=== PATIENT | female | born 1995 | race Caucasian/White ===

== ENCOUNTER 2020-01-12 11:31 | Emergency (ER) | payer MEDICARE, SELFPAY ==
[2020-01-12 11:48] VITALS: BP 112/68; PULSE 78; RESP 18; TEMP 37.1; O2SAT 100
--- NOTE | 2020-01-12 11:58 | ED.EYEPROB ---
HPI - Eye Problem General Chief complaint: Eye Problems Stated complaint: right eye Time Seen by Provider: 01/12/20 11:55 Source: patient and RN notes reviewed Mode of arrival: ambulatory Limitations: no limitations History of Present Illness HPI Narrative: 24-year-old female presents with concern for right eyelid swelling and tenderness. Reports occasional blurry vision. Denies injury, foreign body, drainage MD chief complaint: eye pain Related Data Allergies Allergy/AdvReac Type Severity Reaction Status Date / Time Quinolones AdvReac Unknown Other Verified 01/12/20 11:48 Review of Systems Review of Systems: Narrative: CONSTITUTIONAL: Denies malaise, chills, sweats, or fever. EYES: Reports blurry vision in the right eye, right eyelid swelling, tenderness. Denies drainage, eye redness. ENT: Denies rhinorrhea, congestion, sinus pain, otalgia or sore throat. CARDIOVASCULAR: Denies chest pain, palpitations SKIN: Denies rash or itching. MUSCULOSKELETAL: Denies myalgia. NEUROLOGIC: Denies headache. All systems reviewed & are unremarkable except as noted in HPI and below PMFSH Comments At time of signature, agree with nursing past medical, surgical, social and family history. There is no relevant family history pertinent to the presenting complaint Exam Narrative: Exam Narrative: GENERAL: Well-appearing, well-nourished, and in no acute distress. HEAD: Normocephalic, atraumatic. EYES: PERRLA, conjunctivae clear, and EOMI. No nystagmus. Right upper eyelid superficial edema, tenderness. No periorbital edema ENT: Nares clear, turbinates pink, no rhinorrhea or epistaxis. Mucous membranes moist. NECK: Supple. CHEST: No respiratory distress. Speaks in full sentences. HEART: Regular rate and rhythm. SKIN: Warm, dry, no rash. NEURO: Alert and oriented x3. PSYCH: Normal mood and affect Course Course Emergency Course: Patient is aware of diagnosis, understands and agrees to treatment plan. Anticipatory guidance given. Patient agrees to follow-up as directed and is aware of reasons to seek care at the emergency department. Portions of this record may have been created with voice recognition software Vital Signs Vital signs: Vital Signs Temperature 98.8 F 01/12/20 11:48 Pulse Rate 78 01/12/20 11:48 Respiratory Rate 18 01/12/20 11:48 Blood Pressure 112/68 01/12/20 11:48 Pulse Oximetry 100 01/12/20 11:48 Temperature 98.8 F 01/12/20 11:48 Pulse Rate 78 01/12/20 11:48 Respiratory Rate 18 01/12/20 11:48 Blood Pressure 112/68 01/12/20 11:48 Pulse Oximetry 100 01/12/20 11:48 Reviewed. MDM - Eye Problem MDM Narrative Medical decision making narrative: Consideration of the following conditions may be warranted for the presenting problem, they are not final diagnoses: Bacterial conjunctivitis, allergic conjunctivitis, viral conjunctivitis, foreign body, blepharitis, chalazion, hordeolum, corneal abrasion. Exam findings show no acute concerns or changes; patient is non-toxic appearing and is in no distress. Patient is appropriate for outpatient treatment and follow-up. Critical Care Time Critical Care Time Critical Care Time: No Discharge Plan Discharge Clinical Impression: Hordeolum Qualifiers: Hordeolum type: internum Laterality: right Eyelid: upper Qualified Code(s): H00.021 - Hordeolum internum right upper eyelid Patient Disposition: Home, Self-Care Condition: Stable Instructions: Antibiotic Maliha Mancia (ED) Additional Instructions: Do not touch or rub your eye. Use a warm washcloth on your eye for 15 minutes at least 4 times daily Take antibiotics Practice good handwashing and hygiene to prevent spread of infection You may take Tylenol or ibuprofen for pain Follow-up with PCP or fabrication supervisor if condition is not improving in 2-3days. Go to the emergency room if you have pain behind your eye, pressure behind her eye, difficulty seeing, or other severe symptoms Prescri
== END 2020-01-12 12:11 | disposition home or self-care (01) ==
PROVIDERS: Emergency Provider Nurse Practitioner; PCP Family Medicine
DX: H00.021 Hordeolum internum right upper eyelid (principal)
CPT/HCPCS: 99213; G0463

== ENCOUNTER 2020-03-18 15:24 | Emergency (ER) | payer MEDICARE, SELFPAY ==
--- NOTE | ~2020-03-18 | CT_ITS ---
EXAMINATION: CT abdomen pelvis w con DATE: 03/18/2020 16:51 INDICATION: Low abdominal pain. TECHNIQUE: Computed tomography (CT) of the abdomen and pelvis was performed with 100 mL Omnipaque 350 intravenous contrast. Automated exposure control and iterative reconstruction technique were employe d. The dose-length product was 204.29 mGy-cm. COMPARISON: CT abdomen and pelvis 01/22/2018 FINDINGS: The visualized portions of the lung bases are clear without pneumonia or pleural effusion. The heart size is normal. No pericardial effusion. The liver, gallbladder, spleen, pancreas, adrenal glands, and kidneys are normal. There is a Sherwood catheter in expected position. There are no dilated loops of bowel. There is a large volume of stool in colon. The appendix is normal. There are no patho logically enlarged lymph nodes. There is no free intraperitoneal fluid. There is a retained electrode in right S3 neural foramen. The bones are unremarkable. IMPRESSION: 1. Retained electrode in right S3 neural foramen. Reviewed, dictated and finalized at location A.
[2020-03-18 15:31] VITALS: BP 112/87; PULSE 99; RESP 17; TEMP 37.1; O2SAT 99
[2020-03-18 15:58] LABS: Basophils Percent Auto 0.3 % (0.2-1.2); Eosinophils Absolute Auto 0.1 K/mm3 (0-0.3); Eosinophils Percent Auto 0.6 % (0-4.4); Hematocrit 42.5 % (37.0-47.0); Hemoglobin 14.7 g/dL (12.0-15.0); Immature Granulocyte Absolute 0.03 K/mm3 (0.00-0.031); Immature Granulocyte Percent A 0.3 % (0-0.5); Lymphocytes Absolute Auto 2.58 K/mm3 (0.9-3.2); Lymphocytes Percent Auto 22.3 % (18.3-44.2); Mean Corpuscular HGB Conc 34.6 g/dl (32-36); Mean Corpuscular Hemoglobin 31.3 pg (26-34); Mean Corpuscular Volume 90.4 fl (80-100); Mean Platelet Volume 10.3 fl (7.4-10.4); Monocytes Absolute Auto 0.8 K/mm3 (0.1-0.6); Monocytes Percent Auto 6.6 % (2.6-8.5); Neutrophils Absolute Auto 8.1 K/mm3 (1.3-6.7); Neutrophils Percent Auto 69.9 % (45.5-73.1); Platelet Count Result 284 k/mm3 (150-375); Red Cell Distribution Width 11.9 % (11.5-14.5); White Blood Count 11.6 K/mm3 (4.5-10.0)
[2020-03-18 16:02] LABS: Add Urine Microscopic? YES; Appearance Urine Clear (Clear); Bilirubin Urine Negative (Negative); Blood Urine Negative (Negative); Glucose Urine UA Negative (Negative); Ketones Urine Negative (Negative); Leukocyte Esterase Ur Trace LEU/UL (Negative); Mucus Urine Few /lpf; Nitrate Urine Negative (Negative); Protein Urine 1+ mg/dL (Negative); Squamous Epithelial Cell Urine Occasional /hpf (Few); Urobilinogen Urine Negative mg/dL (<2.0)
--- NOTE | 2020-03-18 16:06 | ED.ABDPAIN ---
HPI - Abdominal Pain General Chief Complaint: Urogenital-Female Stated Complaint: SOFIA CATHETER PAIN Time Seen by Provider: 03/18/20 15:44 Source: patient Mode of arrival: ambulatory Limitations: no limitations History of Present Illness HPI narrative: This patient is a 25 year old female with history of urethral stricture, interstitial cystitis, and fibromyalgia who presents for evaluation of lower abdominal pain. Patient states she was evaluated at [facility] last night for urinary retention and lower abdominal pain. She states that she developed lower abdominal yesterday so she went to [facility]. She had a sofia catheter inserted but she reports her lower abdominal pain has been constant and it is worsening. She continues to have drainage from her catheter. She reports nausea and vomiting. Related Data Allergies Allergy/AdvReac Type Severity Reaction Status Date / Time Quinolones AdvReac Unknown Other Verified 03/18/20 17:01 Review of Systems Review of Systems: All systems reviewed & are unremarkable except as noted in HPI and below Constitutional: Constitutional: Denies chills and Denies fever(s) Gastrointestinal: Gastrointestinal: Reports abdominal pain, Reports nausea and Reports vomiting Genitourinary: Genitourinary: Reports pelvic pain and Reports vaginal discharge Musculoskeletal: Musculoskeletal: Reports back pain PMFSH Past Medical History Medical History (Updated 03/18/20 @ 19:07 by Stephanie Walsh MD) Interstitial cystitis Other urethral stricture, female Surgical History Surgical History (Updated 03/18/20 @ 16:09 by Stephanie Walsh MD) History of bladder surgery Social History Social History (Updated 03/18/20 @ 16:07 by Stephanie Walsh MD) Smoking packs per day: 0.5 Smoking cigarettes per day: 10.0 Gender identity (if verbalized by the patient): Female Exam Narrative: Exam Narrative: GENERAL: Well-appearing, well-nourished, and in no acute distress. HEAD: Normocephalic, atraumatic EYES: PERRLA and EOMI, conjunctiva clear without discharge THROAT:Mucous membranes moist, NECK: Supple, without lymphadenopathy or mass RESPIRATORY: No respiratory distress, Airway patent, Respirations non-labored, Clear to auscultation without rales, rhonchi or wheeze HEART: Regular rate and rhythm. No murmur heard. Normal peripheral pulses. ABDOMEN: Soft, suprapubic, nondistended, normal active bowel sounds. No masses. No rebound or guarding, No organomegaly. EXTREMITIES: No edema, normal strength with full range of motion. SKIN: Warm, dry, normal color without rash NEURO: Alert and oriented x3. CN 2-12 grossly intact. No focal deficits. PSYCH: Normal mood and affect. : Speculum Exam - Vagina: abnormal vaginal discharge yellow Speculum Exam - Cervix: Cervical os closed Bimanual exam- vagina & uterus: cervical motion tenderness Course Reevaluation(s) Reevaluation #1: Patient appears comfortable. She has quite a bit of discharge so will treat for PID. CT does not show cause of pain and catheter is functionly. Patient was notified of electrode Date: 03/18/20 Time: 19:05 Vital Signs Vital signs: Vital Signs Temperature 98.7 F 03/18/20 15:31 Pulse Rate 99 03/18/20 15:31 Respiratory Rate 17 03/18/20 15:31 Blood Pressure 112/87 03/18/20 15:31 Pulse Oximetry 99 03/18/20 15:31 Temperature 98.7 F 03/18/20 15:31 Pulse Rate 81 03/18/20 19:39 Respiratory Rate 16 03/18/20 19:39 Blood Pressure 112/58 L 03/18/20 19:39 Pulse Oximetry 98 03/18/20 19:39 MDM - Abdominal Pain Lab Data Attestation: I reviewed the patient's lab results. Result diagrams: 03/18/20 15:50 03/18/20 15:50 Labs: Lab Results 03/18/20 03/18/20 03/18/20 Range/Units 15:50 15:50 15:50 WBC 11.6 H (4.5-10.0) K/mm3 RBC 4.70 (4.2-5.4) M/mm3 Hgb 14.7 (12.0-15.0) g/dL Hct 42.5 (37.0-47.0) % MCV 90.4 (80-100) fl [facility]
[2020-03-18 16:07] LABS: Specific Grav Ur 1.031 (1.001-1.035)
[2020-03-18 16:08] LABS: Color Urine Light Yellow (Yellow)
[2020-03-18 16:09] LABS: Alanine Aminotransferase 21 U/L (4-35); Albumin Level 4.8 g/dL (3.5-5.1); Alkaline Phosphatase 66 U/L (38-126); Aspartate Amino Transferase 28 U/L (14-36); Bilirubin,Total 1.2 mg/dL (0.2-1.3); Blood Urea Nitrogen 19 mg/dL (7-17); Calcium 9.7 mg/dL (8.4-10.2); Carbon Dioxide 20 mmol/L (22-30); Chloride 106 mmol/L (98-107); Estimated CRCL calculation 103 ml/min; Estimated Glomerular Filt Rate > 60; Glucose 90 mg/dL (65-105); Potassium 4.2 mmol/L (3.4-5.0); Sodium 136 mmol/L (137-145)
[2020-03-18] MEDS: ONDANSETRON INJ 4 MG/2 ML VIAL IV PUSH (16:24)
[2020-03-18] MEDS: KETOROLAC 30 MG/ML VIAL (*BKC) IV PUSH (16:24)
[2020-03-18] MEDS: HYOSCYAMINE SULFATE 0.0625 MG TABLET PO (17:04)
[2020-03-18] MEDS: cefTRIAXone 250 MG VIAL IM (18:46)
[2020-03-18 19:39] VITALS: BP 112/58; PULSE 81; RESP 16; O2SAT 98
== END 2020-03-18 19:41 | disposition home or self-care (01) ==
PROVIDERS: Emergency Medicine; Emergency Provider General Practice; PCP Family Medicine
DX: N73.9 Female pelvic inflammatory disease, unspecified (principal)
CPT/HCPCS: 36415; 74177; 80053; 81001; 81025; 85025; 87070; 87491; 87591; 87808; 96372; 96374; 96375; 99284; A9270; J0696; J1885; J2405; Q9967

== ENCOUNTER → 2020-04-09 14:28 | Outpatient (CLI) | payer MEDICARE, SELFPAY ==
--- NOTE | ~2020-04-09 | US_ITS ---
US breast LT limited 04/09/2020 14:44 Indication: Follow-up lump in left breast. Patient recently stopped nursing. Family history of breast cancer. Procedure: High-resolution ultrasound of the left breast. Comparison: 09/09/2019 Findings: At 2-3:00 position, 4 cm from the nipple in the area of palpable concern there is a relativ raiza isoechoic mass with internal vascularity and central echogenicity. This mass measures 1.7 x 1.7 x 0.5 cm, likely an intramammary lymph node. No other masses identified. Impression: 1: Probable benign left breast mass at 2-3:00, 4 cm from the nipple. BI-RADS CATEGORY 3-PROBABLY BENIGN FINDING RECOMMENDATION: Six-month follow-up left breast ultrasound recommended. Reviewed, dictated and finalized at location A. Impression: 1: Probable benign left breast mass at 2-3:00, 4 cm from the nipple. BI-RADS CATEGORY 3-PROBABLY BENIGN FINDING RECOMMENDATION: Six-month follow-up left breast ultrasound recommended.
== END ==
PROVIDERS: PCP Family Medicine; Visit Provider Nurse Practitioner Obstetrics & Gynecology
DX: N63.20 Unspecified lump in the left breast, unspecified quadrant (principal); R92.8 Other abnormal and inconclusive findings on diagnostic imaging of breast
CPT/HCPCS: 76642

== ENCOUNTER 2020-05-09 18:15 | Emergency (ER) | payer MEDICARE, SELFPAY ==
--- NOTE | 2020-05-09 19:08 | PC.NURSE ---
Pt to intake desk from waiting room. Pt states she called a different hospital and they dont have a wait so she is going there. Pt left with a steady gait to parking lot.
== END 2020-05-09 19:08 | disposition left against medical advice (07) ==
PROVIDERS: PCP Family Medicine
DX: Z53.21 Procedure and treatment not carried out due to patient leaving prior to being seen by health care provider (principal)
CPT/HCPCS: 99199

== ENCOUNTER 2020-06-26 19:04 | Emergency (ER) | payer MEDICARE, SELFPAY ==
--- NOTE | ~2020-06-26 | XR_ITS ---
LUMBAR SPINE INDICATION: Low back pain with radiation to the leg TECHNIQUE: 3 views lumbar spine COMPARISON: None FINDINGS: No fracture, subluxation or dislocation. No evidence for spondylolysis or spondylolisthesi s. Vertebral bodies and disk spaces are preserved. There is residual stimulator lead in the right pe lvis. IMPRESSION: 1: No acute abnormality of the lumbar spine identified. Reviewed, dictated and finalized at location A.
--- NOTE | ~2020-06-26 | XR_ITS ---
XR pelvis 1-2V 06/26/2020 21:38 Indication: Left leg pain extending to the toes. Procedure: AP view of the pelvis Comparison: No prior studies for comparison. Findings: Pelvic rings are intact. Sacral foramen are symmetric. Hips are symmetric. No fracture or t raumatic malalignment. There is residual segments of stimulator lead in the pelvis. Impression: 1: No significant bone or joint abnormality. Reviewed, dictated and finalized at location A. Impression: 1: No significant bone or joint abnormality.
[2020-06-26 19:13] VITALS: BP 144/102; PULSE 81; RESP 20; TEMP 36.4; O2SAT 100
--- NOTE | 2020-06-26 21:04 | ED.EXTPRO ---
HPI - Extremity Problem General Chief complaint: Extremity Problem,Nontraumatic Stated complaint: left leg pain Time Seen by Provider: 06/26/20 20:13 Source: patient History of Present Illness HPI Narrative: 25-year-old female presents to emergency department for left inner thigh discomfort for the past 3 days that radiates down to her foot. Patient states she has never had this in the past before. Patient states it is a burning sensation, and notes some shooting pain. Denies any history of injuries or trauma. She states she has taken 800 mg of Motrin to help with the pain. Patient denies , last menstrual cycle 4 days ago. No urinary symptoms. No abdominal pain. No nausea or vomiting. Related Data Home Medications Medication Instructions Recorded Confirmed No Home Medications 06/26/20 06/26/20 Allergies Allergy/AdvReac Type Severity Reaction Status Date / Time Quinolones AdvReac Unknown Other Verified 06/26/20 21:04 Review of Systems Review of Systems: Narrative: CONSTITUTIONAL: Denies fever, chills, or sweats. EYES: Denies visual changes, redness, or discharge. ENT: Denies rhinorrhea, congestion, sore throat, or otalgia. CARDIOVASCULAR: Denies chest pain, palpitations, or edema. RESPIRATORY: Denies cough or dyspnea. GASTROINTESTINAL: Denies abdominal pain, nausea, vomiting, or diarrhea. GENITOURINARY: Denies dysuria or hematuria. SKIN: Denies rash or itching. MUSCULOSKELETAL: Left leg discomfort NEUROLOGIC: Left leg numbness, and shooting pain PSYCHIATRIC: Denies anxiety or depression. All systems reviewed & are unremarkable except as noted in HPI and below (ROS) PMFSH Past Medical History Medical History Interstitial cystitis Other urethral stricture, female Surgical History Surgical History History of bladder surgery Social History Social History Smoking packs per day: 0.5 Smoking cigarettes per day: 10.0 Gender identity (if verbalized by the patient): Female Exam Narrative: Exam Narrative: GENERAL: Well-appearing, well-nourished, and in no acute distress. HEAD: Normocephalic, atraumatic. EYES: PERRLA and EOMI. ENT: Nares clear, no rhinorrhea or epistaxis. Mucous membranes moist. NECK: Supple. CHEST: Clear to auscultation. No respiratory distress. HEART: Regular rate and rhythm. No murmur heard. Normal peripheral pulses. 1+ DP pulses bilaterally. ABDOMEN: Soft, nontender, nondistended, normal active bowel sounds. EXTREMITIES: Normal range of motion. No edema. MSK: Left inner thigh pain with straight leg raise to 45 degrees. SKIN: Warm, dry, no rash. NEURO: No focal deficits. Alert and oriented x3. Equal sensation to light touch of lower extremities bilaterally PSYCH: Normal mood and affect. Course Vital Signs Vital signs: Vital Signs Temperature 36.4 C 06/26/20 19:13 Pulse Rate 81 06/26/20 19:13 Respiratory Rate 20 06/26/20 19:13 Blood Pressure 144/102 H 06/26/20 19:13 Pulse Oximetry 100 06/26/20 19:13 Temperature 36.6 C 06/26/20 22:39 Pulse Rate 67 06/26/20 22:39 Respiratory Rate 16 06/26/20 22:39 Blood Pressure 121/70 06/26/20 22:39 Pulse Oximetry 98 06/26/20 22:39 MDM - Extremity (Nontraumatic) MDM Narrative Medical decision making narrative: 22:55 -evaluated patient, no new complaints at this time. Patient has unremarkable blood work and x-ray. D-dimer negative, low suspicion for DVT at this time. Patient likely has some type of tendinitis or muscle strain. No history of IV drug use. Low suspicion for epidural abscess or cauda equina. Counseled patient to take Tylenol or Motrin/ibuprofen as needed for pain. Follow-up with her medical provider within 1 week. Return to emergency department if the symptoms persist, worsen, or other concerns Medical Records Attestat
[2020-06-26 21:22] LABS: Basophils Absolute Auto 0.1 K/mm3 (0.0-0.1); Basophils Percent Auto 0.5 % (0.2-1.2); Eosinophils Absolute Auto 0.1 K/mm3 (0-0.3); Eosinophils Percent Auto 1.2 % (0-4.4); Hematocrit 43.8 % (37.0-47.0); Hemoglobin 14.8 g/dL (12.0-15.0); Immature Granulocyte Absolute 0.03 K/mm3 (0.00-0.031); Immature Granulocyte Percent A 0.3 % (0-0.5); Lymphocytes Absolute Auto 3.54 K/mm3 (0.9-3.2); Lymphocytes Percent Auto 33.6 % (18.3-44.2); Mean Corpuscular HGB Conc 33.8 g/dl (32-36); Mean Corpuscular Volume 91.8 fl (80-100); Mean Platelet Volume 10.3 fl (7.4-10.4); Monocytes Absolute Auto 0.6 K/mm3 (0.1-0.6); Monocytes Percent Auto 5.6 % (2.6-8.5); Neutrophils Absolute Auto 6.2 K/mm3 (1.3-6.7); Neutrophils Percent Auto 58.8 % (45.5-73.1); Platelet Count Result 237 k/mm3 (150-375); Red Blood Count 4.77 M/mm3 (4.2-5.4); Red Cell Distribution Width 11.4 % (11.5-14.5); White Blood Count 10.6 K/mm3 (4.5-10.0)
[2020-06-26] MEDS: KETOROLAC 15 MG/ML VIAL (*BKC) IV PUSH (21:22)
[2020-06-26 21:23] VITALS: BP 111/74; PULSE 62; RESP 18; TEMP 36.8; O2SAT 99
[2020-06-26 21:33] LABS: Alanine Aminotransferase 21 U/L (4-35); Albumin Level 4.5 g/dL (3.5-5.1); Alkaline Phosphatase 48 U/L (38-126); Anion Gap 10 mmol/L (8-16); Aspartate Amino Transferase 26 U/L (14-36); Bilirubin,Total 0.6 mg/dL (0.2-1.3); Blood Urea Nitrogen 13 mg/dL (7-17); Calcium 9.7 mg/dL (8.4-10.2); Carbon Dioxide 26 mmol/L (22-30); Chloride 104 mmol/L (98-107); Estimated CRCL calculation 98 ml/min; Estimated Glomerular Filt Rate > 60; Glucose 123 mg/dL (65-105); Potassium 3.5 mmol/L (3.4-5.0); Sodium 140 mmol/L (137-145)
[2020-06-26 21:59] LABS: D Dimer 0.28 ug/mL (<0.48)
[2020-06-26 22:39] VITALS: BP 121/70; PULSE 67; RESP 16; TEMP 36.6; O2SAT 98
== END 2020-06-26 23:12 | disposition home or self-care (01) ==
PROVIDERS: Emergency Provider Emergency Medicine; PCP Family Medicine
DX: S86.912A Strain of unspecified muscle(s) and tendon(s) at lower leg level, left leg, initial encounter (principal); X58.XXXA Exposure to other specified factors, initial encounter
CPT/HCPCS: 36415; 72100; 72170; 80053; 81025; 85025; 85380; 96374; 99284; J1885

== ENCOUNTER 2020-11-12 17:57 | Emergency (ER) | payer MEDICARE, SELFPAY ==
--- NOTE | 2020-11-12 18:00 | ED.GENADULT ---
HPI - General Adult General Chief complaint: Upper Respiratory Infection Stated complaint: Sore Throat Time Seen by Provider: 11/12/20 18:00 Source: patient Mode of arrival: ambulatory Limitations: no limitations History of Present Illness HPI narrative: 25-year-old female patient presents to the [facility] with complaints of sore throat that started last night. Patient states that she thought it might have been allergies however today she started feeling kind of not well and having some body aches and just overall not feeling well. Denies fevers, ear pain, runny nose, stuffy nose or coughing. Denies any abdominal pain, nausea, vomiting or diarrhea. Patient was Covid positive in August 2020. Related Data Home Medications Medication Instructions Recorded Confirmed No Home Medications 06/26/20 06/26/20 Allergies Allergy/AdvReac Type Severity Reaction Status Date / Time Quinolones AdvReac Unknown Other Verified 11/12/20 18:07 Review of Systems Review of Systems: Narrative: CONSTITUTIONAL: Denies fever, chills, or sweats. Positive body aches EYES: Denies visual changes, redness, or discharge. ENT: Denies rhinorrhea, congestion, positive sore throat, denies otalgia. CARDIOVASCULAR: Denies chest pain, palpitations, or edema. RESPIRATORY: Denies cough or dyspnea. GASTROINTESTINAL: Denies abdominal pain, nausea, vomiting, or diarrhea. GENITOURINARY: Denies dysuria or hematuria. SKIN: Denies rash or itching. MUSCULOSKELETAL: Denies back pain, joint pain, or myalgia. NEUROLOGIC: Denies headache, numbness, or weakness. PSYCHIATRIC: Denies anxiety or depression. [facility] Past Medical History Medical History (Updated 11/12/20 @ 18:28 by KEVIN Sue) Interstitial cystitis Other urethral stricture, female SARS-CoV-2 positive August 2020 Surgical History Surgical History History of bladder surgery Social History Social History Smoking packs per day: 0.5 Smoking cigarettes per day: 10.0 Gender identity (if verbalized by the patient): Female Comments At the time of my signature I agree with nursing past medical history, surgical, social, and family history. There is no relevant family history pertinent to the presenting complaint. Exam Narrative: Exam Narrative: GENERAL: Well-appearing, well-nourished, and in no acute distress. HEAD: Normocephalic, atraumatic. EYES: PERRLA and EOMI. ENT: Nares clear, no rhinorrhea or epistaxis. Mucous membranes moist. Posterior pharynx with slight erythema. No tonsillar edema no exudates or lesions present. Bilateral TMs are clear with no erythema or foreign bodies in the canal. NECK: Supple. No lymphadenopathy CHEST: Clear to auscultation. No respiratory distress. HEART: Regular rate and rhythm. No murmur heard. Normal peripheral pulses. ABDOMEN: Soft, nontender, nondistended, normal active bowel sounds. EXTREMITIES: Normal range of motion. No edema. SKIN: Warm, dry, no rash. NEURO: No focal deficits. Alert and oriented x3. Course Reevaluation(s) Reevaluation #1: Reevaluated patient after her strep test had resulted. Notified her that her rapid strep today is negative. Discussed with patient we will send it off for culture and if the culture comes back positive in the next day or 2 then we will call her and place her on antibiotics at that time. Discussed with patient I encouraged her to take a 24-hour antihistamine, warm salt water gargles, Tylenol and ibuprofen as needed for pain. Patient verbalized understanding denies any other questions or concerns at this time. Date: 11/12/20 Time: 18:29 Vital Signs Vital signs: Vital Signs Temperature 35.8 C L 11/12/20 18:19 Pulse Rate 58 L 11/12/20 18:19 Respiratory Rate 16 11/12/20 18:19 Blood Pressure 106/73 11/12/20 18:19 Pulse Oximetry 100 11/12/20 18:19 Temperature 35.8 C L 11/12/20 1
[2020-11-12 18:19] VITALS: BP 106/73; PULSE 58; RESP 16; TEMP 35.8; O2SAT 100
== END 2020-11-12 18:30 | disposition home or self-care (01) ==
PROVIDERS: Emergency Provider Nurse Practitioner Family; PCP Family Medicine
DX: J02.9 Acute pharyngitis, unspecified (principal); F17.210 Nicotine dependence, cigarettes, uncomplicated; Z86.16 Personal history of COVID-19
CPT/HCPCS: 87081; 87880; 99213; G0463

== ENCOUNTER 2021-12-03 13:55 | Emergency (ER) | payer MEDICARE, SELFPAY ==
[2021-12-03 14:04] VITALS: BP 119/64; PULSE 92; RESP 18; TEMP 36.6; O2SAT 100
--- NOTE | 2021-12-03 14:38 | ED.SKABFB ---
HPI - Skin/Abscess/Foreign Bdy General Chief complaint: Skin/Abscess/Foreign Body Stated complaint: Lt Breast Pain,Fever,Vomiting Time Seen by Provider: 12/03/21 14:10 Source: patient Mode of arrival: ambulatory Limitations: no limitations History of Present Illness HPI narrative: Ms. Catalan is a 26-year-old female patient presenting to the clinic today with complaints of left-sided breast pain, fever, and vomiting. This all began last night. She reports that she has breast pain to the mid breast. She had contacted her OB and they thought that she may have the beginning of some mastitis and recommended her her to be evaluated in urgent care today. She denies any breast changes or discharge coming from her nipples. She is 17 weeks . Has a 3-year-old at home. She is not currently breast-feeding. Has taken some Tylenol this morning and this had alleviated her temperature. She has past medical history of interstitial cystitis. Related Data Home Medications Medication Instructions Recorded Confirmed [id number] 1 pkg PO DAILY 12/03/21 12/03/21 [Daily ] Allergies Allergy/AdvReac Type Severity Reaction Status Date / Time Quinolones AdvReac Unknown Other Verified 12/03/21 14:08 Review of Systems Review of Systems: Pertinent positives per HPI. Patient denies any rash, headache, visual changes, dizziness, cough, runny nose, sore throat, shortness of breath, chest pain, palpitations, nausea, vomiting, diarrhea, constipation, abdominal pain, or any urinary issues. [facility] Past Medical History Medical History Interstitial cystitis Other urethral stricture, female SARS-CoV-2 positive August 2020 Surgical History Surgical History History of bladder surgery Social History Social History Smoking packs per day: 0.5 Smoking cigarettes per day: 10.0 Gender identity (if verbalized by the patient): Female Comments At the time of my signature, I reviewed and agree with the nursing past medical, surgical, social, and family history. There is no relevant family history pertinent to the patient complaint. Exam Narrative: General: Well-developed, well nourished, in no apparent distress. Head: Normocephalic, atraumatic Breast: Left breast only assessed. No redness, swelling, or erythema, no dimpling or nipple discharge, normal skin appearance, tender to palpation to the left medial and mid breast without palpation of obvious cyst or mass. Ynes RN at bedside during exam. Cardio: Regular rate and rhythm, s1 and s2 normal, no murmur appreciated. Resp: Clear to auscultation bilaterally, no rhonchi, rales, wheezing or rubs. Abdomen: Soft, pliable, bowel sounds present in all quadrants, non-tender to palpation, no organomegly, no CVAT tenderness. Course Course Emergency Course: Portions of this record may have been created with voice recognition software. Level of Care: Express Care Visit Vital Signs Vital signs: Vital Signs Temperature 36.6 C 12/03/21 14:04 Pulse Rate 92 12/03/21 14:04 Respiratory Rate 18 12/03/21 14:04 Blood Pressure 119/64 12/03/21 14:04 Pulse Oximetry 100 12/03/21 14:04 Temperature 36.6 C 12/03/21 14:04 Pulse Rate 92 12/03/21 14:04 Respiratory Rate 18 12/03/21 14:04 Blood Pressure 119/64 12/03/21 14:04 Pulse Oximetry 100 12/03/21 14:04 Vital signs reviewed MDM - Skin/Abscess/Foreign Bdy MDM Narrative Medical decision making narrative: At the time of assessment, patient was resting comfortably on the exam table. Left breast assessment was normal however she had point tenderness to the left medial and left mid breast. No obvious mass or cyst palpable. She did have a fever of 101.3 ?F that was alleviated with Tylenol. Temperature today is
== END 2021-12-03 14:57 | disposition home or self-care (01) ==
PROVIDERS: Emergency Provider Nurse Practitioner Family; PCP Family Medicine
DX: O90.89 Other complications of the puerperium, not elsewhere classified (principal); N64.4 Mastodynia; R50.9 Fever, unspecified; Z3A.17 17 weeks gestation of pregnancy; Z86.16 Personal history of COVID-19
CPT/HCPCS: 81003; 87804; 99213; G0463

== ENCOUNTER 2022-01-06 19:06 | Outpatient (CLI) | payer MEDICARE, SELFPAY ==
[2022-01-06 19:30] VITALS: BP 115/60; PULSE 80
[2022-01-06 19:45] VITALS: BP 113/57; PULSE 78
[2022-01-06 19:56] VITALS: BP 115/60; PULSE 84
== END 2022-01-06 19:58 | disposition home or self-care (01) ==
LOC: ANHOBOP 19:19 → ANHOBPP 19:21
PROVIDERS: PCP Family Medicine; Visit Provider Advanced Practice Midwife
DX: O41.8X90 Other specified disorders of amniotic fluid and membranes, unspecified trimester, not applicable or unspecified (principal)
CPT/HCPCS: 59025; 84112; 99199

== ENCOUNTER 2022-02-17 17:44 | Emergency (ER) | payer MEDICARE, SELFPAY ==
[2022-02-17 18:04] VITALS: BP 121/67; PULSE 98; RESP 18; TEMP 36.3; O2SAT 98
--- NOTE | 2022-02-17 18:13 | ED.SKABFB ---
HPI - Skin/Abscess/Foreign Bdy General Chief complaint: Skin/Abscess/Foreign Body Stated complaint: spider bite rt arm Time Seen by Provider: 02/17/22 18:13 Source: patient, RN notes reviewed and old records reviewed Mode of arrival: ambulatory Limitations: no limitations History of Present Illness HPI narrative: 27-year-old female presents to the [facility] with complaints of a spider bite to the right arm. She reports that she got bit by a spider yesterday while cleaning out her basement. States she has had hot flashes since. Small pink without increased warmth noted to the right proximal forearm. No drainage, fluctuance, increased warmth. Has a scabbed over center 28 weeks Related Data Home Medications Medication Instructions Recorded Confirmed No Home Medications 02/17/22 02/17/22 Allergies Allergy/AdvReac Type Severity Reaction Status Date / Time Quinolones AdvReac Unknown Other Verified 12/03/21 14:08 Review of Systems Review of Systems: All systems reviewed & are unremarkable except as noted in HPI and below Constitutional: Constitutional: Reports no additional constitutional complaints, Denies chills and Denies fever(s) Eyes: Eyes: Reports no additional eye complaints ENT: Reports system reviewed and no additional complaints, except as documented Cardiovascular: Cardiovascular: Reports no additional cardiovascular complaints Respiratory: Respiratory: Reports no additional respiratory complaints Gastrointestinal: Gastrointestinal: Reports no additional gastrointestinal complaints Musculoskeletal: Musculoskeletal: Reports no additional musculoskeletal complaints Integumentary/Breasts: Skin/Breast: Reports as per HPI Neurologic: Reports system reviewed and no additional complaints, except as documented Psychiatric: Psychiatric: Reports no additional psychiatric complaints Allergic/Immunologic: Allergic/Immunologic: Reports no additional allergic/immunologic complaints [facility] Past Medical History Medical History Interstitial cystitis Other urethral stricture, female SARS-CoV-2 positive August 2020 Surgical History Surgical History History of bladder surgery Social History Social History Smoking packs per day: 0.5 Smoking cigarettes per day: 10.0 Gender identity (if verbalized by the patient): Female Comments At the time of my signature, I reviewed and agree with the nursing past medical, surgical, social, and family history. There is no relevant family history pertinent to the patient complaint. Exam Const: General: healthy appearing, no acute distress and alert Nutritional Appearance: well nourished Orientation/consciousness: patient oriented x3 Limitations: no limitations HENMT: Head: normal to inspection Ears: external ears normal Eyes: General: appearance normal, both eyes and all related structures Pupils: Equal, round and reactive pupils present Neck: Neck: normal visual inspection, no lymphadenopathy and no meningeal signs Chest: Chest palpation & inspection: normal inspection of the chest Resp: Effort & Inspection: normal respiratory effort and no use of accessory muscles Auscultation: clear to auscultation bilaterally, no crackles, no rales, no rhonchi and no wheezes Cardio: Rate: regular rate Rhythm: regular rhythm GI: GI Palp: Yes Soft to palpation and No Tenderness to palpation present (GI) Back/Spine/Pelvis: Cervical Spine: normal cervical lordosis Thoracic/Lumbar Spine: thoracic and lumbar spine normal to inspection Skin: General skin exam: normal color Rashes: no rashes Wounds: no wounds Other: 1 cm pink raised area Without increased warmth, surrounding erythema or fluctuance. No swelling noted. Positive radial pulse. Sensation intact to all 5 fingers. Capillary r
== END 2022-02-17 18:25 | disposition home or self-care (01) ==
PROVIDERS: Emergency Provider Nurse Practitioner; PCP Family Medicine
DX: O9A.212 Injury, poisoning and certain other consequences of external causes complicating pregnancy, second trimester (principal); Z3A.25 25 weeks gestation of pregnancy; S40.861A Insect bite (nonvenomous) of right upper arm, initial encounter; W57.XXXA Bitten or stung by nonvenomous insect and other nonvenomous arthropods, initial encounter; Z86.16 Personal history of COVID-19
CPT/HCPCS: 99211; G0463

== ENCOUNTER 2022-03-16 17:16 | Observation (INO) | payer MEDICARE, SELFPAY ==
[2022-03-16] VITALS (16 sets, daily range): BP systolic 111–130; BP diastolic 54–72; PULSE 77–99; TEMP 36.7; O2SAT 100; BMI 27.8
--- NOTE | 2022-03-16 17:49 | OBADM ---
This patient, Filomena Catalan, admitted to the OB room OB Post 116 for observation. Patient/family oriented to hospital policies and general routines including ID bracelet, bed and alarms, visiting hours, pain management, procedures, bathroom and other care routines, personal items, smoking policy, room service/diet, and visiting hours. Patient/Family are encouraged to report perceived risks to care and to ask questions if they do not understand what they are told or what they should do.
[2022-03-16 17:51] LABS: Appearance Urine Slightly Cloudy (Clear); Bilirubin Urine Negative (Negative); Color Urine Yellow (Yellow); Glucose Urine UA Negative (Negative); Ketones Urine 1+ mg/dL (Negative); Leukocyte Esterase Ur Negative LEU/UL (NEGATIVE); Nitrate Urine Negative (Negative); Protein Urine Negative (Negative); Specific Grav Ur 1.025 (1.001-1.035); Urobilinogen Urine 0.2 mg/dL (<2.0); pH Urine 6.5 (5.0-9.0)
[2022-03-16 17:54] LABS: Add Urine Microscopic? YES; Blood Urine Trace-Intact (Negative)
[2022-03-16 17:58] LABS: Bacteria Urine Trace /hpf; Mucus Urine Few /lpf; Squamous Epithelial Cell Urine Moderate /hpf (Few); WBC Urine 0-3 /hpf (0-3)
[2022-03-16] MEDS: CYCLOBENZAPRINE HCL 10 MG TABLET PO (18:12)
[2022-03-16] MEDS: DEXTROSE 5%/0.45% SOD CHL 1,000 ML 999 ML IV CONT ×2 (18:13→20:19)
[2022-03-16 18:51] LABS: Basophils Absolute Auto 0.1 K/mm3 (0.0-0.1); Basophils Percent Auto 0.4 % (0.2-1.2); Eosinophils Absolute Auto 0.1 K/mm3 (0-0.3); Eosinophils Percent Auto 0.6 % (0-4.4); Hematocrit 35.4 % (37.0-47.0); Hemoglobin 11.6 g/dL (12.0-15.0); Immature Granulocyte Absolute 0.44 K/mm3 (0.00-0.031); Immature Granulocyte Percent A 2.1 % (0-0.5); Lymphocytes Absolute Auto 3.39 K/mm3 (0.9-3.2); Lymphocytes Percent Auto 16.3 % (18.3-44.2); Mean Corpuscular HGB Conc 32.8 g/dl (32-36); Mean Corpuscular Hemoglobin 30.9 pg (26-34); Mean Corpuscular Volume 94.4 fl (80-100); Mean Platelet Volume 9.9 fl (7.4-10.4); Monocytes Absolute Auto 1.4 K/mm3 (0.1-0.6); Monocytes Percent Auto 6.7 % (2.6-8.5); Neutrophils Absolute Auto 15.4 K/mm3 (1.3-6.7); Neutrophils Percent Auto 73.9 % (45.5-73.1); Platelet Count Result 266 k/mm3 (150-375); Red Blood Count 3.75 M/mm3 (4.2-5.4); Red Cell Distribution Width 12.7 % (11.5-14.5); White Blood Count 20.8 K/mm3 (4.5-10.0)
--- NOTE | 2022-03-16 18:58 | PC.NURSE ---
Updated Dr. Ackerman on patient contractions. Patient feeling increased intermittent pain on left side and states pain feels like when she was in labor with previous child. Contractions palpate mild. Orders received.
[2022-03-16 19:00] LABS: Alanine Aminotransferase 12 U/L (6-35); Albumin Level 4.1 g/dL (3.5-5.1); Alkaline Phosphatase 468 U/L (38-126); Anion Gap 4 mmol/L (8-16); Aspartate Amino Transferase 22 U/L (14-36); Bilirubin,Total 0.4 mg/dL (0.2-1.3); Blood Urea Nitrogen 7 mg/dL (7-17); Carbon Dioxide 24 mmol/L (22-30); Chloride 106 mmol/L (98-107); Estimated CRCL calculation 159 ml/min; Estimated Glomerular Filt Rate > 60; Glucose 77 mg/dL (65-110); Potassium 3.8 mmol/L (3.4-5.0); Sodium 134 mmol/L (137-145)
[2022-03-16] MEDS: TERBUTALINE SULFATE 1 MG/ML VIAL 0.25 MG SUB-Q (19:06)
--- NOTE | 2022-03-16 19:06 | PC.NURSE ---
Plan of care discussed with patient. Patient educated on terbutaline prior to administering. Patient agrees to plan of care and denies any questions. Terbutaline administered as ordered.
[2022-03-16] MEDS: oxyCODONE HCL (*CRX) 5 MG TAB IR PO ×2 (20:19→22:17)
--- NOTE | 2022-03-16 21:56 | PC.NURSE ---
Updated Dr. Ackerman on patient assessment. Patient states that her pain is improved following medication. Patient to be given 5mg oxycodone PO prior to discharge and then patient will call office in AM.
--- NOTE | 2022-03-16 22:12 | PC.NURSE ---
Discharge instructions reviewed with patient. Patient instructed to call office in AM to get prescription for pain medications. Patient instructed to have someone pick her up to bring her home after dose of oxycodone. Patient states understanding of discharge instructions and denies questions.
--- NOTE | 2022-03-18 07:30 | PM.OBTRLD ---
OB - Triage/Final Diagnosis Visit Information Comments/Additional reasons for admission: I have assessed the risk for this patient, Filomena Catalan, and determined that she would benefit from observation care. Evaluation Laboratory results: Laboratory Tests 03/16/22 03/16/22 03/16/22 17:42 18:46 18:46 WBC 20.8 H RBC 3.75 L Hgb 11.6 L D Hct 35.4 L MCV 94.4 MCH 30.9 MCHC 32.8 RDW 12.7 Plt Count 266 MPV 9.9 Immature Gran % (Auto) 2.1 H Neut % (Auto) 73.9 H Lymph % (Auto) 16.3 L [place] % (Auto) 6.7 Eos % (Auto) 0.6 Baso % (Auto) 0.4 Lymph # (Auto) 3.39 H [place] # (Auto) 1.4 H Eos # (Auto) 0.1 Baso # (Auto) 0.1 Abs Immat Gran (auto) 0.44 H Absolute Neuts (auto) 15.4 H Absolute Nucleated RBC 0.0 Nucleated RBC % 0.0 Sodium 134 L Potassium 3.8 Chloride 106 Carbon Dioxide 24 Anion Gap 4 L BUN 7 D Creatinine 0.40 L Estim Creat Clear Calc 159 Estimated GFR > 60 Glucose 77 Calcium 9.0 Total Bilirubin 0.4 AST 22 ALT 12 Alkaline Phosphatase 468 H Total Protein 7.0 Albumin 4.1 Urine Color Yellow Urine Appearance Slightly cloudy Urine pH 6.5 Ur Specific [place] 1.025 Urine Protein Negative Urine Glucose (UA) Negative Urine Ketones 1+ H Ur Blood (Man) Trace-intact Urine Nitrate Negative Urine Bilirubin Negative Urine Urobilinogen 0.2 Ur Leukocyte Esterase Negative Urine RBC 6-10 H Urine WBC 0-3 Ur Squamous Epith Cells Moderate H Urine Bacteria Trace Urine Mucus Few H Final Diagnosis (1) Flank pain in patient: Code(s): O26.899 - Other specified related conditions, unspecified trimester; R10.9 - Unspecified abdominal pain Status: Acute
== END 2022-03-16 22:15 | disposition home or self-care (01) ==
PROVIDERS: Admitting Provider Obstetrics & Gynecology; PCP Family Medicine; Visit Provider Obstetrics & Gynecology
DX: O26.893 Other specified pregnancy related conditions, third trimester (principal); R10.9 Unspecified abdominal pain; Z3A.31 31 weeks gestation of pregnancy
CPT/HCPCS: 36415; 80053; 81001; 85025; 87086; 87088; 96361; 96365; 96372; 96375; A9270; G0378; G0379; J0131; J0696; J3105

== ENCOUNTER 2022-03-21 15:17 | Outpatient (CLI) | payer MEDICARE, MEDICAID, SELFPAY ==
--- NOTE | ~2022-03-21 | US_ITS ---
EXAMINATION: US renal BI DATE: 03/21/2022 15:46 INDICATION: Flank pain. TECHNIQUE: Multiple ultrasound grayscale images of the kidneys were obtained. COMPARISON: CT abdomen and pelvis 03/18/2020 FINDINGS: The right kidney measures 14.2 x 4.6 x 5.0 cm. The left kidney measures 13.1 x 5.4 x 6.5 cm. The kidn eys demonstrate normal parenchymal echogenicity. There is mild left hydronephrosis. The arterial resi stive indices are normal in the kidneys. The bladder is normal. IMPRESSION: 1. Mild left hydronephrosis. Reviewed, dictated and finalized at location A.
== END 2022-03-21 15:18 | disposition home or self-care (01) ==
PROVIDERS: PCP Family Medicine; Visit Provider Obstetrics & Gynecology
DX: R10.9 Unspecified abdominal pain (principal); N13.30 Unspecified hydronephrosis
CPT/HCPCS: 76775

== ENCOUNTER 2022-04-07 17:43 | Observation (INO) | payer MEDICARE, MEDICAID, SELFPAY ==
[2022-04-07 18:13] VITALS: PULSE 98; O2SAT 99
[2022-04-07 18:17] VITALS: BP 121/68; PULSE 91
[2022-04-07 18:41] LABS: Bacteria Urine 1+ /hpf; Mucus Urine Few /lpf; Squamous Epithelial Cell Urine Moderate /hpf (Few)
[2022-04-07 18:49] LABS: Appearance Urine Clear (Clear); Bilirubin Urine Negative (Negative); Blood Urine Negative (Negative); Color Urine Yellow (Yellow); Glucose Urine UA Negative (Negative); Ketones Urine Trace mg/dL (Negative); Leukocyte Esterase Ur Negative LEU/UL (Negative); Nitrate Urine Negative (Negative); Protein Urine 1+ mg/dL (Negative); Specific Grav Ur >= 1.030 (1.001-1.035); Urobilinogen Urine 0.2 mg/dL (<2.0)
[2022-04-07 18:52] LABS: Add Urine Microscopic? YES
--- NOTE | 2022-04-07 18:56 | PC.NURSE ---
Called Dr. Winter with lab results, heart rate tracing, and contraction rate 2 in 40 minutes. Orders received to D/C pt, heat, rest, Tylenol, and schedule appointment with the office to manage pain.
[2022-04-07 19:00] VITALS: BP 115/66; PULSE 80
[2022-04-07 19:10] VITALS: BMI 28.2
--- NOTE | 2022-04-07 19:15 | OBADM ---
This patient, Filomena Catalan, admitted to the OB room OB Post 117 for observation. Patient/family oriented to hospital policies and general routines including ID bracelet, bed and alarms, visiting hours, pain management, procedures, bathroom and other care routines, personal items, smoking policy, room service/diet, and visiting hours. Patient/Family are encouraged to report perceived risks to care and to ask questions if they do not understand what they are told or what they should do.
--- NOTE | 2022-04-20 17:57 | P.PNOB_ITS ---
OB - Triage/Final Diagnosis Visit Information Comments/Additional reasons for admission: I have assessed the risk for this patient, Filomena Catalan, and determined that she would benefit from observation care. Evaluation Laboratory results: Laboratory Tests 04/07/22 18:17 Urine Color Yellow Urine Appearance Clear Urine pH 6.0 Ur Specific [place] >= 1.030 Urine Protein 1+ H Urine Glucose (UA) Negative Urine Ketones Trace Ur Blood (Man) Negative Urine Nitrate Negative Urine Bilirubin Negative Urine Urobilinogen 0.2 Leukocyte Esterase Rfl Negative Urine RBC 3-5 H Urine WBC 4-6 H Ur Squamous Epith Cells Moderate H Urine Bacteria 1+ H Urine Mucus Few H Final Diagnosis (1) False labor: Code(s): O47.9 - False labor, unspecified Status: Acute
== END 2022-04-07 19:27 | disposition home or self-care (01) ==
PROVIDERS: Admitting Provider Obstetrics & Gynecology; PCP Family Medicine; Visit Provider Obstetrics & Gynecology
DX: O47.03 False labor before 37 completed weeks of gestation, third trimester (principal); Z3A.34 34 weeks gestation of pregnancy
CPT/HCPCS: 81001; G0378; G0379

== ENCOUNTER 2022-05-08 06:05 | Inpatient (IN) | payer MEDICARE, MEDICAID, SELFPAY ==
[2022-05-08] VITALS (160 sets, daily range): BP systolic 77–124; BP diastolic 39–84; PULSE 64–123; RESP 16–18; TEMP 36.4–37.2; O2SAT 98–100; BMI 29.2
--- NOTE | 2022-05-08 06:05 | LDADM ---
This patient, Filomena Catalan, was admitted to Labor/Delivery/Recovery 105 on 05/08/22 at 06:05. Plans for labor, pain management and were discussed with patient. Patient/family oriented to hospital policies and general routines including ID bracelet, bed and alarms, visiting hours, pain management, procedures, bathroom and other care routines, personal items, smoking policy, room service/diet and guest tray routines, security routines, and visiting hours. Patient/Family are encouraged to report perceived risks to care and to ask questions if they do not understand what they are told or what they should do. See OBIX for further documentation.
--- OUTSIDE RECORDS SUMMARY | 2022-05-08 06:36 | XMS_ITS ---
:1995 Author Care Team Providers Name Role Phone Paofabio Larrycameron Velasquez Primary Care Provider Unavailable Allergies Code Code System Name Reaction Severity Status Onset 22480902 RxNorm Dilaudid ? ? Active ? RxNorm Dilantin ? ? Deactivated ? Medications Name Status Start Date Stop Date ? ? acyclovir 800 mg tablet Active ? Not avai lable alprazolam 0.5 mg tablet Active ? Not lucero ilable amitriptyline 10 mg tablet Active ? Not a vailable amitriptyline 25 mg tablet Active ? Not a vailable amoxicillin 250 mg capsule Active ? Not a vailable amoxicillin 500 mg capsule Active ? Not a vailable vtrzznfcfv-gpahoscqprdli-rnntheqh 50 mg-325 mg-40 mg Active ? Not available tablet ceftriaxone 1 gram solution for injection Active ? Not available Take 1 g by injection route. cephalexin 500 mg capsule Active ? Not av ailable ciprofloxacin 500 mg tablet Active ? Not available cyclobenzaprine 10 mg tablet Active ? Not available cyclobenzaprine 5 mg tablet Active ? Not available diazepam 5 mg tablet Active ? Not availab le diazepam 5 mg-7.5 mg-10 mg rectal kit Active ? Not available DOK 100 mg capsule Active ? Not available ergocalciferol (vitamin D2) 1,250 mcg (50,000 unit) Active ? Not available capsule fluconazole 150 mg tablet Active ? Not av ailable TK 1 T PO QD gentamicin 40 mg/mL injection solution Active ? Not available Take 2 mL by injection route. hydrocodone 10 mg-acetaminophen 325 mg tablet Active ? Not available TK 1 T PO Q 6 H hydrocodone 5 mg-acetaminophen 325 mg tablet Active
--- OUTSIDE RECORDS SUMMARY | 2022-05-08 06:36 | XMS_ITS | Encounter Summary ---
:1995 Author Care Team Providers Name Role Phone Amish Weaver MD Primary Care Provider [phone] Reason for Visit None recorded. Assessment and Plan 1. Abnormality of heart ? non-stress test Discussion Note: None recorded.Patient educational handouts: No information available. Plan of Care Reminders Provider Appointments Ob Routine 05/16/2022 1:00PM Anna garcia CNM Lab None recorded. ? ? Referral None recorded. ? ? Procedures None recorded. ? ? Surgeries None recorded. ? ? Imaging Non-stress Test 04/23/2022 [place] Medications Name Start Date ? ? ? Medications Administered None recorded. Vitals None recorded. Results Lab Results None recorded. Allergies Code Code System Name Reaction Severity Onset NKDA ? ? ? Problems Name Status Onset Date Source ? Active 11/26/2021 ? Mixed Anxiety and Depressive Disorder Active ? ? Chronic Interstitial Cystitis Active ? ? Ex-smoker Active ? ? Procedures Date Name Performed by ? 08/31/2018 Nerve Block Information not avai lable 08/31/2014 Laparoscopy Information not avai lable 08/31/2013 Dilation of Urethra Information not avai lable 08/31/2013 Cystoscopy Information not avai lable 03/31/2022 US, Obstetric, Follow-up [place] [address] [place] [address] (Work Place)
--- OUTSIDE RECORDS SUMMARY | 2022-05-08 06:36 | XMS_ITS | Encounter Summary ---
:1995 Author Care Team Providers Name Role Phone Amish Weaver MD Primary Care Provider [phone] Reason for Visit OB visit OB [id number] EDC 05/14/2022 LMP 08/06/2021 Assessment and Plan Assessment Note Patient is _34__weeks . Discuss ed plan. 1. Routine care Discussion Note: None recorded.Patient educational handouts: No information available. Plan of Care Reminders Provider Appointments Ob Routine 05/16/2022 1:00PM Anna garcia CNM Lab None recorded. ? ? Referral None recorded. ? ? Procedures None recorded. ? ? Surgeries None recorded. ? ? Imaging None recorded. ? ? Medications Name Start Date ? ? ? Medications Administered None recorded. Vitals Height Weight BMI Blood Pressure 5 ft 2 in 156 lbs 28.5 kg/m2 119/80 mm[Hg] Results Lab Results None recorded. Allergies Code [...]
--- OUTSIDE RECORDS SUMMARY | 2022-05-08 06:36 | XMS_ITS | Encounter Summary ---
:1995 Author Care Team Providers Name Role Phone Amish Weaver MD Primary Care Provider [phone] Reason for Visit OB visit OB [id number] EDC 05/14/2022 LMP 08/06/2021 Assessment and Plan Assessment Note Patient is __39_weeks . Discuss ed plan. 1. Routine care [...] BMI Blood Pressure 5 ft 2 in 159 lbs 29.1 kg/m2 115/75 mm[Hg] Results Lab Results None recorded. Allergies [...] avai lable 08/31/2013 Cystoscopy Information not avai labluisa
--- OUTSIDE RECORDS SUMMARY | 2022-05-08 06:36 | XMS_ITS ---
:1995 Author Care Team Providers Name Role Phone RAAF CANADA MD Primary Care Provider [phone] Allergies Code Code System Name Reaction Severity Status Onset NKDA ? Medications Name Status Start Date Stop Date ? ? amoxicillin 500 mg capsule Completed ? 04/02 azithromycin 250 mg tablet Completed ? 10/15 bbxhbaxxiz-tikaibjyochtl-kmscwmdj 50 mg-325 mg-40 mg capsule Completed 11/29/2018 03/22/2019 take 1 - 2 capsule by oral route every 4 hours as needed not to exceed 6 capsules per 24hrs Dolly 0.35 mg tablet Completed ? 10/14/2021 Take 1 tablet every day by oral route. cephalexin 500 mg capsule Completed ? 2021 TAKE 1 CAPSULE EVERY 8 HOURS FOR 7 DAYS cyclobenzaprine 10 mg tablet Completed ? diazepam 2 mg tablet Completed ? 10/15/2021 dicloxacillin 500 mg capsule Completed ? 10/2019 doxycycline monohydrate 100 mg capsule Completed ? 04/02/2020 hydrocodone 10 mg-acetaminophen 325 mg tablet Completed ? 04/02/2020 hydrocodone 5 mg-acetaminophen 325 mg tablet Completed ? 04/02/2020 levofloxacin 500 mg tablet Completed ? 04/02 lorazepam 0.5 mg tablet Completed ? 04/02/20 metronidazole 0.75 % (37.5 mg/5 gram) vaginal gel Completed ? 10/15/2021 INSERT ONE APPLICATORFUL VAGINALLY AT BEDTIME FOR 5 NIGHTS metronidazole 500 mg tablet Completed ? 10/30 TAKE 1 TABLET BY MOUTH EVERY 12 HOURS FOR 7 DAYS nitrofurantoin monohydrate/macrocrystals 100 mg Completed ? 04/23/2022 capsule nystatin-triamcinolone 100,000 unit/gram-0.1 % topical ointm ent Completed 02/09/2019 03/22/2019 apply by
--- OUTSIDE RECORDS SUMMARY | 2022-05-08 06:36 | XMS_ITS | Encounter Summary ---
:1995 Author Care Team Providers Name Role Phone Amish Weaver MD Primary Care Provider [phone] Reason for Visit None recorded. Assessment and Plan 1. COVID-19 ? US, obstetric, follow-up Discussion Note: None recorded.Patient educational handouts: No information available. Plan of Care Reminders Provider Appointments Ob Routine 05/16/2022 1:00PM Anna garcia CNM Lab None recorded. ? ? Referral None recorded. ? ? Procedures None recorded. ? ? Surgeries None recorded. ? ? Imaging US, Obstetric, Follow-up 04/23/2022 [place] [facility] Medications Name Start Date ? ? ? [...] not avai lable 03/31/2022 US, Obstetric, Follow-up [place] [address] [place] [address] (Work Place
--- OUTSIDE RECORDS SUMMARY | 2022-05-08 06:36 | XMS_ITS | Encounter Summary ---
:1995 Author Care Team Providers Name Role Phone Amish Weaver MD Primary Care Provider [phone] Reason for Visit None recorded. Assessment and Plan 1. COVID-19 ? US, obstetric, follow-up Discussion Note: None recorded.Patient educational handouts: No information available. Plan of Care Reminders Provider Appointments Ob Routine 05/16/2022 1:00PM Anna garcia CNM Lab None recorded. ? ? Referral None recorded. ? ? Procedures None recorded. ? ? Surgeries None recorded. ? ? Imaging US, Obstetric, Follow-up 03/31/2022 [facility] Medications Name Start Date ? [...] lable 08/31/2013 Cystoscopy Information not avai lable 03/21/2022 , [address] [place] [phone] (work
--- OUTSIDE RECORDS SUMMARY | 2022-05-08 06:36 | XMS_ITS | Encounter Summary ---
:1995 Author Care Team Providers Name Role Phone Amish Weaver MD Primary Care Provider [phone] Reason for Visit OB visit Assessment and Plan Assessment Note Patient is ___weeks . Discussed plan. 1. Routine care Discussion Note: None [...] BMI Blood Pressure 5 ft 2 in 153 lbs 28 kg/m2 120/70 mm[Hg] Results Lab Results None recorded. Allergies [...] lable 08/31/2013 Cystoscopy Information not avai lable 02/13/2022 US, Obstetric, Follow-up [place]
--- OUTSIDE RECORDS SUMMARY | 2022-05-08 06:36 | XMS_ITS | Encounter Summary ---
:1995 Author Care Team Providers Name Role Phone Amish Weaver MD Primary Care Provider [phone] Reason for Visit OB visit Assessment and [...] BMI Blood Pressure 5 ft 2 in 155 lbs 28.3 kg/m2 118/77 mm[Hg] Results Lab Results None recorded. Allergies [...] not avai lable 02/13/2022 US, Obstetric, Follow-up [place]
--- OUTSIDE RECORDS SUMMARY | 2022-05-08 06:36 | XMS_ITS | Encounter Summary ---
:1995 Author Care Team Providers Name Role Phone Amish Weaver MD Primary Care Provider [phone] Reason for Visit OB visit OB [id number] EDC 05/14/2022 LMP 08/06/2021 Assessment and Plan 1. Routine care Discussion Note: None recorded.Patient [...] ft 2 in 159 lbs 29.1 kg/m2 117/74 mm[Hg] Results Lab Results None recorded. Allergies [...] not avai lable 03/31/2022 US, Obstetric, Follow-up [place] [address] [address]
--- OUTSIDE RECORDS SUMMARY | 2022-05-08 06:36 | XMS_ITS | Encounter Summary ---
:1995 Author Care Team Providers Name Role Phone Amish Weaver MD Primary Care Provider [phone] Reason for Visit None recorded. Assessment and Plan 1. Low lying placenta ? US, obstetric, follow-up Discussion Note: None recorded.Patient educational handouts: No information available. Plan of Care Reminders Provider Appointments Ob Routine 05/16/2022 1:00PM Anna garcia CNM Lab None recorded. ? ? Referral None recorded. ? ? Procedures None recorded. ? ? Surgeries None recorded. ? ? Imaging US, Obstetric, Follow-up 02/13/2022 [facility] gib[facility] Medications Name Start Date ? [...] not avai lable 02/13/2022 US, Obstetric, Follow-up [place] [address] [place] [address] (Work
[2022-05-08] MEDS: LACTATED RINGERS 1,000 ML 125 ML IV CONT ×2 (06:42→07:16)
[2022-05-08 06:43] LABS: Basophils Absolute Auto 0.1 K/mm3 (0.0-0.1); Basophils Percent Auto 0.3 % (0.2-1.2); Eosinophils Absolute Auto 0.1 K/mm3 (0-0.3); Eosinophils Percent Auto 0.8 % (0-4.4); Hematocrit 33.8 % (37.0-47.0); Hemoglobin 11.2 g/dL (12.0-15.0); Immature Granulocyte Absolute 0.23 K/mm3 (0.00-0.031); Immature Granulocyte Percent A 1.5 % (0-0.5); Lymphocytes Absolute Auto 2.68 K/mm3 (0.9-3.2); Lymphocytes Percent Auto 17.4 % (18.3-44.2); Mean Corpuscular HGB Conc 33.1 g/dl (32-36); Mean Corpuscular Hemoglobin 29.1 pg (26-34); Mean Corpuscular Volume 87.8 fl (80-100); Mean Platelet Volume 9.6 fl (7.4-10.4); Monocytes Percent Auto 6.6 % (2.6-8.5); Neutrophils Absolute Auto 11.3 K/mm3 (1.3-6.7); Neutrophils Percent Auto 73.4 % (45.5-73.1); Platelet Count Result 258 k/mm3 (150-375); Red Blood Count 3.85 M/mm3 (4.2-5.4); Red Cell Distribution Width 13.8 % (11.5-14.5); White Blood Count 15.4 K/mm3 (4.5-10.0)
--- NOTE | 2022-05-08 07:22 | WPDANESEPP ---
Anes - Eval Pre Procedure Procedure: Labor Epidural Date/Time: 05/08/22 07:22 Surgeon: Maggy Preop Diagnosis: Labor Pain Pre Op Diagnosis: labor Patient Data Age: 27 Gender: F Height: 1.57 m Weight: 72.5 kg Last Vital Signs Pulse 78 05/08/22 07:20 BP 111/54 L 05/08/22 07:20 Pulse Ox 100 05/08/22 07:21 O2 Del Method Room Air 05/08/22 06:48 Allergies Allergy/AdvReac Type Severity Reaction Status Date / Time Quinolones AdvReac Unknown Other Verified 12/03/21 14:08 Home Medications Medication Instructions Recorded Confirmed Type vits 75-iron 28 mg-folic 1 pkg PO 05/08/22 History acid 800 mcg-omega3 440 mg oral pack Laboratory Tests 05/08/22 05/08/22 05/08/22 06:38 06:38 06:38 WBC 15.4 K/mm3 H K/mm3 (4.5-10.0) RBC 3.85 M/mm3 L M/mm3 (4.2-5.4) Hgb 11.2 g/dL L g/dL (12.0-15.0) Hct 33.8 % L % (37.0-47.0) MCV 87.8 fl fl (80-100) MCH 29.1 pg pg (26-34) MCHC 33.1 g/dl g/dl (32-36) RDW 13.8 % % (11.5-14.5) Plt Count 258 k/mm3 k/mm3 (150-375) MPV 9.6 fl fl (7.4-10.4) Immature Gran % (Auto) 1.5 % H % (0-0.5) Neut % (Auto) 73.4 % H % (45.5-73.1) Lymph % (Auto) 17.4 % L % (18.3-44.2) [place] % (Auto) 6.6 % % (2.6-8.5) Eos % (Auto) 0.8 % % (0-4.4) Baso % (Auto) 0.3 % % (0.2-1.2) Lymph # (Auto) 2.68 K/mm3 K/mm3 (0.9-3.2) [place] # (Auto) 1.0 K/mm3 H K/mm3 (0.1-0.6) Eos # (Auto) 0.1 K/mm3 K/mm3 (0-0.3) Baso # (Auto) 0.1 K/mm3 K/mm3 (0.0-0.1) Abs Immat Gran (auto) 0.23 K/mm3 H K/mm3 (0.00-0.031) Absolute Neuts (auto) 11.3 K/mm3 H K/mm3 (1.3-6.7) Absolute Nucleated RBC 0.0 K/mm3 K/mm3 (0.0-0.012) Nucleated RBC % 0.0 % % (0.0-0.2) RPR Pending Blood Type A Positive Antibody Screen Pending Patient hx anesthesia problems: none Family hx anesthesia problems: none Results Review: All pre-operative results and documents have been reviewed as part of the pre-operative evaluation. [facility] Past Medical History Medical History Interstitial cystitis Other urethral stricture, female SARS-CoV-2 positive August 2020 Surgical History Surgical History History of bladder surgery Family History Family History Grandparent Congestive heart failure Acute rheumatic arthritis Father Acute rheumatic arthritis Mother Acute rheumatic arthritis Social History Social History Smoking packs per day: 0.5 Smoking cigarettes per day: 10.0 Smoking status: Former smoker Substance use: never Gender identity (if verbalized by the patient): Female Spiritual care concerns: No Exam Day of Procedure 05/08/22 07:22 Patient weight: normal Heart: regular rate and rhythm Lungs: normal air movement Airway: Mallampati scale class II Neurological: alert and oriented
[2022-05-08 07:56] LABS: Rapid Plasma Reagin Non-Reactive (NonReactive)
--- NOTE | 2022-05-08 10:09 | WPDOBADMIT ---
Obstetrics - Admit Note Admission Note: record reviewed. No pertinent additions to the history and/or any subsequent changes in the physical findings that are not consistent with the expected course of the were found. Pt arrived in labor with SROM. SVE /-2 forebag ruptured anticipate vaginal delivery Additions to the history and/or subsequent changes in the physical findings follow. None.
[2022-05-08] MEDS: OXYTOCIN 30 UNITS/NS 500 ML 30 UNITS/500 ML BAG 999 UNITS IV CONT (14:57)
--- NOTE | 2022-05-08 14:59 | PM.OBPRVD ---
OB - Delivery Note Procedure Delivery date: 05/08/22 Procedure: vaginal delivery Induction method: None Delivery augmentation: Rupture of Membranes Delivery monitor: External FHT and External Uterine Route of delivery: Laceration Description: Perineal - 2nd Degree Delivery repair: vicryl Specimen: No Quantitative Blood Loss (ml): 222 Anesthesia type: Epidural Disposition: Floor [place] Baby Date of : 05/08/22 Time of : 14:41 Weeks of gestation at delivery: 39 gender: Male presentation: vertex position: Left Occiput Anterior Placenta delivery description: Spontaneous and Expressed Cord Vessel Description: 3 Vessels, 2 Vessels, Nuchal Cord, Loose, Reduced and Around Body (x2) score one minute: 8 score five minutes: 9 Narrative: mother and baby skin to skin in stable condition
[2022-05-08] MEDS: OXYTOCIN 30 UNITS/NS 500 ML 30 UNITS/500 ML BAG 125 UNITS IV CONT (16:41)
--- NOTE | 2022-05-08 17:45 | PC.NURSE ---
Patient transferred to post room #290 per wheelchair from labor and delivery. Support person present. Oriented to unit, room, information board, rooming in, admission packet and security measures. Patient verbalizes understanding.
[2022-05-08] MEDS: IBUPROFEN 600 MG TABLET PO (18:56)
[2022-05-08] MEDS: ACETAMINOPHEN 325 MG TABLET 650 MG PO (20:38)
--- NOTE | 2022-05-08 21:00 | PC.NURSE ---
Patient instructed to view the discharge video Mother & Baby Care, The First Two Weeks online. Patient was given the opportunity and encouraged to ask questions. Patient verbalized understanding of information shared and has been given the mother/baby guide for home reference.
[2022-05-09 04:00] VITALS: BP 111/84; PULSE 72; RESP 14; TEMP 36.4; O2SAT 99
[2022-05-09] MEDS: IBUPROFEN 600 MG TABLET PO (04:54)
[2022-05-09 05:30] LABS: Hematocrit 34.9 % (37.0-47.0)
--- NOTE | 2022-05-09 07:57 | PM.OBPNVD ---
OB - PN: Subj Subjective Date/time seen: 05/09/22 07:57 s/p vaginal delivery day 1, baby transferred to [facility] OB - PN: Obj Data Labs CBC & Chem 7: 05/09/22 04:57 Labs: Laboratory Results - last 24 hr 05/09/22 04:57 Hgb 11.0 L Hct 34.9 L OB - PN A/P Plan day: 1 Plan: routine care and discharge home Time Spent With Patient Time: Total time spent is greater than 50% in coordination of care (as documented) at patient's floor/unit and/or counseling patient: Review of Systems Review of Systems: All systems reviewed & are unremarkable except as noted in HPI and below Exam Const: General: cooperative and healthy appearing
--- NOTE | 2022-05-09 08:00 | P.DS_ITS ---
DS: Admitting Diagnosis Discharge Date 05/09/22 Admitting Diagnosis labor OB - DS: Summary OB Procedures : None OB Procedures Intrapartum: Spontaneous Vag Delivery OB Procedures: : None Time Spent with Patient Time attestation: Total time spent providing and/or coordinating discharge services: DS: Data Data Completed and Pending Labs on day of discharge: Labs from last 24 hours 05/09/22 04:57 Hgb 11.0 L Hct 34.9 L Discharge Plan Discharge Attending physician on discharge: Faraz Winter Discharging Clinician: Anna Nguyen Patient Disposition: Home, Self-Care Activity: pelvic rest Diet: regular Patient Instructions: Antibiotic Form Stand Alone Forms: General Discharge Information Follow-up/Referrals: Anna Nguyen, YESSIM [Certified Nurse Reproduction Production Manager] - 4 Weeks Discharge Medications: New ibuprofen 600 mg Tablet 600 mg PO Q6H PRN (Reason: Cramping) Qty: 30 0RF Continued Daily [id number] mg-mcg-mg Combo Pack 1 pkg PO Date of admission: 05/08/22 06:05 Primary Care Provider: Meg,Amish Rios Admitting Provider: Faraz Winter Attending physician on admission: Faraz Winter Condition: Stable
[2022-05-09 08:20] VITALS: BP 103/59; PULSE 63; RESP 16; TEMP 36.1; O2SAT 100
[2022-05-09] MEDS: MULTIVIT/MIN/PREN/FOL AC/IRON TABLET 1 TAB PO (08:21)
[2022-05-09] MEDS: DOCUSATE SODIUM 100 MG CAPSULE PO (08:28)
[2022-05-09 10:09] LABS: Mean Platelet Volume 10.3 fl (7.4-10.4); Platelet Count Result 258 k/mm3 (150-375)
--- NOTE | 2022-05-09 10:15 | PC.NURSE ---
Report from Marcella this morning is patient has a pump in the room for pumping and will go home today. Infant has been transferred to [facility].
--- NOTE | 2022-05-09 11:03 | WPDANLDPN2 ---
Anes-Prog Note L&D Date/Time: 05/09/22 11:03 Comfortable throughout: labor and delivery Neuraxial method: epidural Epidural/Spinal procedure site: clean & non-tender Neuro status: Neuro function grossly intact. pt complained of foot tingling and ankle inversion when she walks. explained to her this was not the result of the epidural as her complaintis localized. Asked the nurse to contact her OB to get further instruction related to assistive devices. Cardiovascular status: normal Respiratory status: normal Airway patency: baseline Mental status: baseline Post-Op hydration status: normal Vital Signs: Last Vital Signs Temp 36.1 C L 05/09/22 08:20 Pulse 63 05/09/22 08:20 Resp 16 05/09/22 08:20 BP 103/59 L 05/09/22 08:20 Pulse Ox 100 05/09/22 08:20 O2 Del Method Room Air 05/08/22 06:48 Pain score (VAS): 1 I/O: Intake & Output 05/08/22 05/09/22 05/09/22 23:59 07:59 15:59 Intake Total 500 Balance 500 Patient feedback: Patient satisfied with anesthetic care.
== END 2022-05-09 13:10 | disposition home or self-care (01) | DRG 807 ==
LOC: ANHLDR 06:34 → ANHOB2 17:49
PROVIDERS: Advanced Practice Midwife; Admitting Provider Obstetrics & Gynecology; PCP Family Medicine; Visit Provider Obstetrics & Gynecology
DX: O76 Abnormality in fetal heart rate and rhythm complicating labor and delivery (principal); Z37.0 Single live birth; O70.1 Second degree perineal laceration during delivery; O69.82X0 Labor and delivery complicated by other cord entanglement, without compression, not applicable or unspecified; Z3A.39 39 weeks gestation of pregnancy
CPT/HCPCS: 36415; 84112; 85014; 85018; 85025; 85049; 86592; 86850; 86900; 86901; 97162; A9270; J2590; J2795; J7120

== ENCOUNTER 2022-11-02 08:29 | Emergency (ER) | payer MEDICARE, MEDICAID, SELFPAY ==
[2022-11-02 08:39] VITALS: BP 120/66; PULSE 75; RESP 18; TEMP 36.6; O2SAT 99
--- NOTE | 2022-11-02 09:14 | ED.URI ---
HPI - URI/Sore Throat General Chief Complaint: Upper Respiratory Infection Stated Complaint: cold symptoms,sorethroat Time Seen by Provider: 11/02/22 08:45 Source: patient Mode of arrival: ambulatory Limitations: no limitations History of Present Illness HPI Narrative: Ms. Catalan is a 27-year-old female patient presenting to the clinic today with complaints of sore throat, nasal congestion, chills, body aches, and headache. She reports symptoms have been going on for 4 days. She denies any known exposure to anyone with COVID, flu, or strep. MD elicited complaint: sore throat and nasal congestion Related Data Home Medications Medication Instructions Recorded Confirmed escitalopram oxalate 5 mg tablet 5 mg PO DAILY 11/02/22 11/02/22 Allergies Allergy/AdvReac Type Severity Reaction Status Date / Time Quinolones AdvReac Unknown Other Verified 11/02/22 08:55 Review of Systems Review of Systems: Pertinent positives per HPI. Patient denies any fever, chills, rash, headache, visual changes, dizziness, cough, shortness of breath, chest pain, palpitations, nausea, vomiting, diarrhea, constipation, abdominal pain, or any urinary issues. [facility] Past Medical History Medical History Interstitial cystitis Other urethral stricture, female SARS-CoV-2 positive August 2020 Surgical History Surgical History History of bladder surgery Family History Family History Grandparent Congestive heart failure Acute rheumatic arthritis Father Acute rheumatic arthritis Mother Acute rheumatic arthritis Social History Social History Smoking packs per day: 0.5 Smoking cigarettes per day: 10.0 Smoking status: Former smoker Substance use: never Gender identity (if verbalized by the patient): Female Spiritual care concerns: No Comments At the time of my signature, I reviewed and agree with the nursing past medical, surgical, social, and family history. There is no relevant family history pertinent to the patient complaint. Exam Narrative: General: Well-developed, well nourished, in no apparent distress Head: Normocephalic, atraumatic Eyes: Pupils equally round and reactive to light bilaterally, EOM intact, sclera and conjunctive clear, no discharge, lids normal Ears: TMs intact and clear, ear canals clear, no drainage, grossly hearing normal. Nose: Nares patent, clear nasal discharge, no inflammation, no sinus tenderness. Mouth: Oral pharynx without lesions or masses, good dentition, MMM. Oropharynx red with bilateral tonsillar enlargement and postnasal drip Neck: Supple, trachea midline, mild enlargement of anterior or posterior cervical nodes, no thyroid masses or goiter palpable. Cardio: Regular rate and rhythm, s1 and s2 normal, no murmur appreciated. Resp: Clear to auscultation bilaterally, no rhonchi, rales, wheezing or rubs Course Course Emergency Course: Portions of this record may have been created with voice recognition software. Level of Care: Express Care Visit Vital Signs Vital signs: Vital Signs Temperature 36.6 C 11/02/22 08:39 Pulse Rate 75 11/02/22 08:39 Respiratory Rate 18 11/02/22 08:39 Blood Pressure 120/66 11/02/22 08:39 Pulse Oximetry 99 11/02/22 08:39 Oxygen Delivery Room Air 11/02/22 08:39 Temperature 36.6 C 11/02/22 08:39 Pulse Rate 75 11/02/22 08:39 Respiratory Rate 18 11/02/22 08:39 Blood Pressure 120/66 11/02/22 08:39 Pulse Oximetry 99 11/02/22 08:39 Oxygen Delivery Room Air 11/02/22 08:39 Vital signs reviewed MDM - URI/Sore Throat MDM Narrative Medical decision making narrative: At the time of visit patient resting comfortably on the exam table. COVID and strep screen were obtain
== END 2022-11-02 09:26 | disposition home or self-care (01) ==
PROVIDERS: Emergency Provider Nurse Practitioner Family; PCP Family Medicine
DX: J02.8 Acute pharyngitis due to other specified organisms (principal); R09.82 Postnasal drip; Z87.891 Personal history of nicotine dependence; Z20.822 Contact with and (suspected) exposure to COVID-19
CPT/HCPCS: 87081; 87426; 87880; 99213; C9803; G0463

== ENCOUNTER 2025-04-04 00:17 | Day surgery (SDC) | payer MEDICARE, MEDICAID, SELFPAY ==
--- NOTE | 2025-03-27 13:54 | SUR.PREOP ---
Report to the Outpatient Waiting Room, entrance under the green pavilion located off [facility], at time ___06____ on date ___04/04/25____. Planned Procedure Time: ____729____.? Time changes happen often and if your time is changed the preop area will call you the afternoon before. - You and your visitor will be asked to self-screen and do not enter if you have any COVID symptoms. Please call surgeon if you need to reschedule. - A mask is optional within the hospital at this time. Patients may have clear liquids (water, carbonated beverages, clear teas, apple juice) until 3 hours prior to surgery with a maximum of 20 ounces. - NO CLEAR LIQUIDS AFTER 0430 - No food from midnight until time of surgery and no smoking, or chewing tobacco (or any form of nicotine). No chewing gum, candy or mints. - Infants may have breast milk until 4 hours before surgery, formula 6 hours prior to surgery. - Children will be allowed to drink immediately following surgery.? If applicable, please bring a bottle or sippy cup to assist with drinking. Juice, water, soda, and popsicles are readily available.? For infants on formula, please bring formula the day of surgery.? Pacifiers are allowed. Take only the following medications with a SIP of water on the morning of surgery: N/A DO NOT STOP ANY OF YOUR OTHER PRESCRIPTION MEDICATIONS PRIOR TO SURGERY EXCEPT THE FOLLOWING Hold all vitamins and supplements for 3 days per anesthesiologist. Medications to discontinue per physician N/A Date to take last dose Please no make-up, nail argentine, hairspray, perfume, deodorant, or body powder the day of surgery.? No jewelry (including any body piercings) or valuables the day of surgery, leave them at home.? Please take a shower or bath the night before, or the morning of, surgery with an antibacterial soap.? Wear comfortable, loose fitting clothing.? Children are encouraged to wear pajamas. - Jewelry must be removed prior to entering the operating room.? Rings and piercings that are not removed may be cut off. - The hospital will not accept responsibility for valuables.? - Please leave all valuables, including medications, at home the day of surgery. If you are going home after surgery, a licensed emergency medical technician/driver must drive you home.? - NO public transportation without another adult if you receive anesthesia. - We recommend that an adult stay with you for 24 hours following discharge. - We also recommend that you do not drive, make important decision, drink alcoholic beverages, or take any drugs that were not prescribed by your health care provider for at least 24 hours after your discharge time. For Pediatric surgeries, we recommend two adults accompany the child home. Follow any additional instructions given to you from your surgeon. Telephone instructions given to ROCÍO SCRUGGS and asked if any additional questions and then verbalized understanding. Patient advised to call surgeon office or pre surgery nurse liaison [phone] if any additional questions.
[2025-03-27 14:03] VITALS: BMI 30.2
[2025-04-04] VITALS (8 sets, daily range): BP systolic 105–132; BP diastolic 57–99; PULSE 55–77; RESP 10–18; TEMP 36.1–36.4; O2SAT 98–100; BMI 30.2
--- OUTSIDE RECORDS SUMMARY | 2025-04-04 00:21 | XMS_ITS | Encounter Summary ---
Author Organization [facility] Address [address] [place] [address] Care Team Providers Care Mobile Manager Name Role Phone Amish Weaver MD Primary Care Provider [phone] Encounter Details Date Type Department Care Team (Late st Contact Info) Description 04/10/2021 MyChart Message Enc [facility] Family Medicine - [place] [address] [facility] [facility], [address] [place] [id number] Amish Weaver MD [address] [place], [place] [phone] RE: Other Social History Tobacco Use Types Packs/Day Years Used Date Smoking Tobacco: Every Day Cigarettes 0.3 6 Smokeless Tobacco: Never Comments:benefits and risks involved explained to pt Alcohol Use Standard Drinks/Week Comments No 0 (1 standard drink = 0.6 oz pur e alcohol) PHQ-2 Answer Date Recorded PHQ-2 Score - If the patient scores above 3, please move on to questions 3-9 2 04/10/2021 Comments No Sex and Gender Information Value Date Recorded Sex Assigned at Female 12/08/2024 9:42 AM CDT Legal Sex Female 4:07 PM CDT Gender Identity Female 12/08/2024 9:42 AM CDT Sexual Orientation Straight 12/08/2024 9: 42 AM CDT COVID-19 Exposure Response Date Recorded In the last month, have you been in contact with someone who was confirmed or suspected to have Coronavirus / COVID-19? No / Unsure 04/10/2021 9:24 AM CDT documented as of this encounter Plan of Treatment Not on file documented as of this encounter Visit Diagnoses Not on filedocumented in this encounter Additional Health Concerns Assessment Noted Time PHQ-9 Depression Total Score: 2 04/10/20 21 9:35 AM CDT documented as of this encounter Care Teams Mobile Manager Relationship Specialty Start Date End Date Amish Weaver MD [address] [facility] [address] [place] [address] PCP - General FAMILY PRACTICE 08/15/19 documented as of this encounter
--- OUTSIDE RECORDS SUMMARY | 2025-04-04 00:21 | XMS_ITS ---
Author Organization [facility] Address [address] [place] [address] Phone Care Team Providers Care Hyperion Administrator Name Role Phone Amish Weaver MD Primary Care Provider [facility] Status:Enrolled (Active) Start date:09/28/2024 Enrollment date:09/28/2024 Related social drivers of health:Intimate Partner Violence, Social Connections, Alcohol Use, Tobacco Use, Financial Resource Strain,Depression, Stress, Physical Activity, Food Insecurity, Transportation Needs, Housing Stability, Utilities Continued Care and Services Coordination
--- OUTSIDE RECORDS SUMMARY | 2025-04-04 00:21 | XMS_ITS | Encounter Summary ---
Author Organization [facility] Address [address] [place] [address] Care Team Providers Care Integration Director Name Role Phone Amish Weaver MD Primary Care Provider [phone] Encounter Details Date Type Department Care Team (Late st Contact Info) Description 10/05/2024 [facility]ons[facility] Orthopedicst Message Enc [facility] Family Medicine - [place] [address] [facility], [address] [place] [phone] Amish Weaver MD [address] [facility], [place] [phone] Diesel Retrofit Designer Social History Tobacco Use Types Packs/Day Years Used Date Smoking Tobacco: Former Cigarettes 0.3 6 Smokeless Tobacco: Never Comments:benefits and risks involved explained to pt Alcohol Use Standard Drinks/Week Comments No 0 (1 standard drink = 0.6 oz pur e alcohol) PHQ-2 Answer Date Recorded Patient Health Questionnaire-2 Score 0 09/07/2024 Comments No Sex and Gender Information Value Date Recorded Sex Assigned at Female 12/08/2024 9:42 AM CDT Legal Sex Female 4:07 PM CDT Gender Identity Female 12/08/2024 9:42 AM CDT Sexual Orientation Straight 12/08/2024 9: 42 AM CDT documented as of this encounter Plan of Treatment Not on file documented as of this encounter Visit Diagnoses Not on filedocumented in this encounter Additional Health Concerns Assessment Noted Time PHQ-9 Depression Total Score: 12 023 11:14 AM EXPANSION JOINT FINISHER documented as of this encounter Care Teams Integration Director Relationship Specialty Start Date End Date Amish Weaver MD [address] [facility] [address] [place] [address] PCP - General FAMILY PRACTICE 08/15/19 documented as of this encounter
--- OUTSIDE RECORDS SUMMARY | 2025-04-04 00:21 | XMS_ITS | Clinical Summary ---
Author Organization [facility] Address [address] [place] [address] Phone Care Team Providers Care General Counselor Name Role Phone Amish Weaver MD Primary Care Provider Allergies No known active allergies Medications AMITRIPTYLINE HCL PO Take by mouth. Activ e cyclobenzaprin e (FLEXERIL) 10 MG Tablet Take 1 Tab by mouth 3 times daily as needed for Muscle spasms. 42 Tab 7 Active HYDROcodone-ac etaminophen (NORCO) 5-325 MG Tablet Take 1 Tab by mouth every 4 hours as needed for Pain (for breakthrough pain.). 20 Tab 7 Active Norethindrone, Contraceptive, 0.35 MG Tablet norethindrone (contraceptive) 0.35 mg tablet Active ondansetron (ZOFRAN) 4 MG Tablet Take 1-2 Tabs by mouth every 8 hours as needed for Nausea - 1st line. 10 Tab 9 Active HYDROcodone-ac etaminophen (NORCO) 5-325 MG Tablet Take 1 Tab by mouth every 6 hours as needed for Moderate or more severe pain. 10 Tab 0 Active ketorolac (TORADOL) 10 MG Tablet Take 1 Tablet by mouth every 6 hours as needed for Mild or more severe pain. 15 Tablet 1 Active ketorolac (TORADOL) 10 MG Tablet Take 1 Tablet by mouth every 6 hours as needed for Moderate or more severe pain. 20 Tablet 3 Active Social History Tobacco Use Types Packs/Day Years Used Date Smoking Tobacco: Former Cigarettes Smokeless Tobacco: Never Alcohol Use Standard Drinks/Week Comments No 0 (1 standard drink = 0.6 oz pur e alcohol) Comments No Sex and Gender Information Value Date Recorded Sex Assigned at Not on file Legal Sex Female 7:08 PM CDT Gender Identity Not on file Sexual Orientation Not on file Last Filed Vital Signs Vital Sign Reading Time Taken Comments Blood Pressure 118/83 03/17/2023 1:45 AM CDT Pulse 65 03/17/2023 1:45 AM CDT Temperature 36.4 C (97.5 F) 03/16/2023 9:32 PM CDT Respiratory Rate 16 03/17/2023 1:45 AM CDT Oxygen Saturation 100% 03/17/2023 1:45 AM CDT Inhaled Oxygen Concentration - - Weight 54.4 kg (120 lb) 03/16/2023 9:32 PM CDT Height 157.5 cm (5' 2) 03/16/2023 9:32 PM CDT Body Mass Index 21.95 03/16/2023 9:32 PM CDT Plan of Treatment Health Maintenance Due Date Last Done Comments Hepatitis C Virus (HCV) Screening 1997 Pap Smear 2018 SARS-COV-2 Immunization ( season) 2024 Influenza Immunization (#1) 05/01/202505/02, 05/24/2014, 06/15/2013, Additional history exists Respiratory Syncytial Virus (RSV) Immunization (Adult) (1 - 1-dose 75+ series) 01/20/2072 Hepatitis B Immunization Completed 997, 1997, 1997, Additional history exists DTaP/Tdap/Td Immunization Discontinued 2006, 12/23/2001, 12/23/2001, Additional history exists TdaP Immunization Completed 01/27/2007 Human Papillomavirus (HPV) Immunization Completed 07/03/2008, 03/28/2008, 11/30/2007 Meningococcal Immunization (ACWY) Completed 11/08/2013, 03/28/2008 Pneumococcal Immunization Combined Aged Out No longer eligible based on patient's age to complete this topic Rotavirus Immunization Aged Out No lo nger eligible based on patient's age to complete this topic Insurance MEDICAID [place] Care Teams General Counselor Relationship Specialty Start Date End Date Amish Weaver MD [address] [address] PCP - General Family Medicine 09/25/19
--- OUTSIDE RECORDS SUMMARY | 2025-04-04 00:21 | XMS_ITS | Referral Summary ---
Author Organization [facility] Address [address] [place] [address] Care Team Providers Care Early Learning Teacher Name Role Phone Amish Weaver MD Primary Care Provider [phone] Encounters Date Type Department Care Team Description 02/12/2025 2:05 AM CDT - 02/12/2025 2:08 AM CDT Emergency [facility] Emergency Department [address] [place] [address] Discharge Disposition: Left without being seen from Last 3 Months Allergies No known active allergies Medications [id number] fumarate-FA () 28-800 mg-mcg tablet Take 1 tablet by mouth teacher early childhood development before breakfast Active escitalopram (LEXAPRO) 5 mg tabletIndicatio ns:Anxiety with Depression Take 1 tablet (5 mg total) by mouth every morning 3 Active hydrOXYzine (ATARAX) 25 mg tablet Take 1 tablet (25 mg total) by mouth every 6 (six) hours for 15 days 60 tablet 4 Active EPINEPHrine 0.3 mg/0.3 mL auto-injection syringe Inject 0.3 mL (0.3 mg total) into the muscle as instructed as needed 4 Active cetirizine (ZyrTEC) 10 mg tabletIndicatio ns: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,Pruritus Take 1 tablet (10 mg total) by mouth 2 (two) times a day 60 tablet 11 4 07/01/20 25 Active famotidine (PEPCID) 20 mg tabletIndicatio ns: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,Pruritus Take 1 tablet (20 mg total) by mouth 2 (two) times a day 60 tablet 11 4 07/01/20 25 Active Active Problems Problem Noted Date Diagnosed Date Chronic urticaria 10/03/2024 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 Urethral stricture 01/15/2023 IC (interstitial cystitis) 01/15/2023 Lesion of urinary bladder 01/15/2023 Other mechanical complicatio n of implanted electronic neurostimulator of spinal cord electrode (lead), subsequent encounter 06/29/2020 Overview (06/29/2020): Added automatically from request for surgery [id number] Mass of breast 11/21/2016 Overview (01/23/2017): Breast mass Social History Tobacco Use Types Packs/Day Years Used Date Smoking Tobacco: Former Cigarettes Q uit: 2020 Smokeless Tobacco: Never Tobacco Cessation:Counseling Given: Not Answered Alcohol Use Standard Drinks/Week Comments No 0 (1 standard drink = 0.6 oz pur e alcohol) AUDIT-C Answer Date Recorded Q1: How often do you have a drink containing alc ohol? Monthly or less 2023 Q2: How many drinks containi ng alcohol do you have on a typical day when you are drinking? 1 or 2 2023 Q3: How often do you have si x or more drinks on one occasion? Never 2023 Personal Safety Answer Date Recorded Have you ever been in or are you currently in a harmful physical or emotional relationship or is someone making you feel afraid or unsafe? 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 Gender Identity Not on file Sexual Orientation Not on file Last Filed Vital Signs Vital Sign Reading Time Taken Comments Blood Pressure 136/64 02/12/2025 12:04 AM CDT Pulse 99 02/12/2025 12:04 AM CDT Temperature 36.9 C (98.4 F) 02/12/2025 12:04 AM CDT Respiratory Rate 18 02/12/2025 12:04 AM CDT Oxygen Saturation 99% 02/12/2025 12:04 AM CDT Inhaled Oxygen Concentration - - Weight 72.6 kg (160 lb) 02/12/2025 12:04 AM CDT Height 157.5 cm (5' 2) 02/12/2025 12:04 AM CDT Body Mass Index 29.26 02/12/2025 12:04 AM CDT Plan of Treatment Not on file Procedures Procedure Name Priority Date/Time Associated Diagnosis Comments SERUM HEPATITIS C AB Routine 10/20/2016 3:37 PM WELDING PRODUCTION SUPERVISOR from Last 3 Months or Most Recently Relevant to Health Maintenance Results * Serum Hepatitis C ab (10/20/2016 3:37 PM WELDING PRODUCTION SUPERVISOR) HCV ab Negative Negative CDR HISTOR ICAL RESULTS Serum 10/20/2016 3:37 PM WELDING PRODUCTION SUPERVISOR us Ngoc Ac MD LAB BLOOD ORDERABLES Final Resul t CDR HISTORICAL RESULTS from Last 3 Months or Most Recently Relevant to Health Maintenance Insurance MEDICARE [place] Care Teams Early Learning Teacher Relationship Specialty Start Date End Date Amish Weaver MD [address] [facility] [address] [place], [place] [phone] PCP - General Family Practice 08/25/19
--- OUTSIDE RECORDS SUMMARY | 2025-04-04 00:21 | XMS_ITS | Clinical Summary ---
Author Organization [facility] Address [address] [place] [address] Care Team Providers Care Outside Sales Inspector Name Role Phone Amish Weaver MD Primary Care Provider [phone] Source Comments [facility],non-owned Affiliates and Associated Physician Practices is amultiple site organization consisting of ambulatory clinics and hospital sitesin [place], [place], [place] and [place]. This disclosure is being madepursuant to the Care Everywhere program and may not contain all information available regarding this patient. Last updated 18.[facility] Allergies Active Allergy Reactions Criticality Noted Date Comments Hydromorphone Myalgias,Psychiatric ,Oth er High 04/07/2016 psychotic episode Reaction: unknown, Medications * Be aware that medications may not be up to date on this document. Alwaysverify current medications with the patient. MedroxyPROGESTE Clifford Acetate (DEPO-PROVERA IM) Inject into muscle Every 90 days Active DULoxetine (CYMBALTA) 30 MG capsule Take 30 mg by mouth once daily Active amitriptyline (ELAVIL) 25 MG tablet Take 25 mg by mouth at bedtime Active HYDROcodone-pedro taminophen (NORCO) 7.5-325 MG tablet Take 1 Tab by mouth every 6 hours as needed for Pain 30 Tab 12/25/2016 Active ibuprofen (MOTRIN) 600 MG tablet Take 1 Tab by mouth every 6 hours as needed for Pain 30 Tab 12/25/2016 Active docusate sodium (COLACE) 100 MG capsule Take 1 Cap by mouth 2 times daily 60 Cap 12/25/2016 Active cyclobenzaprine (FLEXERIL) 10 MG tablet Take 1 Tab by mouth 3 times daily as needed for Muscle Spasms 30 Tab 12/25/2016 Active morphine CR 12hr (MS CONTIN) 15 MG tablet Take 1 Tab by mouth every 12 hours With food 12/25/2016 Active ibuprofen (MOTRIN) 600 MG tablet Take 1 Tab by mouth every 6 hours as needed for Pain 20 Tab 01/08/2017 Active oxyCODONE-aceta minophen (PERCOCET) 5-325 MG tablet Take 1 Tab by mouth every 6 hours as needed for Pain 10 Tab 01/08/2017 Active VENTOLIN HFA 108 (90 Base) MCG/ACT inhaler INL 2 PFS ITL Q 4 H PRF WHZ 04/24/2020 Active Active Problems Problem Noted Date Diagnosed Date Left breast mass 04/27/2020 History of frequent urinary tract infections 12/2016 Midline thoracic back pain 12/03/2016 Chronic pelvic pain in female 12/03/2016 Chronic interstitial cystitis 12/03/2016 Current smoker 12/03/2016 Anxiety 12/03/2016 H/O dysmenorrhea 12/03/2016 Bladder disorder 12/03/2016 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 CT negative for appendicitis. Serial Abdominal exams And the Pelvic exam Were unremarkable.Surgery saw her again today and recommended no surgical treatment. Symptoms improved overnight into the morning. Discharge did improved condition. Syncope and collapse 10/28/2010 Headache 10/28/2010 Overview (07/08/2015): Resolved Problems Problem Noted Date Diagnosed Date Resolved Date Constipation 12/03/2016 12/31/2016 Family History Medical History Relation Name Comments Cancer - Ovarian Mother Depression Mother Cancer - Prostate Paternal Grandfather Cancer - Breast Paternal Grandmother Diabetes Paternal Grandmother Heart Disease Paternal Grandmother Relation Name Status Comments Mother Paternal Grandfather Paternal Grandmother Social History Tobacco Use Types Packs/Day Years Used Date Smoking Tobacco: Every Day Cigarettes Smokeless Tobacco: Never Tobacco Cessation:Ready to Q uit: Yes; Counseling Given: Yes Alcohol Use Standard Drinks/Week Comments Yes 0 (1 standard drink = 0.6 oz pur e alcohol) rare Comments No Sex and Gender Information Value Date Recorded Sex Assigned at Not on file Legal Sex 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 Gender Identity Not on file Sexual Orientation Not on file Last Filed Vital Signs Vital Sign Reading Time Taken Comments Blood Pressure 113/78 06/04/2020 9:57 AM CDT Pulse 76 06/04/2020 9:57 AM CDT Temperature 37.1 C (98.8 F) 06/04/2020 9:57 AM CDT Respiratory Rate 20 06/04/2020 9:57 AM CDT Oxygen Saturation 99% 06/04/2020 9:57 AM CDT Inhaled Oxygen Concentration - - Weight 58.5 kg (129 lb) 06/04/2020 9:57 AM CDT Height 157.5 cm (5' 2) 06/04/2020 9:57 AM CDT Body Mass Index 23.59 06/04/2020 9:57 AM CDT Plan of Treatment Health Maintenance Due Date Last Done Comments MEDICARE AWV 12 MONTHS 1997 HEPATITIS C SCREENING 01/15/2015 DTAP/TDAP/TD VACCINES (1 - Tdap) 01/20/2016 HEPATITIS B VACCINE (1 of 3 - 19+ 3-dose series) 01/20/2016 PNEUMOCOCCAL VACCINE (1 of 2 - PCV) 01/20/2016 PAP SMEAR 2018 HPV VACCINE (1 - 3-dose SCDM series) 01/20/2024 COVID-19 VACCINE (1 - 2023- season) 2024 DEPRESSION SCREENING 08/31/2024 INFLUENZA VACCINE (#1) 2025 4, 06/15/2013, 06/16/2012, Additional history exists ZOSTER VACCINE (1 of 2) 2047 HIV SCREENING Completed 02/17/2022 HIB VACCINE Aged Out No longer eligi ble based on patient's age to complete this topic MENINGOCOCCAL (Group B) VACCINE SHARED DECISION-MAKING Aged Out No longer eligible based on patient's age to complete this topic MENINGOCOCCAL GROUPS A/C/Y/W VACCINE Aged Out No longer eligible based on patient's age to complete this topic Medical Devices Implanted Type Area Food Service Ambassador Device Identifier Shelf Expiration Date Model / Serial / Lot [id number] Sns Lead Implanted:Qty: 2 on 12/25/2016 by Gi Freeman MD at [facility] Bilateral : Back 10/31/2020 [id number] / / [id number] Interstim Neurostimulator Ii Implanted:Qty: 1 on 01/08/2017 by Gi Freeman MD at [facility] Left: Back 05/28/2018 [id number] / [id number] / Insurance MEDICARE MEDICARE MEDICAID - [place] Care Teams Outside Sales Inspector Relationship Specialty Start Date End Date Amish Weaver MD [address] [facility] [facility] [address] [place] [address] PCP - General 04/22/20
--- OUTSIDE RECORDS SUMMARY | 2025-04-04 00:21 | XMS_ITS | Encounter Summary ---
Author Organization [facility] Address [address] [place] [address] Care Team Providers Care Voip Engineer Name Role Phone Amish Weaver MD Primary Care Provider [phone] Encounter Details Date Type Department Care Team (Late st Contact Info) Description 07/20/2023 MyCWorld Wide Beauty Exchanget Message Enc [facility] Family Medicine - [place] [address], [address] [place] [phone] Amish Weaver MD [address] [place] [address] UTI/ KIDNEY INFECTION Social History Tobacco Use Types Packs/Day Years Used Date Smoking Tobacco: Former Cigarettes 0.3 6 Smokeless Tobacco: Never Comments:benefits and risks involved explained to pt Alcohol Use Standard Drinks/Week Comments No 0 (1 standard drink = 0.6 oz pur e alcohol) PHQ-2 Answer Date Recorded Patient Health Questionnaire-2 Score 2 09/25/2022 Comments No Sex and Gender Information Value [...] Depression Total Score: 12 023 11:14 AM BEATER DUMPER documented as of this encounter Care Teams Voip Engineer Relationship Specialty Start Date End Date Amish Weaver MD [address] [address] [place] [address] PCP - General FAMILY PRACTICE 08/15/19 documented as of this encounter
--- OUTSIDE RECORDS SUMMARY | 2025-04-04 00:21 | XMS_ITS | Encounter Summary ---
Author Organization [facility] Address [address] [place] [id number] Care Team Providers Care Core Maker Helper Name Role Phone Amish Weaver MD Primary Care Provider [phone] Encounter Details Date Type Department Care Team (Late st Contact Info) Description 09/06/2024 MyCPossible Webt Message Enc [facility] Family Medicine - [place] [address] [facility], [address] [place] [phone] Amish Weaver MD [address] [place], [place] [phone] ECG recent ER visit Social History Tobacco Use Types Packs/Day Years [...] AM CDT documented as of this encounter Functional Status * Over the past 2 weeks, how often have you been bothered by any of the following problems? Question Answer Date of Assessment Author Status Little interest or pleasure in doing things Not at all 09/07/2024 1:08 PM Dorcas Salas MA Active Feeling down, depressed, or hopeless Not at all 09/07/2024 1:08 PM MONUMENT INSTALLER Fanny Keita MA Active Patient Health Questionnaire-2 Score 0 09/07/2024 1:08 PM MONUMENT INSTALLER Deloris Keita MA Active documented as of this encounter Plan of Treatment Not on file documented as of this encounter Visit Diagnoses Not on filedocumented in this encounter Additional Health Concerns Assessment Noted Time PHQ-9 Depression Total Score: 12 023 11:14 AM MONUMENT INSTALLER documented as of this encounter Care Teams Core Maker Helper Relationship Specialty Start Date End Date Amish Weaver MD [address] [address] PCP - General FAMILY PRACTICE 08/15/19 documented as of this encounter
--- OUTSIDE RECORDS SUMMARY | 2025-04-04 00:21 | XMS_ITS | Clinical Summary ---
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 before breakfast Active escitalopram (LEXAPRO) 5 mg [...] (06/29/2020): Added automatically from request for surgery [id number] Mass of breast 11/21/2016 Overview (01/23/2017): Breast mass Encounters Date Type Department Care Team Description 02/12/2025 2:05 AM CDT - 02/12/2025 2:08 AM CDT Emergency [facility] Emergency Department [address] [place] [address] Discharge Disposition: Left without being seen from Last 3 Months Surgical History Surgery Date Site/Laterality Comments OTHER SURGICAL HISTORY 08/31/2018 - 08/30/2019 laproscopic-interstim removed CYSTOSCOPY 08/31/2018 - 08/30/2019 X 3 CYSTOSCOPY 08/31/2015 - 08/30/2016 with hydrodistension OTHER SURGICAL HISTORY 08/31/2016 - 08/30/2017 Interstim I,II Medical History Medical History Date Comments Fibromyalgia Hematuria Urinary incontinence Back pain Anxiety Depression Interstitial cystitis Pelvic floor dysfunction Family History Medical History Relation Name Comments Breast cancer Cousin Family history of malignant neoplasm of breast - (Added by TW Conv) Skin cancer Father Family history of skin cancer - (Added by TW Conv) Bladder Cancer Maternal Grandfather Famil y history of malignant neoplasm of urinary bladder - Relation: Grandfather (Added by TW Conv) Cervical cancer Mother Family histo ry of malignant neoplasm of cervix - (Added by TW Conv) Arthritis Other 1 Family history of arthritis; Mental illness Other 2 Family histor y of Mental illness; Other Other 3 Family history of rheumatoid arthritis - father, grandfather; Cancer Other 4 Family history of Cancer, unknown; Heart disease Other 5 Family history of Heart disease; Skin cancer Other 6 Family history of skin cancer - Relation: Grandmother (Added by TW Conv) Breast cancer Other 7 Family history of malignant neoplasm of breast - Relation: Aunt (Added by TW Conv) Brain cancer Other 8 Family history of malignant neoplasm of brain - Relation: Uncle (Added by TW Conv) Anesthesia problems Neg Hx Relation Name Status Comments Cousin Father Maternal Grandfather Mother Other 1 Other 2 Other 3 Other 4 Other 5 Other 6 Other 7 Other 8 Social History Tobacco Use Types Packs/Day Years [...] on file Legal Sex Female 12:15 PM MANAGER SUSTAINABILITY Gender Identity Not on file Sexual Orientation Not on file Obstetrics History Para Term AB IAB SAB Ectopic Multiple Livin g Live Births 2 2 Date Outcome GA Total Labor Labor/2nd/3rd Weight Sex Type Anes PTL Sandy A1 A5 Name Clin Para Para Last Filed Vital Signs Vital Sign Reading [...] 02/12/2025 12:04 AM CDT Plan of Treatment Health Maintenance Due Date Last Done Comments Cervical Cancer Screening 1997 Depression Screening 1997 Regular Well Visit/Exam 18-64 2015 DTaP/Tdap/Td Vaccine (7 - Td or Tdap) 01/27/2017 01/27/2007, 12/23/2001, 12/23/2001, Additional history exists Influenza Vaccine (#1) 2025 4, 06/15/2013, 06/16/2012, Additional history exists Hepatitis B Screening Completed 1997 , 1997, 1997 HPV Vaccines Completed 07/03/2008, 03/01, 11/30/2007 Hepatitis C Screening Completed 10/20/2016 Varicella Vaccines Completed 02/21/2019, 0 03/02/2001, 03/01/1998 Pneumococcal vaccine <65 Aged Out No longer eligible based on patient's age to complete this topic Procedures Procedure Name Priority Date/Time Associated Diagnosis Comments SERUM HEPATITIS C AB Routine 10/20/2016 3:37 PM MANAGER SUSTAINABILITY from Last 3 Months or Most Recently Relevant to Health Maintenance Results * Serum Hepatitis C ab (10/20/2016 3:37 PM MANAGER SUSTAINABILITY) HCV ab Negative Negative CDR HISTOR ICAL RESULTS Serum 10/20/2016 3:37 PM MANAGER SUSTAINABILITY us Ngoc Ac MD LAB BLOOD ORDERABLES Final Resul t CDR HISTORICAL RESULTS from Last 3 Months or Most Recently Relevant to Health Maintenance Insurance MEDICARE [facility] [place] [address] MEDICARE IDPA MEDICARE IDPA Care Teams Subcontract Administrator Relationship Specialty Start Date End Date Amish Weaver MD [address] [facility] [address] [place] [address] PCP - General Family Practice 08/25/19
--- OUTSIDE RECORDS SUMMARY | 2025-04-04 00:21 | XMS_ITS | Clinical Summary ---
Author Organization [facility] Address [address] [place] [address] Care Team Providers Care Financial Services Assistant Name Role Phone Amish Weaver MD Primary Care Provider [phone] Allergies No known active allergies Medications EPINEPHrine 0.3 MG/0.3ML injectionIndicat ions:Allergic reaction, initial encounter Inject 0.3 mLs (0.3 mg total) into the muscle as needed for Anaphylaxis . 2 each 3 07/20/2024 Active cetirizine (ZYRTEC) 10 MG tablet Take 1 tablet (10 mg total) by mouth daily. Active Famotidine (PEPCID OR) Active omalizumab (XOLAIR) 150 MG/ML injection (autoinjector) Inject into the skin every 28 days. Active Active Problems Patient Care Coordination No te Formatting of this note migh t be different from the original. PHYSICAL THERAPY PRECAUTIONS: I.C. 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 Immunizations Immunization Administration Dates Next Due Dtap (Generic) 12/23/2001, 8,1997,1997,11/1996 HPV4 (Gardasil) 07/03/2008,03/28/2008,11/30/2007 Hepatitis A (Generic) 04/28/2006,07/15/2005 Hepatitis B (Generic: Adult) 1997,02/24/19 97,1997 Hib (Generic) 05/29/1998,1997,1997 ,1997 Influenza Adult (Generic) 05/24/2014,,06/16/2012,05/22/2011,,06/12/2008,07/17/2006 MMR (Generic) 02/21/2019,03/02/2001,03/01/1998 Meningococcal (Menactra) 11/08/2013,03/28/2008 Polio Ipv (Generic) 12/23/2001,05/29/1998,1996,1997 Tdap (Generic) 01/27/2007 Family History Medical History Relation Comments Cancer Father Cancer Maternal Grandfather Heart Disease Maternal Grandmother Cancer Mother Hypertension Mother Cancer Paternal Grandfather Kidney Disease Paternal Grandfather Relation Status Comments Father Maternal Grandfather Maternal Grandmother Mother Paternal Grandfather Social History Tobacco Use Types Packs/Day Years Used Date Smoking Tobacco: Former Cigarettes 0.3 6 Passive Smoke Exposure: Never Smokeless Tobacco: Never Tobacco Cessation:Counseling Given: No Comments:benefits and risks involved explained to pt [...] Orientation Straight 12/08/2024 9: 42 AM CDT Last Filed Vital Signs Vital Sign Reading Time Taken Comments Blood Pressure 112/74 12/08/2024 9:42 AM CDT Pulse 85 12/08/2024 9:42 AM CDT Temperature 37 C (98.6 F) 12/08/2024 9:42 AM CDT Respiratory Rate 18 12/08/2024 9:42 AM CDT Oxygen Saturation 97% 12/08/2024 9:42 AM CDT Inhaled Oxygen Concentration - - Weight 79.5 kg (175 lb 4.8 oz) 12/08/2024 9:42 A M CDT Height 157.5 cm (5' 2) 12/08/2024 9:42 AM CDT Body Mass Index 32.06 12/08/2024 9:42 AM CDT Plan of Treatment Health Maintenance Due Date Last Done Comments Annual Physical 01/20/2000 Hepatitis C 2015 DTaP, Tdap and Td Vaccines (7 - Td or Tdap) 01/27/2017 01/27/2007, 12/23/2001, 05/29/1998, Additional history exists COVID-19 Vaccine ( season) 2024 Cervical Cancer Screening Pap Smear (Age 21 to 29) Every 3 Years 12/23/2025 12/23/2022, 12/23/2022 Cervical Cancer Screening 12/23/2025 Hepatitis B Vaccines Completed 1997, 1997, 1997 HPV Vaccines Completed 07/03/2008, 03/01, 11/30/2007 Meningococcal Vaccine Completed 11/08/2013, 008 PHQ-2 (Physician [place]) Completed 09/07/2024 Meningococcal B Vaccine Aged Out No l onger eligible based on patient's age to complete this topic Pneumococcal Vaccine: Pediatrics (0 to 5 Years) and At-Risk Patients (6 to 49 Years) Aged Out No longer eligible based on patient's age to complete this topic RSV Immunizations Under 20 Months Aged Out No longer eligible based on patient's age to complete this topic Procedures Procedure Name Priority Date/Time Associated Diagnosis Comments OUTSIDE CYTOPATH CERV/VAG IN TERPRET (PAP) (SCAN ORDER) Routine 12/23/2022 from Last 3 Months or Most Recently Relevant to Health Maintenance Results * PAP SMEAR (12/23/2022) 12/23/2022 us [facility] Scanned SCANNING Final Resu lt [facility] from Last 3 Months or Most Recently Relevant to Health Maintenance Insurance MEDICARE MEDICAID Advance Directives * Full Code (Latest Code Status on File) Date Activated Date Inactivated Comments 08/08/2017 4:43 PM 08/09/2017 7:04 PM Care Teams Financial Services Assistant Relationship Specialty Start Date End Date Amish Weaver MD [address] [facility] [address] [place], [place] [phone] PCP - General FAMILY PRACTICE 08/15/19
[2025-04-04] MEDS: LACTATED RINGERS 1,000 ML 30 ML IV CONT ×2 (06:30→08:13)
[2025-04-04] MEDS: ACETAMINOPHEN 500 MG TABLET 1000 MG PO (06:38)
[2025-04-04] MEDS: KETOROLAC 15 MG/ML VIAL (*BKC) IV PUSH (06:38)
--- NOTE | 2025-04-04 06:56 | P.PNAN_ITS ---
Anes - Initial Pre Proc Eval Procedure: Operation Date: 04/04/25 07:30 Proposed Procedures p Bilateral Laparoscopic Salpingectomy - Lavon Winter MD Date/Time: 04/04/25 06:56 Surgeon: Lavon Winter MD Pre Op Diagnosis: desires sterilization Patient Data Age: 30 Gender: F Height: 1.57 m Weight: 75 kg Last Vital Signs Temp 36.4 C 04/04/25 06:10 Pulse 77 04/04/25 06:10 Resp 14 04/04/25 06:10 BP 108/63 04/04/25 06:10 Pulse Ox 98 04/04/25 06:10 Allergies Allergy/AdvReac Type Severity Reaction Status Date / Time Quinolones AdvReac Unknown Other Verified 04/04/25 05:51 Home Medications ?Medication ?Instructions ?Recorded ?Confirmed ?Type No Home Medications 03/27/25 03/27/25 History Patient hx anesthesia problems: none Family hx anesthesia problems: none Results Review: All pre-operative results and documents have been reviewed as part of the pre- operative evaluation. [facility] Past Medical History Medical History SARS-CoV-2 positive August 2020 Other urethral stricture, female Interstitial cystitis Surgical History Surgical History History of bladder surgery Family History Family History Grandparent Congestive heart failure Acute rheumatic arthritis Father Acute rheumatic arthritis Mother Acute rheumatic arthritis Social History Social History Smoking packs per day: 0.5 Smoking cigarettes per day: 10.0 Years smoked: 15 Smoking pack-years: 7.50 Smoking status: Former smoker Tobacco type: cigarettes Smoking end date: 08/31/21 Alcohol intake: current Drinks per week: 3 Substance use: never Living arrangements: with family Gender identity (if verbalized by the patient): Female Spiritual care concerns: No Anes - Eval Final PreProcedure Day of Procedure 04/04/25 06:56 Patient weight: obese Heart: regular rate and rhythm Lungs: clear to auscultation Airway: Mallampati scale class II Neurological: alert and oriented Last oral intake: >/= 8 hours ASA classification: III Emergent: no Anesthetic plan: proceed Anesthesia type and monitoring: general ETT and standard monitoring Results Review: All pre-operative results and documents have been reviewed as part of the pre-operative evaluation. Informed Consent: The patient's anesthetic plan and its attendant risks and benefits were discussed with the patient/family/POA. Questions were solicited and answers provided to the satisfaction of the patient/family/POA.
[2025-04-04 07:06] LABS: BEDSIDEPREGUCG Negative (Negative)
--- NOTE | 2025-04-04 07:15 | WPDHPUPDATE1 ---
History and Physical Update Update Date/Time: 04/04/25 07:15 History and Physical has been reviewed, including an updated exam of the patient. There are NO changes in the patient's condition. Risks, benefits, and alternatives have been discussed and questions answered. Patient agrees to proceed with procedure.
--- NOTE | 2025-04-04 07:19 | P.HP_ITS ---
H&P: HPI History of Present Illness Date/Time: 04/04/25 07:19 Chief Complaint: Unwanted fertility Narrative: This patient is 30-year-old female with unwanted fertility. We agreed to perform laparoscopic bilateral salpingectomy. She understands risks, benefits, and alternatives. She has completed the informed consent process and is ready to proceed. The patient understands the details of the procedure. The procedure has been explained in detail. She understands the risks. She understands that injuries may occur that result in hospitalization, more surgery, and severe illness. She understands risk of hemorrhage and infection. She denies any chest pain or shortness of breath. She denies any nausea, vomiting, fever, chills. Review of Systems Review of Systems: All systems reviewed & are unremarkable except as noted in HPI and below Constitutional: Constitutional: Denies chills, Denies fatigue, Denies fever(s) and Denies weakness Eyes: Eyes: Denies blurry vision, Denies change in vision, Denies loss of pe ripheral vision, Denies loss of vision, Denies other visual disturbances and Denies eye pain ENT: Denies vertigo, Denies dizziness, Denies hearing loss, Denies mouth pain, Denies nasal obstruction, Denies neck mass and Denies neck pain Cardiovascular: Cardiovascular: Denies chest pain, Denies diaphoresis, Denies syncope, Denies leg edema and Denies dyspnea Respiratory: Respiratory: Denies chest congestion, Denies cough, Denies hemoptysis, Denies dyspnea and Denies wheezing Gastrointestinal: Gastrointestinal: Denies abdominal pain, Denies constipation, Denies diarrhea, Denies nausea and Denies vomiting Genitourinary: Genitourinary: Denies hematuria, Denies change in libido, Denies nocturia, Denies genital lesions, Denies flank pain and Denies urinary urgency Musculoskeletal: Musculoskeletal: Denies abnormal gait, Denies back pain, Denies myalgias, Denies arthralgias, Denies joint swelling, Denies muscle weakness and Denies neck pain Integumentary/Breasts: Skin/Breast: Denies swelling, Denies breast pain, Denies breast mass, Denies dry skin, Denies nipple discharge, Denies unusual bruising and Denies jaundice Neurologic: Denies Neuro-related abnormal movements, Denies Abnormal speech present, Denies abnormal gait, Denies behavioral changes, Denies confusion, Denies vertigo, Denies dizziness, Denies syncope, Denies loss of vision, Denies memory loss, Denies convulsions and Denies weakness Psychiatric: Psychiatric: Denies abnormal sleep pattern, Denies behavioral changes, Denies change in libido, Denies confusion, Denies depression, Denies anhedonia and Denies memory loss Endocrine: Endocrine: Reports no additional endocrine complaints, Denies change in libido and Denies fatigue Hematologic/Lymphatic: Hematologic/Lymphatic: Reports no additional hematologic/lymphatic complaints Allergic/Immunologic: Allergic/Immunologic: Reports no additional allergic/immunologic complaints and Denies wheezing PMFSH Past Medical History Medical History SARS-CoV-2 positive August 2020 Other urethral stricture, female Interstitial cystitis Surgical History Surgical History History of bladder surgery Family History Family History Grandparent Congestive heart failure Acute rheumatic arthritis Father Acute rheumatic arthritis Mother Acute rheumatic arthritis Social History Social History Smoking packs per day: 0.5 Smoking cigarettes per day: 10.0 Years smoked: 15 Smoking pack-years: 7.50 Smoking status: Former smoker Tobacco type: cigarettes Smoking end date: 08/31/21 Alcohol intake: current Drinks per week: 3 Substance use: never Living arrangements: with family Gender identity (if verbalized by the patient): Female Spiritual care concerns: No Meds Home Medications and Allergies Home Medications ?Medication ?Instructions ?Recorded ?Confirmed ?Type No Home Medications 03/27/25 03/27/25 History Allergies Allergy/AdvReac Type Severity Reaction Status Date / Time Quinolones AdvReac Unknown Other Verified 04/04/25 05:51 Vital Signs Vital Signs - 24 hr 04/04/25 06:10 Temperature 97.6 F Pulse Rate 77 Respiratory Rate 14 Blood Pressure 108/63 Pulse Oximetry 98 Exam Const: General: cooperative, healthy appearing, comfortable and no acute distress Orientation/consciousness: oriented to person, oriented to place and oriented to time HENMT: Head: normal to inspection Ears: external ears normal Face/Nose/Sinus: Normal external nose present and normal facial exam Face and sinus: normal facial exam Eyes: General: appearance normal, both eyes and all related structures Neck: Neck: normal visual inspection, trachea midline and supple Resp: Auscultation: clear to auscultation bilaterally, no crackles, no rales, no rhonchi and no wheezes Cardio: Rate: regular rate Rhythm: regular rhythm Heart sounds: no click, no murmurs and no rubs GI: GI Palp: No abdominal tenderness, No Soft to palpation, No Tenderness to palpation present (GI) and No Palpable mass present Auscultation: normal bowel sounds Skin: General skin exam: normal color and no rashes or lesions noted Neuro: General: oriented to person, oriented to place and oriented to time Extrem: General: normal to inspection, no joint enlargement, no clubbing, cyanosis or edema, no pedal edema and no calf tenderness Psych: Appearance: grossly normal Mental Status: mental status grossly normal Speech and movement: Normal speech and movement present Assessment and Plan Assessment and plan (1) Unwanted fertility: Code(s): Z30.09 - Encounter for other general counseling and advice on contraception Status: Acute Assessment and Plan: This patient is 30-year-old female with unwanted fertility. We agreed to perform laparoscopic bilateral salpingectomy. She understands risks, benefits, and alternatives. She has completed the informed consent process and is ready to proceed.
--- NOTE | 2025-04-04 07:53 | S_PTH ---
PATIENT: Filomena Catalan LOC: [facility] U#:[id number] AGE/SX: 30/F ROOM: RE04/04/[address]: Lavon Winter MD : 1995 BED: DIS: 04/04/2025 SPEC #: [id number] RECD: 04/04/25 09:45 STATUS: JOSHUA REQ #: [id number] APRIL: 04/04/25 07:[address]: Lavon Winter DEPT: [facility] Surgical RECD BY: Harshad Sullivan ENTERED: 04/04/25 09:46 SP TYPE: Surgical OTHR DR: Amish WeaverMD Tissues: A - Fallopian Tube Bilateral Procedures: Gross and Microscopic Level 2 Hematoxylin and Eosin Stain
[2025-04-04] MEDS: fentaNYL CITRATE INJ (*CRX) 100 MCG/2 ML VIAL 25 MCG IV PUSH ×8 (08:22→09:00)
--- NOTE | 2025-04-04 08:36 | P.OP_ITS ---
Procedure Note - Detailed Date of Procedure 04/04/25 Pre-op Diagnosis desires sterilization Post-op Diagnosis Same Procedure Performed Laparoscopic bilateral salpingectomy Surgeon Lavon Winter MD Anesthesia General Indications Unwanted fertility Findings Normal pelvic anatomy Description of Procedure The patient was taken the operating room. She was prepped and draped in the dorsal lithotomy position after induction of general anesthesia. A 5 mm skin incision was made in the left upper quadrant of the abdominal skin. A 5 mm trocar was inserted the intra-abdominal cavity under direct visualization of the scope. Pneumoperitoneum was achieved. A 5 mm trocar was inserted in the left lower quadrant identical fashion. A 5 mm infraumbilical trocar was inserted in identical fashion as well. The bilateral fallopian tubes were removed. This was done by using a LigaSure cautery. The mesosalpinx adjacent to the tube was cauterized transected with LigaSure. This was initiated in the area the ovary and in a stepwise fashion moved medially to the area of the cornu of the uterus. Once there the fallopian tube was cauterized and transected. This was done in identical fashion on each side. The fallopian tubes were taken out through the left lower quadrant trocar site. The pneumoperitoneum was reduced. The trocars removed. The skin was closed with subcuticular 4 Monocryl and covered with D ermabond. She was taken to cover stable condition. Sponge lap and needle counts were correct x2. Estimated Blood Loss 5 Drains No Packing No Pathology Yes Complications No immediate complications Condition Stable Disposition PACU
[2025-04-04] MEDS: oxyCODONE HCL (*CRX) 5 MG TAB IR PO (09:28)
== END 2025-04-04 09:43 | disposition home or self-care (01) ==
PROVIDERS: PCP Family Medicine; Visit Provider Obstetrics & Gynecology
PROC: (CPT 49320; principal; 2025-04-04 07:30)
DX: Z30.2 Encounter for sterilization (principal); G89.18 Other acute postprocedural pain; E66.9 Obesity, unspecified; Z68.30 Body mass index [BMI] 30.0-30.9, adult; Z98.890 Other specified postprocedural states; Z87.891 Personal history of nicotine dependence; Z82.49 Family history of ischemic heart disease and other diseases of the circulatory system
CPT/HCPCS: 58661; 88302; A9270; J0330; J1100; J1885; J2003; J2250; J2405; J2704; J3010; J7030; J7120; Q9968

== ENCOUNTER 2025-06-14 13:10 | Emergency (ER) | payer MEDICARE, MEDICAID, SELFPAY ==
[2025-06-14 13:21] VITALS: BP 138/65; PULSE 75; RESP 18; TEMP 36.3; O2SAT 99
--- NOTE | 2025-06-14 13:47 | ED.URI ---
HPI - URI/Sore Throat General Chief Complaint: Upper Respiratory Infection Stated Complaint: Flu Like Time Seen by Provider: 06/14/25 13:47 Source: patient Mode of arrival: ambulatory Limitations: no limitations History of Present Illness HPI Narrative: 30 yo F presents with c/o cough, chest congestion for 8 days. Fever for 4 days. hx of pneumonia. pain to R upper back. No CP or SOB. All systems reviewed and negative except as noted above. Related Data Allergies Allergy/AdvReac Type Severity Reaction Status Date / Time Quinolones AdvReac Unknown Other Verified 06/14/25 13:22 [facility] Past Medical History Medical History SARS-CoV-2 positive August 2020 Other urethral stricture, female Interstitial cystitis Surgical History Surgical History History of bladder surgery Family History Family History Grandparent Congestive heart failure Acute rheumatic arthritis Father Acute rheumatic arthritis Mother Acute rheumatic arthritis Social History Social History Smoking packs per day: 0.5 Smoking cigarettes per day: 10.0 Years smoked: 15 Smoking pack-years: 7.50 Smoking status: Former smoker Tobacco type: cigarettes Smoking end date: 08/31/21 Alcohol intake: current Drinks per week: 3 Substance use: never Living arrangements: with family Gender identity (if verbalized by the patient): Female Spiritual care concerns: No Comments At time of signature, agree with nursing past medical, surgical, social and family history. There is no relevant family history pertinent to the presenting complaint. Exam Narrative: GENERAL: This is a well-nourished, well-developed patient, in no apparent distress. HEAD: normocephalic, atraumatic. EYES: PERRL. Sclera clear/white. Vision is grossly intact. EARS: External ears normal, auditory canals clear and without drainage, TMs normal without perforation. Hearing grossly intact. NOSE: External nose normal with no obvious nasal discharge, nares without redness, no rhinorrhea. THROAT: Mucous membranes moist, posterior pharynx clear. NECK: Neck supple, non-tender without lymphadenopathy, masses or thyromegaly. CARDIOVASCULAR: Regular rate and rhythm without murmurs, gallops, or rubs. RESPIRATORY: Rales to right upper lung field. Breath sounds equal bilaterally. No wheezes or rhonchi. SKIN: warm, Dry, intact with no suspicious lesions or rash, good texture and turgor. NEURO: awake, alert, and oriented to person, place and time. There were no obvious focal neurologic abnormalities. EXTREMITIES: No joint tenderness, effusion, or edema noted. Course Course Level of Care: Express Care Visit Vital Signs Vital signs: Vital Signs Temperature 36.3 C L 06/14/25 13:21 Pulse Rate 75 06/14/25 13:21 Respiratory Rate 18 06/14/25 13:21 Blood Pressure 138/65 06/14/25 13:21 Pulse Oximetry 99 06/14/25 13:21 Oxygen Delivery Room Air 06/14/25 13:21 Temperature 36.3 C L 06/14/25 13:21 Pulse Rate 75 06/14/25 13:21 Respiratory Rate 18 06/14/25 13:21 Blood Pressure 138/65 06/14/25 13:21 Pulse Oximetry 99 06/14/25 13:21 Oxygen Delivery Room Air 06/14/25 13:21 Reviewed MDM - URI/Sore Throat MDM Narrative Medical decision making narrative: cough for 8 days, fever x4 days. Reassess to right upper lung field. Will treat with antibiotic for pneumonia. Did offer patient chest x-ray but she declined. patient is well-appearing, nontoxic. Differential Diagnosis Differential diagnosis: Likely upper respiratory infection, viral infection, bronchitis and other ( Pneumonia) Discharge Plan Discharge Clinical Impression: Pneumonia Patient Disposition: Home Condition: Stable Instructions: Antibiotic Form, Pneumonia (ED) Additional Instructions: Take antibiotic as prescribed until gone. Drink at least 64 oz of water a day. Follow-up with your primary care physician if symptoms are not improving. If you have chest pain or difficulty breathing go to the ER. Patient Language: Japanese Prescriptions: New doxycycline hyclate 100 mg capsule 100 mg PO BID 7 Days Qty: 14 0RF Follow-up/Referrals: Meg,Amish Rios MD [Primary Care Provider] Time of Disposition: 13:54
--- OUTSIDE RECORDS SUMMARY | 2025-06-14 15:05 | XMS_ITS | Data Portability ---
Author Organization [facility] Address [address] [place] [address] Care Team Providers Care Customs And Border Protection Inspector Name Role Phone NANCIE RAFA Primary Care Provider Assessment Encounter Date Assessment Date Assessment LastModified by Organization Details LastModified Time 12/23/2022 12/23/2022 Annual gynecological exam performed. Patient will come back in a year unless there are new symptoms. [email or web address] Not available 12/23/2022 16:16:50 01/31/2025 01/31/2025 Annual gynecological exam performed. Patient will come back in a year unless there are new symptoms. [email or web address] Not available 01/31/2025 11:14:51 Plan of Treatment Reminders Order Date Submit Date Provider Last Modified By Organization Details Last Modified Time Details Appointments None recorded. Lab hbcab (hepatitis B core Ab) igm, serum 2024 025 [facility] (Lab), [address], [place], [address], 18:44:46 HBsAg (hepatitis B surface Ag), serum 2024 025 [facility] (Lab), [address] [place], [address], 5 18:44:45 hepatitis C virus Ab, serum 2024 025 [facility] (Lab), [address] [place], [address], 5 18:44:46 HIV 1+2 AB + HIV 1 p24 Ag, qualitative immunoassay , serum 2024 025 [facility] (Lab), [address], [place], [address], 5 18:44:45 RPR (rapid plasma reagin), serum 2024 025 [facility] (Lab), [address], [place], [address], 5 18:44:46 pap, IG + reflex HPV if ASC-U - if positive HPV run subtyping 16,18/45 add gc/ct/trich 2024 025 [facility] (Lab), [address], [place], [address], 5 08:17:04 Referral None recorded. Procedures None recorded. Surgeries salpingecto my, laparoscopi c (SURG) 2024 025 [facility], [facility] [address], [address], 5 11:06:29 Imaging US, breast, unilateral [address] [facility] [place], [address] [place] [address], [address], 5 04:02:11 Medication Orders None recorded. Patient TargetsNo targets recorded. Patient InstructionsNo instructions recorded. Reason for Referral None Reported. Results Created Date Observation Date Name Description Value Unit Range Abnormal Flag Note LastModifiedBy Organization Detail LastModifiedTime 12/24/19 23 12/23/2022 IMAGE GUIDE D PAP, REFLE X HPV IF ASCUS ONLY image guided Pap, reflex HPV ASCUS only SEE RESULT S BELOW CASE REPOR T: Cytol ogy Gynec ologi mei Repor t Case: [id number] Autho minoo ybarra Provi rosales: Martin Mary Colle cted: 12/23 1713 LAYOUT OPERATOR Order ing Locat ion: [place] Path[facility] [place] Recei bethany: 12/24 0341 First Scree n: Clare Mehta, CT Speci men: Scree kellie Pap - Image d, Cervi x STATE MENT OF ADEQU ACY: Satis facto ry for evalu ation Trans forma tion zone compo nent prese nt FINAL DIAGN OSIS: Negat bailee for Intra epith elial Lesio n or Saima mueller (NIL) . Elect chucky denson corey d by Clare Mehta, CT on 2022 at 1:19 PM ----- ----- ----- ----- ----- ----- ----- ----- ----- ----- ----- ----- ----- ----- ----- ----- ----- ---- COMME NT: This speci men was revie wed by a Cytot echno logis t and/o r Patho logis t (as indic ated in this repor t) after evalu ation using the Thinp rep Imagi ng Syste m. CLINI MEI INFOR MATIO N: Menst rual Statu s: LMP (if appli cable ): Clini mei Histo ry/Pr eviou s Pap: Type of Neopl shabana (if appli cable ): Signi fican t Clini mei Findi ngs: Other Histo ry: Hormo triston (if appli cable ): PAP EDUCA JANETT L NOTE: The Pap Test is a scree kellie test with an inher ent false negat bailee rate. Liqui d-bas ed sampl ing may decre ase, but will not elimi adalid, false negat bailee resul ts. A negat bailee resul t does not precl ude the prese nce and/o r devel opmen t of disea se, since the prese nce of abnor mal cells in the sampl e depen ds on the locat ion of the lesio n and sampl ing techn ique. Anitra nued regul ar scree kellie is the best metho d of cance r preve ntion . If repor angela cytol ogic findi ng do not corre late with physi mei and/o r histo rical findi ngs, furth er inves tigat ion is recom art d, as clini mike north nted. Not Available [facility] (Lab) [address], [place], [address], 12/26/2022 14:21:13 02/01/20 25 01/31/2025 HEPAT ITIS B SURFA CE ANTIG EN hepatitis B surface antigen Non-re active non-re active This assay was perfo rmed using [employer] ratio n reage nts and test kits. Value s obtai hawa with other assay metho ds or kits canno t be used inter keating eably . : Routi ne : ENDOC ERVIC AL/CE RVICA L : add gc/ct /tric h Not Available [facility] (Lab) [address], [place], [address], 02/01/2025 18:44:45 02/01/20 25 01/31/2025 HIV 1/2 ANTIG EN/AN TIBOD Y, REFLE X CONFI RMATI ON HIV antigen/anti body Nonrea ctive nonrea ctive : Routi ne : ENDOC ERVIC AL/CE RVICA L : add gc/ct /tric h HIV-1 antig en and HIV-1 /HIV- 2 antib odies were not detec angela. No labor atory evide nce of HIV infec tion. Not Available [facility] (Lab) [address], [place], [address], 02/01/2025 18:44:45 02/01/20 25 01/31/2025 HEPAT ITIS C ANTIB PADMA SCREE N, REFLE X TO CONFI RMATI ON hepatitis C antibody Non-re active non-re active Antib odies to HCV Not Detec angela, does not exclu de the possi bilit y of expos ure to HCV. : Routi ne : ENDOC ERVIC AL/CE RVICA L : add gc/ct /tric h Not Available [facility] (Lab) [address], [place], [address], 02/01/2025 18:44:46 02/01/20 25 01/31/2025 RPR SCREE N, REFLE X TITER /CONF IRMAT ION RPR qualitative Nonrea ctive nonrea ctive : Routi ne : ENDOC ERVIC AL/CE RVICA L : add gc/ct /tric h Not Available [facility] (Lab) [address], [place], [address], 02/01/2025 18:44:46 02/01/20 25 01/31/2025 HEPAT ITIS B CORE, IGM hepatitis B core IgM antibody Non-re active non-re active Antib odies to Hepat itis B Core IgM not detec angela. Does not exclu de the possi bilit y of expos ure to or infec tion with HBV. Corre late with other Hepat itis B serol ogies . : Routi ne : ENDOC ERVIC AL/CE RVICA L : add gc/ct /tric h Not Available [facility] (Lab) [address], [place], [address], 02/01/2025 18:44:46 02/01/20 25 01/31/2025 IMAGE GUIDE D PAP, REFLE X HPV IF ASCUS ONLY image guided Pap, reflex HPV ASCUS only SEE RESULT S BELOW CASE REPOR T: Cytol ogy Gynec ologi mei Repor t Case: [id number] Autho minoo ybarra Provi rosales: Ruby Jolley, LAYOUT OPERATOR Colle cted: 01/31 1110 Order ing Locat ion: [place] Patho logy Recei bethany: 02/01 0938 First Scree n: Clare Mehta ay, CT Speci men: Scree kellie Pap - Image d, Cervi x STATE MENT OF ADEQU ACY: Satis facto ry for evalu ation Trans forma tion zone compo nent prese nt ----- ----- ----- ----- ----- ----- ----- ----- ----- ----- ----- ----- ----- ----- ----- ----- ----- ---- FINAL DIAGN OSIS: Negat bailee for Intra epith elial Lesio n or Saima mueller (NIL) . Elect chucky nicole d by Clare Mehta ay, CT on 025 at 0711 CDT ----- ----- ----- ----- ----- ----- ----- ----- ----- ----- ----- ----- ----- ----- ----- ----- ----- ---- COMME NT: This speci men was revie wed by a Cytot echno logis t and/o r Patho logis t (as indic ated in this repor t) after evalu ation using the Thinp rep Imagi ng Syste m. CLINI MEI INFOR MATIO N: Menst rual Statu s: LMP (if appli cable ): Clini mei Histo ry/Pr eviou s Pap: Type of Neopl shabana (if appli cable ): Signi fican t Clini mei Findi ngs: Other Histo ry: Hormo triston (if appli cable ): PAP EDUCA JANETT L NOTE: The Pap Test is a scree kellie test with an inher ent false negat bailee rate. Liqui d-bas ed sampl ing may decre ase, but will not elimi adalid, false negat bailee resul ts. A negat bailee resul t does not precl ude the prese nce and/o r devel opmen t of disea se, since the prese nce of abnor mal cells in the sampl e depen ds on the locat ion of the lesio n and sampl ing techn ique. Anitra nued regul ar scree kellie is the best metho d of cance r preve ntion . If repor angela cytol ogic findi ng do not corre late with physi mei and/o r histo rical findi ngs, tu diaz inves tigat ion is recom art d, as annai mike north nted. Not Available [facility] (Lab) [address], [place], [address], 02/02/2025 08:17:04 02/01/20 25 01/31/2025 CT/GC AND TRICH OMONA S VAGIN ISAC (RRNA ), THINP REP VIAL CT/GC and trichomonas vaginalis (rrna), thinprep SEE RESULT S BELOW negati ve CHLAM YDIA TRACH OMATI S, PCR: Negat bailee NEISS ERIA GONOR RHOEA E, PCR: Negat bailee TRICH OMONA S VAGIN ISAC RIBOS OMAL RNA (RRNA ): Negat bailee Not Available [facility] (Lab) [address], [place], [address], 02/02/2025 08:17:05 Result Notes None recorded. Problems Name Problem SNOMED Code Status Onset Date Resolution Date Notes Provider Name and Address Organization Details Recorded Time Chronic intersti tial cystitis Active on disabili ty for this. did well last pregnanc y without flares. Luz Maria Brodymandi hl null, [facility] 2 14:31:25 Mixed anxiety and depressi ve disorder [id number] Active no meds for years, stable Luz Maria Brodysandytie hl null, [facility] 2 14:31:25 Ex-smoke r [id number] Active quit when found out Luz Maria Brodymandi hl null, [facility] 2 14:31:25 Chronic intersti tial cystitis Completed on disabili ty for this. did well last pregnanc y without flares. Luz Maria Brodysandytie hl null, [facility] 2 14:31:25 Mixed anxiety and depressi ve disorder [id number] Completed no meds for years, stable Luz Maria Brodysandytie hl null, [facility] 2 14:31:25 Ex-smoke r [id number] Completed quit when found out Luz Maria Pedroza hl null, [facility] 2 14:31:25 Pain in pelvis [id number] Completed pelvic girdle pain per Pt. Luz Maria Pedroza hl null, [facility] 2 14:31:25 Kidney stone [id number] Completed Luz Maria Pedroza hl null, [facility] 2 14:31:25 Chronic intersti tial cystitis [id number] Completed 201710/15/2021 Intersti tial cystitis (chronic ) with hematuri a;Record ed Elsewher e: No Locat ion: [facility] S ource: E[employer] Worker concha: Ankit Ennis ce ID: 0001 Victor M lable Time: 10:30:00 AM Krupa Suarez [facility], [facility] 2 16:26:57 Deep pain on intercou rse [id number] Completed 201710/15/2021 Deep dyspareu yaz;Reji rded Elsewher e: No Locat ion: [facility] S ource: EHR [employer] Worker concha: Ankit Ennis ce ID: 0001 Victor M lable Time: 10:30:00 AM Krupa Suarez [facility], [facility] 2 16:27:13 Vulvodyn ia [id number] Completed 201710/15/2021 Vulvodyn ia;Recor ded Elsewher e: No Locat ion: [facility] S ource: EHR [employer] Worker concha: N Shirati ce ID: 0001 Victor M lable Time: 10:30:00 AM Krupa Suarez [facility], [facility] 2 16:27:02 Pelvic and perineal pain [id number] Completed 201710/15/2021 Pelvic pain;Rec orded Elsewher e: No Locat ion: [facility] S ource: [employer] Worker concha: N Practi ce ID: 0001 Victor M lable Time: 02:00:00 PM Krupa schwarz [facility] 2 16:27:22 Pregnanc y test negative [id number] Completed 201710/15/2021 Encounte r for pregnanc y test, result negative ;Recorde d Elsewher e: No Locat ion: [facility] S ource: [employer] Worker concha: N Practi ce ID: 0001 Victor M lable Time: 01:30:00 PM Krupa schwarz [facility] 2 16:27:16 Abnormal uterine bleeding [id number] 100 Completed 201710/15/2021 Dysfunct ional uterine bleeding ;Recorde d Elsewher e: No Locat ion: [facility] S ource: [facility] [employer] Worker concha: N Practi ce ID: 0001 Victor M lable Time: 01:30:00 PM Krupa schwarz [facility] 2 16:27:36 Disorder of breast [id number] Completed 201710/15/2021 Disorder of breast, unspecif ied;Reji rded Elsewher e: No Locat ion: [facility] S ource: [employer] Worker concha: N Practi ce ID: 0001 Victor M lable Time: 11:15:00 AM Krupa schwarz [facility] 2 16:27:47 Finding of sensatio n of breast Completed 201710/15/2021 Mastodyn ia;Pract ice ID: 0001 Krupa schwarz [facility] 2 16:27:00 Abdomina l pain [id number] Completed 201710/15/2021 Abdomina l pain;Rec orded Elsewher e: No Locat ion: [facility] S ource: EHR [employer] Worker concha: N Practi ce ID: 0001 Victor M lable Time: 03:19:00 PM Krupa schwarz [facility] 2 16:26:58 Pregnanc y detectio n examinat ion Completed 201710/15/2021 Encounte r for pregnanc y test, result positive ;Recorde d Elsewher e: No Locat ion: [facility] S ource: E[employer] Worker concha: N Practi ce ID: 0001 Victor M lable Time: 03:19:00 PM Krupa schwarz, [facility] 2 16:27:45 Finding of contents of cervix [id number] Completed 201710/15/2021 Weeks of gestatio n of pregnanc y not specifie d;Record ed Elsewher e: No Locat ion: [facility] S ource: EHR [employer] Worker concha: N Practi ce ID: 0001 Victor M lable Time: 10:15:00 AM Krupa schwarz, [facility] 2 16:27:15 Finding of trunk structur e Completed 201710/15/2021 Oth diseases and conditio ns compl preg/chl dbrth;Pr actice ID: 0001 Krupa schwarz, [facility] 2 16:27:08 Gestatio n less than 9 weeks [id number] Completed 201710/15/2021 Less than 8 weeks gestatio n of pregnanc y;Practi ce ID: 0001 Krupa schwarz, [facility] 2 16:27:[address] Concept Completed 201710/15/2021 Encntr for verifier operator exam (general ) (routine ) w/o abn findings ;Practic e ID: 0001 Krupa schwarz, [facility] 2 16:27:26 Pregnanc y, childbir th and puerperi um finding Completed 201710/15/2021 Encounte r for supervis ion of normal 1st pregnanc y;Record ed Elsewher e: No Locat ion: [facility] ource: EHR [employer] Worker concha: N Practi ce ID: 0001 Victor M lable Time: 03:15:00 PM Krupa schwarz, [facility] 2 16:27:28 Rubella screenin g status [id number] Completed 201710/15/2021 Encounte r for antenata l screenin g, unspecif ied;Reji rded Elsewher e: No Locat ion: [facility] S ource: EHR [employer] Worker concha: N Practi ce ID: 0001 Victor M lable Time: 03:15:00 PM Krupa schwarz, [facility] 2 16:27:12 Antenata l screenin g Completed 201710/15/2021 Encounte r for antenata l screenin g for nuchal transluc ency;Pra ctice ID: 0001 Krupa schwarz, [facility] 2 16:27:10 Normal pregnanc y in multigra chapis [id number] Completed 201710/15/2021 Encounte r for suprvsn of normal pregnanc y, first trimeste r;Practi ce ID: 0001 Krupa schwarz, [facility] 2 16:27:38 Pregnanc y, childbir th and puerperi um finding Completed 201810/15/2021 Encntr for suprvsn of normal first preg, second trimeste r;Practi ce ID: 0001 Krupa Jones Millsalix schwarz, [facility] 2 16:27:29 Antenata l screenin g for malforma tion Completed 201810/15/2021 Encounte r for antenata l screenin g for malforma tions;Pr actice ID: 0001 Krupa schwarz, [facility] 2 16:27:43 Pregnanc y, childbir th and puerperi um finding Completed 201810/15/2021 Oth pregnanc y related conditio ns, second trimeste r;Practi ce ID: 0001 Krupa schwarz, [facility] 2 16:27:05 Pain Completed 201810/15/2021 Lower abdomina l pain, unspecif ied;Prac nataliia ID: 0001 Krupa schwarz, [facility] 2 16:27:19 Gestatio n period, 25 weeks [id number] Completed 201810/15/2021 25 weeks gestatio n of pregnanc y;Practi ce ID: 0001 Krupa Suarez [facility], [facility] 2 16:27:44 Migraine [id number] Completed 201810/15/2021 Migraine , unsp, not intracta ble, without status migraino smith;Prac nataliia ID: 0001 Krupa schwarz, [facility] 2 16:27:33 Gestatio n period, 27 weeks [id number] Completed 201810/15/2021 27 weeks gestatio n of pregnanc y;Practi ce ID: 0001 Krupa Suarez [facility], [facility] 2 16:27:39 Clinical finding Completed 201810/15/2021 Edema;Re corded Elsewher e: No Locat ion: [facility] S ource: EHR [employer] Worker concha: N Practi ce ID: 0001 Victor M lable Time: 01:00:00 PM Krupa schwarz, [facility] 2 16:27:20 Gestatio n period, 30 weeks [id number] Completed 201810/15/2021 30 weeks gestatio n of pregnanc y;Practi ce ID: 0001 Krupa Jones [place] chong, [facility] 2 16:27:41 Uterine size for dates discrepa ncy Completed 201810/15/2021 Uterine size-maggie e discrepa ncy, third trimeste r;Record ed Elsewher e: No Locat ion: [place] [facility] S ource: EHR [employer] Worker concha: N Practi ce ID: 0001 Victor M lable Time: 09:30:00 AM Krupa Erick chong, [facility] 2 16:27:03 Gestatio n period, 32 weeks [id number] Completed 201810/15/2021 32 weeks gestatio n of pregnanc y;Practi ce ID: 0001 Krupa Erick schwarz, [facility] 2 16:27:46 Gestatio n period, 36 weeks [id number] Completed 201810/15/2021 36 weeks gestatio n of pregnanc y;Record ed Elsewher e: No Locat ion: [place] [facility] S ource: E[employer] Worker concha: N Practi ce ID: 0001 Victor M lable Time: 11:00:00 AM Krupa Jones [place] chong, [facility] 2 16:27:40 Pregnanc y, childbir th and puerperi um finding Completed 201810/15/2021 Encntr for suprvsn of normal first preg, third trimeste r;Record ed Elsewher e: No Locat ion: [place] [facility] S ource: E[employer] Worker concha: N Practi ce ID: 0001 Victor M lable Time: 11:15:00 AM Krupa Erick schwarz, [facility] 2 16:27:30 Lacerati on of female perineum Completed 201810/15/2021 Second degree perineal lacerati on during delivery ;Practic e ID: 0001 Krupa schwarz, [facility] 2 16:27:07 Single live from singleto n pregnanc y [id number] Completed 201810/14/2021 Single live ;Pr actice ID: 0001 Krupa schwarz, [facility] 2 12:01:14 Gestatio n period, 39 weeks [id number] Completed 201810/15/2021 39 weeks gestatio n of pregnanc y;Practi ce ID: 0001 Krupa schwarz, [facility] 2 16:27:49 Lochia finding Completed 201810/15/2021 Encounte r for routine postpart um follow-u p;Record ed Elsewher e: No Locat ion: [place] [facility] S ource: [employer] Worker concha: N Shirati ce ID: 0001 Victor M lable Time: 09:30:00 [facility] 16:27:32 Uses combined oral contrace ption [id number] Completed 201810/15/2021 Encounte r for initial prescrip tion of contrace ptive pills;Re corded Elsewher e: No Locat ion: [place] [facility] S ource: E[employer] Worker concha: N Shirati ce ID: 0001 Victor M lable Time: 09:30:00 AM Krupa schwarz [facility] 2 16:27:[address] Concept Completed 201810/15/2021 Encntr for general adult medical exam w/o abnormal findings ;Recorde d Elsewher e: No [facility] ource: EHR [employer] Worker concha: N Practi ce ID: 0001 Victor M lable Time: 08:45:00 AM Krupa Suarez [facility] 2 16:27:25 Screenin g for malignan t neoplasm of cervix Completed 201810/15/2021 Encounte r for screenin g for malignan t neoplasm of cervix;R ecorded Elsewher e: No Locat ion: [facility] ource: [employer] Worker concha: Ankit Ennis ce ID: 0001 Victor M lable Time: 08:45:00 AM Krupa schwarz, [facility] 2 16:26:55 Breast lump [id number] Completed 201910/15/2021 Mass in breast;R ecorded Elsewher e: No Locat ion: [facility] ource: [employer] Worker concha: N Raymon ce ID: 0001 Victor M lable Time: 10:30:00 AM Krupa schwarz, [facility] 2 16:27:50 Pregnanc y [id number] Completed 202105/30/2022 Luz Maria kennedy null, [facility] 2 14:31:30 COVID-19 [id number] Completed 2021 baby asa serial growth Luz Maria Kasia kennedy null, [facility] 2 14:31:25 Low-lyin g placenta 862580679 Completed 2021 RESOLVED Luz Maria kennedy null, [facility] 2 14:31:25 Abnormal ity of heart [id number] Completed 2021 Fluid around heart. [facility] 04/23. - Level II u/s WNL - just routine care Luz Maria kennedy null, [facility] 2 14:31:25 Problem Notes None recorded. Procedures Surgical History Date Name Laterality Status Provider Name and Address Organization Details Recorded Time 025 SALPINGECTOMY, LAPAROSCOPIC (SURG) completed [place] Gastelum [facility] 05/30/2025 11:51:45 025 Date of Last Pap Smear completed Noelle Boyd [facility] 02/28/2025 12:08:23 019 nerve block completed [facility] 04/23/2022 10:30:59 018 Dilation of urethra completed [facility] 05/13/2022 15:24:53 017 Dilation of urethra completed [facility] 05/13/2022 15:24:50 016 Dilation of urethra completed [facility] 05/13/2022 15:24:46 016 Dilation of urethra completed [facility] 05/13/2022 15:25:14 015 laparoscopy completed [facility] 04/23/2022 10:30:50 015 Dilation of urethra completed [facility] 05/13/2022 15:24:43 015 Dilation of urethra completed [facility] 05/13/2022 15:25:11 014 Cystourethroscopy completed [facility] 04/23/2022 10:32:23 014 dilation of urethra completed [facility] 04/23/2022 10:32:30 Imaging Results None recorded. Procedure Notes None recorded. Medical Equipment None Reported. Allergies No known drug allergies Medications Name Sig Start Date Stop Date Status Note LastModified by Organization Details LastModified Time cyclobenz aprine 10 mg tablet 10/15 completed Not Available Not Available Not Available amoxicill in 500 mg capsule 04/02 completed Not Available Not Available Not Available dicloxaci llin 500 mg capsule 04/02 completed Not Available Not Available Not Available butalbita l-acetami nophen-ca ffeine 50 mg-325 mg-40 mg capsule take 1 - 2 capsule by oral route every 4 hours as needed not to exceed 6 capsules per 24hrs 03/22 completed Prescrib ed Elsewher e: No Locat ion: [facility] [facility] M odify By: [email or web address] Encount er DateTime : 11/30/19 03:45:00 PM Not Available Not Available Not Available tizanidin e 2 mg tablet 10/15 completed Not Available Not Available Not Available azithromy rebecca 250 mg tablet 10/15 completed Not Available Not Available Not Available hydrocodo ne 5 mg-acetam inophen 325 mg tablet TAKE 1 TABLET BY MOUTH EVERY 4 HOURS NEEDED FOR PAIN 04/21 completed Not Available Not Available Not Available ondansetr on HCl 8 mg tablet 10/15 completed Not Available Not Available Not Available metronida zole 0.75 % (37.5 mg/5 gram) vaginal gel INSERT ONE APPLICAT ORFUL VAGINALL Y AT BEDTIME FOR 5 NIGHTS 10/15 completed Not Available Not Available Not Available prednison e 20 mg tablet 04/02 completed Not Available Not Available Not Available olanzapin e 5 mg tablet 04/02 completed Not Available Not Available Not Available metronida zole 500 mg tablet TAKE 1 TABLET BY MOUTH EVERY 12 HOURS FOR 7 DAYS 11/26 completed Not Available Not Available Not Available sulfameth oxazole 800 mg-trimet hoprim 160 mg tablet TAKE 1 TABLET BY MOUTH TWICE A DAY FOR 10 DAYS 01/31 completed Not Available Not Available Not Available hydrocodo ne 10 mg-acetam inophen 325 mg tablet 04/02 completed Not Available Not Available Not Available tramadol 50 mg tablet take 1-2 tablet by oral route every 6 hours as needed for pain 04/02 completed Not Available Not Available Not Available nystatin- triamcino lone 100,000 unit/gram -0.1 % topical ointment apply by topical route 2 times every day to the affected area(s) 03/22 completed Prescrib ed Elsewher e: No [facility] By: Encount er DateTime : 02/10/20 09:00:00 AM Not Available Not Available Not Available famotidin e 20 mg tablet TAKE 1 TABLET BY MOUTH TWICE A DAY FOR 5 DAYS 01/31 completed Not Available Not Available Not Available lorazepam 0.5 mg tablet 04/02 completed Not Available Not Available Not Available diazepam 2 mg tablet 10/15 completed Not Available Not Available Not Available doxycycli ne monohydra te 100 mg capsule 04/02 completed Not Available Not Available Not Available cephalexi n 500 mg capsule TAKE 1 CAPSULE EVERY 8 HOURS FOR 7 DAYS 12/25 completed Not Available Not Available Not Available prednison e 50 mg tablet TAKE 1 TABLET BY MOUTH EVERY DAY 01/31 completed Not Available Not Available Not Available Valtrex 1 gram tablet take 1 tablet by oral route every 8 hours 03/22 completed Prescrib ed Elsewher e: No Locat ion: [facility] odify By: [email or web address] Encount er DateTime : 12/24/19 04:13:05 PM Not Available Not Available Not Available Banophen 25 mg capsule TAKE 1 CAPSULE (25 MG TOTAL) BY MOUTH EVERY 6 (SIX) HOURS FOR 3 DAYS 01/31 completed Not Available Not Available Not Available epinephri ne 0.3 mg/0.3 mL injection , auto-inje ctor INJECT 0.3 ML (0.3MG TOTAL) INTO THE MUSCLE NEEDED FOR ANAPHYLA XIS 01/31 completed Not Available Not Available Not Available ibuprofen 600 mg tablet TAKE 1 TABLET BY MOUTH EVERY 6 HOURS NEEDED FOR CRAMPING 12/23 completed Not Available Not Available Not Available levofloxa rebecca 500 mg tablet 04/02 completed Not Available Not Available Not Available methylpre dnisolone 4 mg tablets in a dose pack TAKE 6 TABLETS ON DAY 1 DIRECTED ON PACKAGE AND DECREASE BY 1 TAB EACH DAY FOR A TOTAL OF 6 DAYS 12/23 completed Not Available Not Available Not Available amoxicill in 875 mg-potass ium clavulana te 125 mg tablet TAKE 1 TABLET BY MOUTH 2 TIMES DAILY FOR 7 DAYS. 12/23 completed Not Available Not Available Not Available Ventolin HFA 90 mcg/actua tion aerosol inhaler INL 2 PFS ITL Q 4 H PRF WHZ 10/15 completed Not Available Not Available Not Available oxycodone 5 mg tablet TAKE 1 TABLET BY MOUTH EVERY 4 HOURS 04/23 completed Not Available Not Available Not Available Dolly 0.35 mg tablet Take 1 tablet every day by oral route. 10/14 completed Not Available Not Available Not Available Premarin 0.625 mg/gram vaginal cream insert (1G) by vaginal route every day cyclical ly, 3 weeks on and 1 week off 12/14 completed Prescrib ed Elsewher e: Yes [facility] By: isadora parrish DateTime : 10/28/19 18 02:00:00 PM Not Available Not Available Not Available escitalop wei 5 mg tablet TAKE 1 TABLET (5 MG TOTAL) BY MOUTH DAILY. 01/31 completed Not Available Not Available Not Available nitrofura ntoin monohydra te/macroc rystals 100 mg capsule Take 1 capsule every 12 hours by oral route. 04/23 completed Not Available Not Available Not Available 01/31 completed Not Available Not Available Not Available Vitamin 04/02 completed Not Available Not Available Not Available ZHOU (28) 3 mg-0.02 mg tablet take 1 tablet by oral route every day 08/13 completed Prescrib ed Elsewher e: No Locat ion: [facility] odify By: apoorva harris DateTime : 01/29/20 18 01:30:00 PM Not Available Not Available Not Available 28 mg-800 mcg tablet 10/14 completed Prescrib ed Elsewher e: Yes Loca tion: [facility] odify By: apoorva harris DateTime : 08/13/20 18 03:15:00 PM Not Available Not Available Not Available Vitals Date Recorded Body height Body mass index (BMI) Body weight Systolic And Diastolic Provider Name and Address Organization Details Last Updated DateTime 12/23/2022 157.48 cm 23.4 kg/m2 87171.82 g 100/55 mm[Hg] [facility] 12/23/2022 16:17:05 Date Recorded Body height Body mass index (BMI) Body weight Systolic And Diastolic Provider Name and Address Organization Details Last Updated DateTime 01/31/2025 157.48 cm 30.5 kg/m2 53643.93 g 115/82 mm[Hg] Princess Lucia [facility] 01/31/2025 11:15:47 Date Recorded Body height Body mass index (BMI) Body weight Systolic And Diastolic Provider Name and Address Organization Details Last Updated DateTime 02/28/2025 157.48 cm 30.4 kg/m2 63683.33 g 108/73 mm[Hg] [facility] 02/28/2025 12:08:05 Date Recorded Body height Body mass index (BMI) Body weight Systolic And Diastolic Provider Name and Address Organization Details Last Updated DateTime 04/21/2025 157.48 cm 31.1 kg/m2 05024.7 g 117/76 mm[Hg] [facility] 04/21/2025 16:42:29 Social History Question Answer Notes LastModified by Organizat ion Details LastModified Time Tobacco Smoking Status Former Smoker Nancie schwarz [facility] 12/12/2019 12:03:40 If You Are , What Was Your Level Of Alcohol Consumption Prior To ? Occasional [email or web address] Information not available 04/04/2022 Are You Blind Or Do You Have Difficulty Seeing? No [email or web address] Information not available 04/04/2022 What Is Your Level Of Caffeine Consumption? Occasional [email or web address] Information not available 04/04/2022 In The 14 Days Before Symptom Onset, Have You Had Close Contact With A Laboratory-confir med COVID-19 While That Case Was Ill? No [email or web address] Information not available 04/04/2022 In The 14 Days Before Symptom Onset, Have You Had Close Contact With A Person Who Is Under Investigation For COVID-19 While That Person Was Ill? No [email or web address] Information not available 04/04/2022 Have You Been To An Area Known To Be High Risk For COVID-19? No [email or web address] Information not available 04/04/2022 Are You Deaf Or Do You Have Serious Difficulty Hearing? No [email or web address] Information not available 04/04/2022 What Type Of Diet Are You Following? REGULAR Information not available 04/04/2022 Do You Use Your Seat Belt Or Car Seat Routinely? Yes [email or web address] Information not available 04/04/2022 Do You Have Smoke And Carbon Monoxide Detectors In Your Home? Yes [email or web address] Information not available 04/04/2022 Do You Use Sunscreen Routinely? Yes [email or web address] Information not available 04/04/2022 Has Tobacco Cessation Counseling Been Provided? No [email or web address] Information not available 04/04/2022 Do You Have Difficulty Walking Or Climbing Stairs? No [email or web address] Information not available 04/04/2022 Sex: Unknown Functional Status Question Answer Note LastModified by Organizat ion Details LastModified Time Do you use any illicit or recreational drugs? No Information not available 04/04/2022 Do you or have you ever used any other forms of tobacco or nicotine? No Information not available 04/04/2022 What is your level of alcohol consumption? None [email or web address] Information not available 04/04/2022 Are you able to walk independently without assistance or assistive devices? YESWOREST [email or web address] Information not available 04/04/2022 Are you able to care for yourself independently? Yes [email or web address] Information not available 04/04/2022 Do you have difficulty dressing, bathing, grooming, or toileting? No Information not available 04/04/2022 What is your exercise level? Occasional [email or web address] Information not available 04/04/2022 Mental Status Question Answer Note LastModified by Organization D etails LastModified Time Do you feel stressed (tense, restless, nervous, or anxious, or unable to sleep at night)? [id number] [email or web address] Information not available 04/04/2022 Family History Relationship Description Onset Age of this Age Resolved Age Notes LastModified by Organization Details LastModified Time Mother Malignant neoplasm of cervix uteri suspected [email or web address] Not available 2019 12:00:56 Mother Cyst of ovary [email or web address] Not available 2019 12:01:06 Mother Hypertensive disorder [email or web address] Not available 2019 12:01:31 Maternal Grandmother Hypertensive disorder [email or web address] Not available 2019 12:01:31 Maternal Grandmother Disorder of cardiovascul ar system [email or web address] Not available 2019 12:01:49 Maternal Grandmother Hyperlipidem ia [email or web address] Not available 2019 12:02:28 Paternal Grandfather Disorder of cardiovascul ar system [email or web address] Not available 2019 12:01:49 Paternal Grandmother Diabetes mellitus [email or web address] Not available 2019 12:02:41 Paternal Aunt Infertility care [email or web address] Not available 2019 12:02:54 Paternal Aunt Cyst of ovary [email or web address] Not available 2019 12:03:23 Medical History Condition Response Allergies (Food, seasonal, environmental ) N Other Y Blood Transfusion N Drug/Latex Allergies/Reactions N Breast Cancer N Dermatologic Disorders N Lung Disease N Defects or Inherited Disease N Breast Problem N Gestational Diabetes N Hematologic disorders Y Anesthesia Complications N History of STI N Deep Vein Thrombosis N Polycystic ovary syndrome N Anxiety Disorder Y Autoimmune disease N Arthritis N Infertility N Polyps N Acid Reflux (GERD) N History of abnormal pap N Cancer N Stroke N Varicosities N Neurologic/Epilepsy N Endometriosis N High Cholesterol N Headaches N Fibromyalgia Y Kidney Disease N Heart Problems N Kidney or Bladder Problems Y Thyroid Problems N GI Problems N Eating Disorder N Anemia N Art (IVF or FET) N Psychiatric Illness N Ovarian Cancer N Diabetes N Pulmonary (TB, Asthma) N Hepatitis/Liver Disease N No Past Medical History N Eczema N Urinary Tract Infection Y Abuse/Domestic Violence N Asthma N Trauma/Violence N Depression/ depression Y Heart Disease N Pre-Eclampsia N Hypertension N Osteoporosis N Thrombophilias N Gynecological History Statement/Question Response Abnormal Pap N Flow Moderate Date of LMP 02/28/2025 Was last menstrual period normal Y STIs/STDs N HPV Vaccine N Duration of Flow (days) 4 Current Control Method Sterilizati on Are cycles usually normal Y Date of Last Colonoscopy Frequency of Cycle (Q days) 30 Sexually Active? Y Menses Monthly Y Date of DEXA bone scan Age of first menstrual cycle 13 Date of Last Pap Smear 01/31/2025 Sexual Problems? N Desired Control Method Sterilizati on LMP Approximate Obstetrics History GPAL:G 2 P 2 0 0 2 Type Value Full Term 2 Living 2 Total 2 Past Encounters Encounter ID Performer Location Encounter Start Date Encounter Closed Date Diagnosis/Indication Diagnosis SNOMED-CT Code Diagnosis ICD10 Code Diagnosis IMO Codes Diagnosis Note [id number] Esha Tilley [facility] [address] [address] 04/02/2020 09:16:43 04/02/2020 09:54:44 Mass of left breast [id number] 8943695 N63.20 Left breast lump still present but feels slightly enlarged. Previous US was wnl. She has recently stopped breast feeding almost a month ago & she has not noticed any positive resolution to this area of concern like she had hoped. We agreed on updated imaging & referral to breast specialist to ensure no issues or bx is needed. Time spent in visit is a total of 15 mins with at least 50% of visit consisting of counseling and review of plan of care. [id number] Liz Glass CNM [facility] [address] [address] 10/15/2021 15:56:23 10/16/2021 18:33:00 Gynecologic examination 73222718 Z01.419 Z11.3 Z11.8 test positive 720798346 Z32.01 Risk factors addressed: Tobacco Cessation, Safe Sexual Practices, environmen muna, work hazards, travel restrictio ns, seat belt use.Eat a health well balanced diet, avoid alcohol, tobacco, and street drugs.Enga ge in daily low impact exercise, avoid temperatur e extremes, and cat, rodent, and bird feces.Avoi d travel to areas where zika virus is a concern.Of fered cf/sma/nip t. Desires testing. 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 Handouts given and discussed with patient.Ch ildbirth classes recommende d.New OB sheet given.If previous , counseling .Pt verbalizes that she understand s the importance of above instructio ns.All questions were answered.P atient reminded to have annual well woman examinatio n and address preventati ve healthcare . [id number] MD Jose Gr [address],[place] [address] 10/15/2021 15:53:03 10/15/2021 16:48:52 [id number] Albania Brock MD [facility] [address],[place] [address] 11/26/2021 10:27:57 11/26/2021 13:11:41 [id number] Albania Brock MD [facility] [address],[place] [address] 11/26/2021 10:28:29 11/26/2021 12:21:30 Routine care [id number] Z34.92 [id number] Anna Nguyen [facility] [address],[place] [address] 12/25/2021 16:55:49 12/25/2021 18:49:34 Routine care 039654389 Z34.92 [id number] Lavon Winter MD [facility] [address],[place] [address] 12/25/2021 16:55:30 12/25/2021 18:44:54 screening 521653695 Z36.3 [id number] MD Jose Gr [address],[place] [address] 02/13/2022 14:26:19 02/13/2022 15:07:14 Low-lying placenta 377969961 O44.42 O99.891 U07.1 Z3A.27 [id number] MD Jose Gr [address],[place] [address] 02/13/2022 15:09:40 02/13/2022 16:11:50 Routine care 071091745 Z34.82 [id number] MD Jose Gr [address],[place] [address] 03/10/2022 16:15:10 03/10/2022 17:46:28 Routine care 391330440 Z34.82 [id number] Lavon Winter MD [facility] [address],[place] [address] 03/21/2022 14:59:06 03/21/2022 15:41:36 Routine care 615265348 Z34.82 Calculus o f kidney and ureter 762541189 N20.2 [id number] Albania Brock MD [facility] [address],[place] [address] 03/31/2022 16:54:16 03/31/2022 17:37:20 COVID-19 495075621 U07.1 [id number] [facility] [address],[place] [address] 04/04/2022 14:06:11 04/04/2022 14:32:17 Routine care 748658104 Z34.92 [id number] Lavon Wintre MD [facility] [address],[place] [address] 04/23/2022 09:15:22 04/23/2022 11:30:59 COVID-19 283433073 U07.1 O99.891 Z86.16 Z3A.37 [id number] [facility] [address],[place] [address] 04/23/2022 09:17:28 04/23/2022 11:30:12 Routine care 670947851 Z34.92 [id number] Lavon Winter MD [facility] [address],[place] [address] 04/23/2022 11:17:32 04/23/2022 15:30:27 Abnormality of heart 632275606 O36.8999 [id number] Liz Glass [facility] [address],[place] [address] 04/29/2022 10:45:53 04/29/2022 11:48:17 Routine care 939857327 Z34.93 [id number] [facility] [address],[place] [address] 05/07/2022 13:51:32 05/07/2022 14:41:03 Routine care 640003021 Z34.92 [id number] Anna JoyJacquelyn Patrick, [facility] [address],[place] [address] 06/18/2022 15:31:00 06/18/2022 16:19:09 care 373114946 Z39.2 [id number] Esha Tilley [facility] [address],[place] [address] 12/23/2022 15:50:34 12/23/2022 17:15:37 Gynecologic examination 21317434 Z01.419 Take Calcium with Vitamin D 1200mg daily if not receiving in daily diet. It is strongly advised to have an annual flu shot and up can obtain at most pharmacies . If you have not had a TDap shot in the last 10 years you should obtain one as well. Discussed with patient & provided with informatio n regarding Gardisil vaccine to prevent the 4 strains for HPV that cause cervical cancer if under age 26. Encourage safe sexual practices, to use condoms and limit partners if not already in a monogamous relationsh ip. Do monthly self breast exams. Have mammogram yearly or every other year depending on family history. BRCA testing is now available for patients with strong genetic history of female cancer. If interested contact the office. Engage in daily exercise of low impact aerobic exercise 45-60 minutes 4-5 times weekly. Avoid tobacco and illicit drugs as well as using moderation with alcohol intake less than 1-2 8 oz beverages daily. This lifestyle behavior pattern will lead to less health conditions and longer life span. If BMI greater than 25 weight watchers or dietary consult advised. Patient received above instructio ns, and questions have been answered. If you have any questions please call or respond to this email. Patient was made aware of the patient portal and may obtain a paper copy of today's plan if desired. Pap sent STD Screen declined Genetic Screen discussed Colon Screen na Dexa Screen na Routine Labs PCPCall for consult if interested in Tubal ligation [id number] Ruby Jolley [facility] [address],[place] [address] 01/31/2025 10:57:31 01/31/2025 12:10:46 Gynecologic examination 07112967 Z01.374 [id number] [facility] - will schedule with if desires permanent sterlizati onPap - done todaySTI screen - gc/ct/tric h testing added to papHIV/Hep B&C/Syphil is testing ordered per pt requestRou tiki labs - PCPRTC in 1 yr or sooner if needed It is strongly advised to have an annual flu shot and up can obtain at most pharmacies . If you have not had a TDap shot in the last 10 years you should obtain one as well. Discussed with patient & provided with informatio n regarding the HPV vaccine if applicable . Encourage safe sexual practices, to use condoms and limit partners if not already in a monogamous relationsh ip. Do monthly self breast exams. BRCA testing is now available for patients with strong genetic history of female cancer. If interested contact the office. Engage in regular exercise. Avoid tobacco and illicit drugs. This lifestyle behavior pattern will lead to less health conditions and longer life span. If BMI greater than 25 dietary consult advised. Questions answered. Venereal d isease screening 511195799 Z11.3 [id number] Sexually t ransmitted infectious disease 2416898 A64 Mass of left breast 1224 994144 3223442 N63.20 [id number] order given for left breast u/s [id number] Lavon Winter MD [facility] [address] [address] 02/28/2025 11:40:46 02/28/2025 12:51:16 Sterilization education 550658880 Z30.09 [id number] This patient presents for female sterilizat ion. The patient desires tubal ligation. She is certain that she no longer wants to be fertile. We discussed sterilizat ion in detail. I described the procedure to the patient in detail. I informed her that we remove the tubes entirely in a. We discussed alternativ es. The patient knows they are highly effective reversible options. She understand s that the Salpingect mitzi n is permanent. We discussed failure rate. She understand s there is reported failure rate to salpingect mitzi.. As described salpingect mitzi and removal of the entire tube. I discussed the reduction in ovarian cancer risk. The patient understand s and is ready to proceed with laparoscop ic bilateral salpingect mitzi. She understand s the tubes we will be removed. She return for informed consent process. Her surgery will be scheduled. spent more than 40 minutes face-to-fa ce. More than 50% was counseling . We made a decision to perform surgery. I spent over 30 minutes on the patient's care in total. [id number] Lavon Winter MD [facility] [address] [address] 04/04/2025 08:44:03 04/06/2025 09:15:23 [id number] Lavon Winter MD [facility] [address] [address] 04/21/2025 15:43:24 04/21/2025 16:51:53 Surgical follow-up [id number] Z09 516006 This patient is a 30-year-ol d female who presents for postop follow-up. She is 1 week postop from a laparoscop ic bilatera Salpingect mitzi. Her incisions are clean dry and intact. She has no complaints . She is recovering normally. She will follow up as needed. Health Concerns Section Related Observation LastModified by Organization Detai ls LastModified Time None Recorded Concern Status LastModified by Organization Details LastModified Time None Recorded Advance Directives Directive None Recorded Payers Insurance Date Sequence Insurance Name Policy Number Policy Bhagat Covered Member ID Bhagat Member ID Guarantor Name 04/02/2020 1 *SELF PAY* Danis Catalan 04/01/2025 1 [place] Jose Catalan [id number] Jose Catalan 01/31/2025 2 [place] [employer] Jose Catalan [id number] Jose Catalan 05/31/2025 2 [place] Jose Catalan [id number] Jose Catalan Notes Date Note Type Note Provider Name and Address Organization Details Recorded Time 3 text/html Annual GYNReported by PatientGenitourinary symptomsFor menstrual cycle, patient reportsnormal menses. For urinary symptoms, patient reportsno hematuriaandno incontinence. For vulva, patient reportsno genital lesion. For vagina, patient reportsnormal vaginal discharge.Breast symptomsFor breast, patient reportsno breast pain,no breast lump, andno nipple discharge.ContraceptionFo r current contraception, patient reportscondoms.Endocrine symptomsFor sexual complaints, patient reportsno sexual complaints,no pain during intercourse, andnormal libido. For menopausal symptoms, patient reportsno menopausal symptomsandnormal vaginal lubrication.Psychological symptomsFor psychological symptoms, patient reportsno depression,no anxiety, andno pmdd.Preventative measuresFor preventive measures, patient reportsencourage self breast examination,encourage regular exercise,encourage no tobacco use,encourage regular mammograms starting age 40, andfollowed with yearly pap smears. Esha Tilley, [facility]- [address], [place], [address], [facility] 12/23/2022 17:14:46 5 text/html Annual GYNReported by PatientGenitourinary symptomsFor menstrual cycle, patient reportsnormal menses. For urinary symptoms, patient reportsno hematuriaandno incontinence. For vulva, patient reportsno genital lesion. For vagina, patient reportsnormal vaginal discharge.Breast symptomsFor breast, patient reportsno breast pain,no breast lump, andno nipple discharge.Endocrine symptomsFor sexual complaints, patient reportsno sexual complaints,no pain during intercourse, andnormal libido. 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 No changes to this area that she has noticed since. would like STI testing Princess schwarz, [facility] 01/31/2025 11:51:29 5 text/html This patient presents for female sterilization. The patient desires tubal ligation. She is certain that she no longer wants to be fertile. We discussed sterilization in detail. I described the procedure to the patient in detail. I informed her that we remove the tubes entirely in a. We discussed alternatives. The patient knows they are highly effective reversible options. She understands that the Salpingectomy n is permanent. We discussed failure rate. She understands there is reported failure rate to salpingectomy.. As described salpingectomy and removal of the entire tube. I discussed the reduction in ovarian cancer risk. The patient understands and is ready to proceed with laparoscopic bilateral salpingectomy. She understands the tubes we will be removed. She return for informed consent process. Her surgery will be scheduled. spent more than 40 minutes [id number]. More than 50% was counseling. We made a decision to perform surgery. I spent over 30 minutes on the patient's care in total. Lavon Winter MD [address], [place], [address], [facility] 02/28/2025 12:46:50 5 text/html This patient is a 30-year-old female who presents for postop follow-up. She is 1 week postop from a laparoscopic bilatera Salpingectomy. Her incisions are clean dry and intact. She has no complaints. She is recovering normally. She will follow up as needed. Lavon Winter MD [address], [place], [address], [facility] 04/21/2025 16:51:14 OBGyn Episode Ob Episode Information Episode Created Date Number of Fetuses Patient Bloodtype Patient rh Status Prepregnancy Weight lbs Domestic Partner Domestic Partner Phone Father Name Contact Representative Status 04/02/20 20 1 CLOSED Fetus Data First Name Last Name Admitted to NICU Weight (g) Sex Living Outcome Pediatric Complications Fetus ID Race Codes Race Delivery Type 3146.56 7704 M Full Term 3401 Vaginal Delivery Ananda Calculation Initial Ananda Date Initial Exam Date Initial Exam Provider Initial Ultrasound Date Last Menstrual Period Date Ultra Sound Weeks Gestation 0 Eighteen To Twenty Week Ananda Update Ultra Sound Date Fundal Height At Umbil Quickening Date Ultra Sound Latest Weeks Gestation Final Ananda Confirmed By Final Ananda Confirmed Date Final Ananda Date Ultra Sound Latest Days Gestation 0 0 Menstrual History Last Menstrual Date Menses Monthly On Bcp Conception Prior Menses Frequency Hcg Plus Date Menarche Onset Age Delivery Information Delivery Date Delivery Type Labor Anesthesia Weeks Gestation Incision Type Labor Labor Length Hrs Delivered By Post Complications Tubal Sterilization Discharge Date Comments 9 39 false Discharge Information Feeding Method Contraceptive Method Maternal HG B and HCT Levels Ob Episode Information Episode Created Date Number of Fetuses Patient Bloodtype Patient rh Status Prepregnancy Weight lbs Domestic Partner Domestic Partner Phone Father Name Contact Representative Status 11/27/19 22 1 A Positive 134 CLOSED Fetus Data First Name Last Name Admitted to NICU Weight (g) Sex Living Outcome Pediatric Complications Fetus ID Race Codes Race Delivery Type true 3175.14 4 M true Full Term see nursery notes [id number] Vaginal Delivery Problems Problem Notes 28WK PANEL WNL Problem Name Start Date End Date Resolution Snomed Code Not e COVID-19 01/24/2022 [id number] baby asa serial growth Low-lying placenta 02/13/2022 SELFRESOLVED [id number] RESOLVED Chronic interstitial cystitis [id number] on disability f or this. did well last without flares. Mixed anxiety and depressive disorder [id number] no meds for years, stable Ex-smoker [id number] quit when found out Abnormality of heart 04/23/2022 [id number] Fluid around fe muna heart. M 04/23. - Level II u/s WNL - just routine care Pain in pelvis 59746916 pelvi c girdle pain per Pt. Kidney stone [id number] Ananda Calculation Initial Ananda Date Initial Exam Date Initial Exam Provider Initial Ultrasound Date Last Menstrual Period Date Ultra Sound Weeks Gestation 05/14/2022 11/26/2021 10/15/2021 08/07/2021 10 Eighteen To Twenty Week Ananda Update Ultra Sound Date Fundal Height At Umbil Quickening Date Ultra Sound Latest Weeks Gestation Final Ananda Confirmed By Final Ananda Confirmed Date Final Ananda Date Ultra Sound Latest Days Gestation 0 [email or web address] 11/26/2021 05/14/20 22 0 Pre-adriano Flowsheet Flowsheet Date 11/26/2021 Varela Score Blood Edema Fundus Height Fundus Units Glucose Ketones Leukocytes Nitrite Labor Signs Protein Cervic Dilation Cervic Effacement Cervic Station Type Weight in lbs Pre/Post Dialysis Refused BP Diastolic BP Location Tested BP Systolic BP Type Fetus Heart Rate Present Fetus Movement Comments Flowsheet Date 11/26/2021 Varela Score Blood Edema Fundus Height Fundus Units Glucose Ketones Leukocytes Nitrite Labor Signs Protein Cervic Dilation Cervic Effacement Cervic Station neg none none trace Type Weight in lbs Pre/Post Dialysis Refused Weight 142.260704328924 BP Diastolic BP Location Tested BP Systolic BP Type 66 117 Fetus Heart Rate Present A 145 Fetus Movement A No Comments jose is a 26yo at 15.6 for care. Missed last appt because had GI virus. Is on disabilty for chronic IC, had multiple surgeries for this. She did not, however, have issues during her last . She quit smoking when she found out. Has not had flu or covid vaccines, discussed and encouraged, she is considering. Also quit MJ when found out. Too late for NT today. PNL and NIPT today. Flowsheet Date 12/25/2021 Varela Score Blood Edema Fundus Height Fundus Units Glucose Ketones Leukocytes Nitrite Labor Signs Protein Cervic Dilation Cervic Effacement Cervic Station Type Weight in lbs Pre/Post Dialysis Refused BP Diastolic BP Location Tested BP Systolic BP Type Fetus Heart Rate Present Fetus Movement Comments Flowsheet Date 12/25/2021 Varela Score Blood Edema Fundus Height Fundus Units Glucose Ketones Leukocytes Nitrite Labor Signs Protein Cervic Dilation Cervic Effacement Cervic Station neg none trace Type Weight in lbs Pre/Post Dialysis Refused Weight 146.879996554881 BP Diastolic BP Location Tested BP Systolic BP Type 72 110 Fetus Heart Rate Present Fetus Movement A Yes Comments patient is having some pelvi c pain. anatomy complete, efw 52%, LLP f/u 4 weeks Flowsheet Date 02/13/2022 Varela Score Blood Edema Fundus Height Fundus Units Glucose Ketones Leukocytes Nitrite Labor Signs Protein Cervic Dilation Cervic Effacement Cervic Station Type Weight in lbs Pre/Post Dialysis Refused BP Diastolic BP Location Tested BP Systolic BP Type Fetus Heart Rate Present Fetus Movement Comments Flowsheet Date 02/13/2022 Varela Score Blood Edema Fundus Height Fundus Units Glucose Ketones Leukocytes Nitrite Labor Signs Protein Cervic Dilation Cervic Effacement Cervic Station 27 Type Weight in lbs Pre/Post Dialysis Refused Weight 153.666367265607 BP Diastolic BP Location Tested BP Systolic BP Type 70 R arm 120 sitting Fetus Heart Rate Present A 145 Fetus Movement A Yes Comments care patient reports more pr essure than her 1st , she has pelvic floor dysfunction. Her baby feels lower and it is somewhat painful. She is going to let us know thick its worst. It is been stable for several days. Flowsheet Date 03/10/2022 Varela Score Blood Edema Fundus Height Fundus Units Glucose Ketones Leukocytes Nitrite Labor Signs Protein Cervic Dilation Cervic Effacement Cervic Station 30 Type Weight in lbs Pre/Post Dialysis Refused Weight 155.85256842311 BP Diastolic BP Location Tested BP Systolic BP Type 77 R arm 118 sitting Fetus Heart Rate Present A 145 Fetus Movement A Yes Comments patient continues to have pe lvic girdle pain, worsening, no particular worsening of or presents of pelvic pressure. Flowsheet Date 03/21/2022 Varela Score Blood Edema Fundus Height Fundus Units Glucose Ketones Leukocytes Nitrite Labor Signs Protein Cervic Dilation Cervic Effacement Cervic Station 32 Type Weight in lbs Pre/Post Dialysis Refused Weight 158.493182841338 BP Diastolic BP Location Tested BP Systolic BP Type 77 R arm 123 sitting Fetus Heart Rate Present A 145 Fetus Movement Comments This patient is a 34-year-ol d female, 2 para 1 she was observed in Labor and delivery for acute flank pain. Was on the left side. Some days later she started experiencing contralateral flank pain. She was presumed to have a stone in labor delivery. No imaging was performed. There was no Urology consult. We will obtain imaging and consider consultation if there is marked ureteral dilatation. Flowsheet Date 03/31/2022 Varela Score Blood Edema Fundus Height Fundus Units Glucose Ketones Leukocytes Nitrite Labor Signs Protein Cervic Dilation Cervic Effacement Cervic Station Type Weight in lbs Pre/Post Dialysis Refused BP Diastolic BP Location Tested BP Systolic BP Type Fetus Heart Rate Present Fetus Movement Comments Flowsheet Date 04/04/2022 Varela Score Blood Edema Fundus Height Fundus Units Glucose Ketones Leukocytes Nitrite Labor Signs Protein Cervic Dilation Cervic Effacement Cervic Station Type Weight in lbs Pre/Post Dialysis Refused Weight 156.880117601337 BP Diastolic BP Location Tested BP Systolic BP Type 80 119 Fetus Heart Rate Present Fetus Movement Comments efw 38% on 03/31, occ flank pa in, precautions reviewed, gbs next visit growth in 4 weeks call for preadmission Flowsheet Date 04/23/2022 Varela Score Blood Edema Fundus Height Fundus Units Glucose Ketones Leukocytes Nitrite Labor Signs Protein Cervic Dilation Cervic Effacement Cervic Station Type Weight in lbs Pre/Post Dialysis Refused BP Diastolic BP Location Tested BP Systolic BP Type Fetus Heart Rate Present Fetus Movement Comments Flowsheet Date 04/23/2022 Varela Score Blood Edema Fundus Height Fundus Units Glucose Ketones Leukocytes Nitrite Labor Signs Protein Cervic Dilation Cervic Effacement Cervic Station neg trace none trace Type Weight in lbs Pre/Post Dialysis Refused Weight 158.836368437501 BP Diastolic BP Location Tested BP Systolic BP Type 68 103 Fetus Heart Rate Present Fetus Movement A Yes Comments patient is having some BH co ntractions and swelling. reviewed us with dr. brock, fluid/blood? around heart, appt with m today Flowsheet Date 04/23/2022 Varela Score Blood Edema Fundus Height Fundus Units Glucose Ketones Leukocytes Nitrite Labor Signs Protein Cervic Dilation Cervic Effacement Cervic Station Type Weight in lbs Pre/Post Dialysis Refused BP Diastolic BP Location Tested BP Systolic BP Type Fetus Heart Rate Present Fetus Movement Comments Flowsheet Date 04/29/2022 Varela Score Blood Edema Fundus Height Fundus Units Glucose Ketones Leukocytes Nitrite Labor Signs Protein Cervic Dilation Cervic Effacement Cervic Station neg none 37 none trace 1cm 50% -2 Type Weight in lbs Pre/Post Dialysis Refused Weight 159.320833863224 BP Diastolic BP Location Tested BP Systolic BP Type 74 117 Fetus Heart Rate Present A 131 Fetus Movement A Yes Comments Doing well. Lower back and h ip discomfort. No regular contractions. Having a boy! Labor precautions discussed. Pt desires spontaneous labor. Will consider membrane sweep after 40 weeks. Flowsheet Date 05/07/2022 Varela Score Blood Edema Fundus Height Fundus Units Glucose Ketones Leukocytes Nitrite Labor Signs Protein Cervic Dilation Cervic Effacement Cervic Station neg trace 39 none trace 2cm 80% -1 Type Weight in lbs Pre/Post Dialysis Refused Weight 159.219146876307 BP Diastolic BP Location Tested BP Systolic BP Type 75 115 Fetus Heart Rate Present A 150 Fetus Movement A Yes Comments patient is having green /yel low discharge and swelling. precautions reviewed. membrane sweep today f/u one week Menstrual History Last Menstrual Date Menses Monthly On Bcp Conception Prior Menses Frequency Hcg Plus Date Menarche Onset Age 1208/07/2021 Genetic Screening And Infection History Question Response Note Mental Retardation/Autism false Patient's Age Will Be 35 Years Or Older At Estim ated Date of Delivery false Thalassemia (French, Korean, Mediterranean, Or Background): MCV < 80 false Neural Tube Defect (Meningomyelocele, Spina Bifi da, Or Anencephaly) false Congenital Heart Defect false Down Syndrome false Dougie-Sachs (eg, Moravian, Cajun, Cameroonian-[place]) f alse Man Disease false Sickle Cell Disease Or Trait () false Hemophilia Or Other Blood Disorders false Muscular Dystrophy false Cystic Fibrosis false Navid's Chorea false Intellectual Disability/Autism false If Yes, Was Person Tested For Fragile X? false Other Inherited Genetic Or Chromosomal Disorder false Maternal Metabolic Disorder (eg, Type 1 Diabetes , PKU) false Patient Or Baby's Father Had A Child With Defects Not Listed Above false Recurrent Loss, Or A Stillbirth false Medications (including Suppl ements, Vitamins, Herbs, OTC Drugs), Illicit/Recreational Drugs, Alcohol true If Yes, Agent(s) And Strength/Dosage false Any Other Genetic History false Live With Someone With TB Or Exposed To TB false Patient Or Partner Has History Of Genital Herpes false Rash Or Viral Illness Since Last Menstrual Perio d false History Of STD, Gonorrhea, Chlamydia, HPV, Syphi lis false Other Infection History false History of HIV false History of Hepatitis false Prior GBS-infected child false Hemoglobinopathy Or Carrier false Other Structural Defect false Recent Travel History Outside of Country false Delivery Information Delivery Date Delivery Type Labor Anesthesia Weeks Gestation Incision Type Labor Labor Length Hrs Delivered By Post Complications Tubal Sterilization Discharge Date Comments 2 None Regional-Ep idural 39.1 false Anna Nguyen CNM arrythmia Discharge Information Feeding Method Contraceptive Method Maternal HG B and HCT Levels
--- OUTSIDE RECORDS SUMMARY | 2025-06-14 15:05 | XMS_ITS ---
Author Organization [facility] Address [address] [place] [address] Phone Care Team Providers Care Appliance Technician Name Role Phone Amish Weaver MD Primary Care Provider [phone] [facility] Status:Enrolled (Active) Start date:09/28/2024 Enrollment date:09/28/2024 Related social drivers of health:Intimate Partner Violence, Social Connections, Alcohol Use, Tobacco Use, Financial Resource Strain,Depression, Stress, Physical Activity, Food Insecurity, Transportation Needs, Housing Stability, Utilities Continued Care and Services Coordination
--- OUTSIDE RECORDS SUMMARY | 2025-06-14 15:05 | XMS_ITS | Encounter Summary ---
Author Organization [facility] Address [address] [place] [address] Care Team Providers Care Library Monitor Name Role Phone Amish Weaver MD Primary Care Provider [phone] Encounter Details Date Type Department Care Team (Late st Contact Info) Description 07/20/2023 MyCRegeneRxt Message Enc [facility] Family Medicine - [place] [address] [facility], [address] [place] [phone] Amish Weaver MD [address] [place] [address] UTI/ KIDNEY INFECTION Social History Tobacco Use [...] Depression Total Score: 12 023 11:14 AM NATURAL FABRICATOR documented as of this encounter Care Teams Library Monitor Relationship Specialty Start Date End Date Amish Weaver MD [address] [address] [place] [address] PCP - General FAMILY PRACTICE 08/15/19 documented as of this encounter
--- OUTSIDE RECORDS SUMMARY | 2025-06-14 15:05 | XMS_ITS | Clinical Summary ---
Author Organization [facility] Address [address] [place] [address] Phone Care Team Providers Care Call Center Team Leader Name Role Phone Amish Weaver MD Primary Care Provider [phone] Allergies No known active allergies Medications AMITRIPTYLINE [...] Virus (HCV) Screening 1997 Pap Smear 2018 Influenza Immunization (#1) 05/01/202505/02, 05/24/2014, 06/15/2013, Additional history exists SARS-COV-2 Immunization ( season) 2025 Respiratory Syncytial Virus (RSV) Immunization (Adult) (1 [...] patient's age to complete this topic Insurance MEDICARE Care Teams Call Center Team Leader Relationship Specialty Start Date End Date Amish Weaver MD [address] [facility] [address] [place] [address] PCP - General Family Medicine 09/25/19
--- OUTSIDE RECORDS SUMMARY | 2025-06-14 15:05 | XMS_ITS | Encounter Summary ---
Author Organization [facility] Address [address] [place] [id number] Care Team Providers Care Dampproofer Name Role Phone Amish Weaver MD Primary Care Provider [phone] Encounter Details Date Type Department Care Team (Late st Contact Info) Description 09/06/2024 MyCCelluFuelt Message Enc [facility] Family Medicine - [place] [address] [facility], [address] [place] [phone] Amish Weaver MD [address] [place], [place] [phone] ECG recent ER visit Social History Tobacco [...] hopeless Not at all 09/07/2024 1:08 PM CLIPPER MACHINE Fanny Keita MA Active Patient Health Questionnaire-2 Score 0 09/07/2024 1:08 PM CLIPPER MACHINE Deloris Keita MA Active documented as of this encounter Plan of Treatment Not on file documented as of this encounter Visit Diagnoses Not on filedocumented in this encounter Additional Health Concerns Assessment Noted Time PHQ-9 Depression Total Score: 12 023 11:14 AM CLIPPER MACHINE documented as of this encounter Care Teams Dampproofer Relationship Specialty Start Date End Date Amish Weaver MD [address] [address] PCP - General FAMILY PRACTICE 08/15/19 documented as of this encounter
--- OUTSIDE RECORDS SUMMARY | 2025-06-14 15:05 | XMS_ITS | Encounter Summary ---
Author Organization [facility] Address [address] [place] [address] Care Team Providers Care Air Transportation Provider Name Role Phone Amish Weaver MD Primary Care Provider [phone] Encounter Details Date Type Department Care Team (Late st Contact Info) Description 10/05/2024 MyCFriendFinder Networkst Message Enc [facility] Family Medicine - [place] [address] [facility], [address] [place] [phone] Amish Weaver MD [address] [address] [facility], [place] [phone] Varnish Cooker Social History Tobacco Use Types Packs/Day Years [...] Depression Total Score: 12 023 11:14 AM EMERGENCY DEPARTMENT PHYSICIAN documented as of this encounter Care Teams Air Transportation Provider Relationship Specialty Start Date End Date Amish Weaver MD [address] [facility] [address] [place] [address] PCP - General FAMILY PRACTICE 08/15/19 documented as of this encounter
--- OUTSIDE RECORDS SUMMARY | 2025-06-14 15:05 | XMS_ITS | Clinical Summary ---
Author Organization [facility] Address [address] [place] [address] Care Team Providers Care Cotton Stomper Name Role Phone Amish Weaver MD Primary Care Provider [phone] Allergies No known active allergies Medications cetirizine (ZYRTEC) 10 MG tablet Take 1 tablet (10 mg total) by mouth daily. Active Famotidine (PEPCID OR) Active omalizumab (XOLAIR) 150 MG/ML injection (autoinjector) Inject into the skin every 28 days. Active EPINEPHrine 0.3 MG/0.3ML injectionIndicat ions:Allergic reaction, initial encounter Inject 0.3 mLs (0.3 mg total) into the muscle as needed for Anaphylaxis . 2 each 3 05/02/2025 Active Active Problems Patient Care Coordination No te Formatting of this note migh t be different from the original. PHYSICAL THERAPY PRECAUTIONS: I.C. Problem Noted Date Diagnosed Date Allergic reaction, initial encounter 06/08/2024 Chronic idiopathic constipation 05/17/2023 Chronic ulcerating interstitial cystitis 019 Fibromyalgia 08/15/2019 Anxiety 01/08/2016 Resolved Problems Problem Noted Date Diagnosed Date Resolved Date Left breast mass 04/27/2020 06/08/2024 Bipolar 2 disorder 03/08/2020 3 Urinary tract infection 08/08/201701/29 Assessment & Plan (08/09/2017 3:31 PM BREAKER ENGINEER): Acute Sofia in place for urethral spasms and interstitial cystisis Afebrile, leukocytosis (resolved) - Levaquin 750mg daily - 2 doses IV and then complete as outpatient - Discharge with 5 days of Levaquin 750mg daily - Continue home tramadol 50mg - Flexeril 10mg q6h PRN for muscle spasm - prescribed 10 tabs - Follow-up with urologist Thursday08/10/17 for further sofia management. Encounters Date Type Department Care Team Description 05/02/2025 Telephone [facility] Family Medicine - [place] [address] [facility], [address] [place] [phone] Amish Weaver MD Refill Request 04/04/2025 Scan Apto INFO SRVCS Scanned, Doc Med Group Lab (SCAN); Pathology (SCAN); Procedure (SCAN) from Last 3 Months Immunizations Immunization Administration Dates Next Due Dtap [...] Additional history exists COVID-19 Vaccine ( season) 2025 Influenza Adult (#1) 2025 05/24/2014, 06/15/2013, 06/16/2012, Additional history exists Cervical Cancer Screening Pap Smear (Age 21 to 29) Every 3 Years 12/23/2025 12/23/2022, 12/23/2022 Cervical Cancer Screening 12/23/2025 Hepatitis B Vaccines Completed 1997, 1997, 1997 HPV Vaccines Completed 07/03/2008, 03/01, 11/30/2007 Meningococcal Vaccine Completed 11/08/2013, 008 PHQ-2 (Physician Morongo) Completed 09/07/2024 Meningococcal B Vaccine Aged Out [...] Procedure Name Priority Date/Time Associated Diagnosis Comments PATHOLOGY GENERIC (SCAN ORDER) 04/04/2025 OUTSIDE LAB (SCAN ORDER) 04/04/2025 PROCEDURE GENERIC (SCAN ORDER) 04/04/2025 OUTSIDE CYTOPATH CERV/VAG IN TERPRET (PAP) (SCAN ORDER) Routine 12/23/2022 from Last 3 Months or Most Recently Relevant to Health Maintenance Results * PATHOLOGY GENERIC (SCAN ORDER) (04/04/2025) 04/04/2025 Result [employer] Scanned SCANNING Final Resu lt * OUTSIDE LAB (SCAN ORDER) (04/04/2025) 04/04/2025 Result [employer] Scanned SCANNING Final Resu lt * PROCEDURE GENERIC (SCAN ORDER) (04/04/2025) 04/04/2025 Result [employer] Scanned SCANNING Final Resu lt * PAP SMEAR (12/23/2022) 12/23/2022 [employer] Scanned SCANNING Final Resu lt [facility] ONBASE from Last 3 Months or Most Recently Relevant to Health Maintenance Insurance MEDICARE MEDICAID Advance Directives * Full Code (Latest Code Status on File) Date Activated Date Inactivated Comments 08/08/2017 4:43 PM 08/09/2017 7:04 PM Care Teams Cotton Stomper Relationship Specialty Start Date End Date Amish Weaver MD [address] [facility] [address] [place] [address] PCP - General FAMILY PRACTICE 08/15/19
--- OUTSIDE RECORDS SUMMARY | 2025-06-14 15:05 | XMS_ITS | Clinical Summary ---
Author Organization [facility] Address [address] [place] [address] Care Team Providers Care Adult Caregiver Name Role Phone Amish Weaver MD Primary Care Provider [phone] Allergies No known active allergies Medications [id number] fumarate-FA () 28-800 mg-mcg tablet Take 1 tablet by mouth prison keeper before breakfast Active escitalopram (LEXAPRO) 5 mg [...] (06/29/2020): Added automatically from request for surgery [id number] Mass of breast 11/21/2016 Overview (01/23/2017): Breast mass Surgical History Surgery Date Site/Laterality Comments OTHER [...] on file Legal Sex Female 12:15 PM MUSIC LEADER Gender Identity Not on file Sexual Orientation [...] , 1997, 1997 HPV Vaccines Completed 07/03/2008, 0705/2008, 11/30/2007 Hepatitis C Screening Completed 10/20/2016 Varicella Vaccines Completed 02/21/2019, 0 03/02/2001, 03/01/1998 Pneumococcal vaccine <65 Aged Out No longer eligible based on patient's age to complete this topic Procedures Procedure Name Priority Date/Time Associated Diagnosis Comments SERUM HEPATITIS C AB Routine 10/20/2016 3:37 PM MUSIC LEADER from Last 3 Months or Most Recently Relevant to Health Maintenance Results * Serum Hepatitis C ab (10/20/2016 3:37 PM MUSIC LEADER) HCV ab Negative Negative CDR HISTOR ICAL RESULTS Serum 10/20/2016 3:37 PM MUSIC LEADER us Ngoc Ac MD LAB BLOOD ORDERABLES Final Resul t CDR HISTORICAL RESULTS from Last 3 Months or Most Recently Relevant to Health Maintenance Insurance MEDICARE [facility] MEDICARE [employer] MEDICARE IDPA Care Teams Adult Caregiver Relationship Specialty Start Date End Date Amish Weaver MD [address] [facility] [address] [place] [address] PCP - General Family Practice 08/25/19
--- OUTSIDE RECORDS SUMMARY | 2025-06-14 15:05 | XMS_ITS | Clinical Summary ---
Author Organization [facility] Address [address] [place] [address] Care Team Providers Care Car Whacker Name Role Phone Amish Weaver MD Primary Care Provider [phone] Source Comments [facility],non-owned Affiliates and Associated Physician Practices is amultiple site organization consisting of ambulatory clinics and hospital sitesin [place], [place], [place] and [place]. This disclosure is being madepursuant to the Care Everywhere program and may not contain all information available regarding this patient. Last updated 18.[facility] Allergies Active Allergy Reactions Criticality Noted [...] on file Legal Sex Female 5:38 AM ENGLISH LECTURER Gender Identity Not on file Sexual Orientation [...] VACCINE (1 - 3-dose SCDM series) 01/20/2024 DEPRESSION SCREENING 08/31/2024 COVID-19 VACCINE (1 - 2023- season) 2025 INFLUENZA VACCINE (#1) 2025 4, 06/15/2013, 06/16/2012, [...] this topic Medical Devices Implanted Type Area Channel Cementer Outsole Machine Device Identifier Shelf Expiration Date Model / Serial / Lot [id number] Sns Lead Implanted:Qty: 2 on 12/25/2016 by Gi Freeman MD at [facility] Bilateral : Back 10/31/2020 [id number] / / [id number] Interstim Neurostimulator Ii Implanted:Qty: 1 on 01/08/2017 by Gi Freeman MD at [facility] Left: Back 05/28/2018 [id number] / [id number] / Insurance MEDICARE MEDICAID - [place] Care Teams Car Whacker Relationship Specialty Start Date End Date Amish Weaver MD [address] [facility] [address] [place] [address] PCP - General 04/22/20
--- OUTSIDE RECORDS SUMMARY | 2025-06-14 15:05 | XMS_ITS | Encounter Summary ---
Author Organization [facility] Address [address] [place] [address] Care Team Providers Care Chili Maker Name Role Phone Amish Weaver MD Primary Care Provider [phone] Encounter Details Date Type Department Care Team (Late st Contact Info) Description 04/10/2021 MyChart Message Enc [facility] Family Medicine - [place] [address] [place] [id number] Amish Weaver MD [address] [place], [place] [phone] RE: Other Social History Tobacco Use Types [...] documented as of this encounter Care Teams Chili Maker Relationship Specialty Start Date End Date Amish Weaver MD [address] [facility] [address] [place] [address] PCP - General FAMILY PRACTICE 08/15/19 documented as of this encounter
== END 2025-06-14 13:58 | disposition home or self-care (01) ==
PROVIDERS: Emergency Provider Nurse Practitioner Family; PCP Family Medicine
DX: J18.9 Pneumonia, unspecified organism (principal); Z87.891 Personal history of nicotine dependence; Z86.16 Personal history of COVID-19
CPT/HCPCS: 99213; G0463

== ENCOUNTER 2025-07-15 09:39 | Emergency (ER) | payer MEDICARE, MEDICAID, SELFPAY ==
--- NOTE | ~2025-07-15 | XR_ITS ---
Examination: XR ankle RT min 3V Clinical History: Y Comparison: None Technique: 4 views right ankle Findings/impression: 1. No fracture, dislocation, or acute abnormality right ankle. Reviewed, dictated and finalized at location R. [facility] SPECIALIST
--- OUTSIDE RECORDS SUMMARY | 2025-07-15 09:41 | XMS_ITS | Data Portability ---
Author Organization [facility] Address [address] [place] [address] Care Team Providers Care Quality Analyst Name Role Phone NANCIE RAFA Primary Care Provider Assessment Encounter Date Assessment Date Assessment LastModified by Organization Details LastModified Time 12/23/2022 12/23/2022 Annual gynecological exam performed. Patient will come back in a year unless there are new symptoms. [email or web address] Not available 12/23/2022 16:16:50 01/31/2025 01/31/2025 Annual gynecological exam performed. Patient will come back in a year unless there are new symptoms. [email or web address] Not available 01/31/2025 11:14:51 Plan of Treatment Reminders Order Date Submit Date Provider Last Modified By Organization Details Last Modified Time Details Appointments None recorded. Lab hbcab (hepatitis B core Ab) igm, serum 2024 025 [facility] (Lab), [address], [place], [address], 18:44:46 HBsAg (hepatitis B surface Ag), serum 2024 025 [facility] (Lab), [address] [place], [address], 5 18:44:45 hepatitis C virus Ab, serum 2024 025 [facility] (Lab), [address], [place], [address], 5 18:44:46 HIV 1+2 AB + HIV 1 p24 Ag, qualitative immunoassay , serum 2024 025 [facility] (Lab), [address], [place], [address], 5 18:44:45 RPR (rapid plasma reagin), serum 2024 025 [facility] (Lab), [address], [place], [address], 5 18:44:46 pap, IG + reflex HPV if ASC-U - if positive HPV run subtyping 16,18/45 add gc/ct/trich 2024 025 [facility] (Lab), [address], [place], [address], 5 08:17:04 Referral None recorded. Procedures None recorded. Surgeries salpingecto my, laparoscopi c (SURG) 2024 025 [facility], [facility] [address], [address], 5 11:06:29 Imaging US, breast, unilateral 2024 025 [facility] [place], [address] [place] [address], [address], 5 04:02:11 Medication Orders None recorded. Patient [...] rosales: Martin Mary Colle cted: 12/23 1713 [employer] Order ing Locat ion: [place] Path[facility] yamilet [...] as clini mike north nted. Not Available [facility] (Lab) [address], [place], [address], 12/26/2022 14:21:13 02/01/20 25 01/31/2025 HEPAT ITIS [...] : add gc/ct /tric h Not Available [facility] (Lab) [address], [place], [address], 02/01/2025 18:44:45 02/01/20 25 01/31/2025 HIV 1/2 ANTIG EN/AN TIBOD Y, REFLE X CONFI RMATI ON HIV antigen/anti body Nonrea ctive nonrea ctive : Routi ne : ENDOC ERVIC AL/CE RVICA L : add gc/ct /tric h HIV-1 antig en and HIV-1 /HIV- 2 antib odies were not detec angela. No labor atory evide nce of HIV infec tion. Not Available [facility] (Lab) [address], [place], [address], 02/01/2025 18:44:45 02/01/20 25 01/31/2025 HEPAT ITIS C ANTIB PADMA SCREE N, REFLE X TO CONFI RMATI ON hepatitis C antibody Non-re active non-re active Antib odies to HCV Not Detec angela, does not exclu de the possi bilit y of expos ure to HCV. : Routi ne : ENDOC ERVIC AL/CE RVICA L : add gc/ct /tric h Not Available [facility] (Lab) [address], [place], [address], 02/01/2025 18:44:46 02/01/20 25 01/31/2025 RPR SCREE N, REFLE X TITER /CONF IRMAT ION RPR qualitative Nonrea ctive nonrea ctive : Routi ne : ENDOC ERVIC AL/CE RVICA L : add gc/ct /tric h Not Available [facility] (Lab) [address], [place], [address], 02/01/2025 18:44:46 02/01/20 25 01/31/2025 HEPAT ITIS [...] : add gc/ct /tric h Not Available [facility] (Lab) [address], [place], [address], 02/01/2025 18:44:46 02/01/20 25 01/31/2025 IMAGE GUIDE D PAP, REFLE X HPV IF ASCUS ONLY image guided Pap, reflex HPV ASCUS only SEE RESULT S BELOW CASE REPOR T: Cytol ogy Gynec ologi mei Repor t Case: [id number] Autho minoo ybarra Provi rosales: Ruby Jolley, [employer] Colle cted: 01/31 1110 Order ing Locat [...] as annai mike north nted. Not Available [facility] (Lab) [address], [place], [address], 02/02/2025 08:17:04 02/01/20 25 01/31/2025 CT/GC AND TRICH OMONA S VAGIN ISAC (RRNA ), THINP REP VIAL CT/GC and trichomonas vaginalis (rrna), thinprep SEE RESULT S BELOW negati ve CHLAM YDIA TRACH OMATI S, PCR: Negat bailee NEISS ERIA GONOR RHOEA E, PCR: Negat bailee TRICH OMONA S VAGIN ISAC RIBOS OMAL RNA (RRNA ): Negat bailee Not Available [facility] (Lab) [address], [place], [address], 02/02/2025 08:17:05 Result Notes None recorded. Problems Name Problem SNOMED Code Status Onset Date Resolution Date Notes Provider Name and Address Organization Details Recorded Time Chronic intersti tial cystitis Active on disabili ty for this. did well last pregnanc y without flares. Luz Maria Brodymandi hl null, [facility] 2 14:31:25 Mixed anxiety and depressi ve disorder 128895567 Active no meds for years, stable Luz Maria Brodysandytie hl null, [facility] 2 14:31:25 Ex-smoke r 1640110 Active quit when found out Luz Maria Brodymandi hl null, [facility] 2 14:31:25 Chronic intersti tial cystitis Completed on disabili ty for this. did well last pregnanc y without flares. Luz Maria Brodysandytie hl null, [facility] 2 14:31:25 Mixed anxiety and depressi ve disorder 410322283 Completed no meds for years, stable Luz Maria Brodysandytie hl null, [facility] 2 14:31:25 Ex-smoke r [id number] Completed quit when found out Luz Maria Pedroza hl null, [facility] 2 14:31:25 Pain in pelvis 90540290 Completed pelvic girdle pain per Pt. Luz Maria Pedroza hl null, [facility] 2 14:31:25 Kidney stone 65295889 Completed Luz Maria Pedroza hl null, [facility] 2 14:31:25 Chronic intersti tial cystitis 062589626 Completed 201710/15/2021 Intersti tial cystitis (chronic ) with hematuri a;Record ed Elsewher e: No Locat ion: [facility] S ource: EHR Tuber Helper concha: Ankit Ennis ce ID: 0001 Victor M lable Time: 10:30:00 AM Krupa Suarez [facility], [facility] 2 16:26:57 Deep pain on intercou rse 187890075 Completed 201710/15/2021 Deep dyspareu yaz;Reji rded Elsewher e: No Locat ion: [facility] S ource: EHR Tuber Helper concha: Ankit Ennis ce ID: 0001 Victor M lable Time: 10:30:00 AM Krupa Suarez [facility], [facility] 2 16:27:13 Vulvodyn ia 325586188 Completed 201710/15/2021 Vulvodyn ia;Recor ded Elsewher e: No Locat ion: [facility] S ource: EHR Tuber Helper concha: N Shirati ce ID: 0001 Victor M lable Time: 10:30:00 AM Krupa Suarez [facility], [facility] 2 16:27:02 Pelvic and perineal pain 739117177 Completed 201710/15/2021 Pelvic pain;Rec orded Elsewher e: No Locat ion: [facility] S ource: EHR Tuber Helper concha: N Practi ce ID: 0001 Victor M lable Time: 02:00:00 PM Krupa shcwarz [facility] 2 16:27:22 Pregnanc y test negative 166537863 Completed 201710/15/2021 Encounte r for pregnanc y test, result negative ;Recorde d Elsewher e: No Locat ion: [facility] S ource: EHR Tuber Helper concha: N Practi ce ID: 0001 Victor M lable Time: 01:30:00 PM Krupa schwarz [facility] 2 16:27:16 Abnormal uterine bleeding [id number] 100 Completed 201710/15/2021 Dysfunct ional uterine bleeding ;Recorde d Elsewher e: No Locat ion: [facility] S ource: [facility] Tuber Helper concha: N Practi ce ID: 0001 Victor M lable Time: 01:30:00 PM Krupa schwarz [facility] 2 16:27:36 Disorder of breast 02236183 Completed 201710/15/2021 Disorder of breast, unspecif ied;Reji rded Elsewher e: No Locat ion: [facility] S ource: EHR Tuber Helper concha: N Practi ce ID: 0001 Victor M lable Time: 11:15:00 AM Krupa schwarz [facility] 2 16:27:47 Finding of sensatio n of breast Completed 201710/15/2021 Mastodyn ia;Pract ice ID: 0001 Krupa shcwarz [facility] 2 16:27:00 Abdomina l pain 82746924 Completed 201710/15/2021 Abdomina l pain;Rec orded Elsewher e: No Locat ion: [facility] S ource: EHR Tuber Helper concha: N Practi ce ID: 0001 Victor M lable Time: 03:19:00 PM Krupa schwarz [facility] 2 16:26:58 Pregnanc y detectio n examinat ion Completed 201710/15/2021 Encounte r for pregnanc y test, result positive ;Recorde d Elsewher e: No Locat ion: [facility] S ource: EHR Tuber Helper concha: N Practi ce ID: 0001 Victor M lable Time: 03:19:00 PM Krupa schwarz, [facility] 2 16:27:45 Finding of contents of cervix 351909847 Completed 201710/15/2021 Weeks of gestatio n of pregnanc y not specifie d;Record ed Elsewher e: No Locat ion: [facility] S ource: EHR Tuber Helper concha: N Practi ce ID: 0001 Victor M lable Time: 10:15:00 AM Krupa schwarz, [facility] 2 16:27:15 Finding of trunk structur e Completed 201710/15/2021 Oth diseases and conditio ns compl preg/chl dbrth;Pr actice ID: 0001 Krupa schwarz, [facility] 2 16:27:08 Gestatio n less than 9 weeks 157837692 Completed 201710/15/2021 Less than 8 weeks gestatio n of pregnanc y;Practi ce ID: 0001 Krupa schwarz, [facility] 2 16:27:[address] Concept Completed 201710/15/2021 Encntr for pressure controller exam (general ) (routine ) w/o abn findings ;Practic e ID: 0001 Krupa schwarz, [facility] 2 16:27:26 Pregnanc y, childbir th and puerperi um finding Completed 201710/15/2021 Encounte r for supervis ion of normal 1st pregnanc y;Record ed Elsewher e: No Locat ion: [facility] S ource: EHR Tuber Helper concha: N Practi ce ID: 0001 Victor M lable Time: 03:15:00 PM Krupa schwarz, [facility] 2 16:27:28 Rubella screenin g status 691848250 Completed 201710/15/2021 Encounte r for antenata l screenin g, unspecif ied;Reji rded Elsewher e: No Locat ion: [facility] S ource: EHR Tuber Helper concha: N Practi ce ID: 0001 Victor M lable Time: 03:15:00 PM Krupa schwarz, [facility] 2 16:27:12 Antenata l screenin g Completed 201710/15/2021 Encounte r for antenata l screenin g for nuchal transluc ency;Pra ctice ID: 0001 Krupa schwarz, [facility] 2 16:27:10 Normal pregnanc y in multigra chapis [id number] Completed 201710/15/2021 Encounte r for suprvsn of normal pregnanc y, first trimeste r;Practi ce ID: 0001 Krupa schwarz, [facility] 2 16:27:38 Pregnanc y, childbir th and puerperi um finding Completed 201810/15/2021 Encntr for suprvsn of normal first preg, second trimeste r;Practi ce ID: 0001 Krupa Katyalix schwarz, [facility] 2 16:27:29 Antenata l screenin g for malforma tion Completed 201810/15/2021 Encounte r for antenata l screenin g for malforma tions;Pr actice ID: 0001 Krupa schwarz, [facility] 2 16:27:43 Pregnanc y, childbir th and puerperi um finding Completed 201810/15/2021 Oth pregnanc y related conditio ns, second trimeste r;Practi ce ID: 0001 Krupa schwarz, [facility] 2 16:27:05 Pain Completed 201810/15/2021 Lower abdomina l pain, unspecif ied;Prac nataliia ID: 0001 Krupa schwarz, [facility] 2 16:27:19 Gestatio n period, 25 weeks 29351645 Completed 201810/15/2021 25 weeks gestatio n of pregnanc y;Practi ce ID: 0001 Krupa Suarez [facility], [facility] 2 16:27:44 Migraine 22075562 Completed 201810/15/2021 Migraine , unsp, not intracta ble, without status migraino smith;Prac nataliia ID: 0001 Krupa schwarz, [facility] 2 16:27:33 Gestatio n period, 27 weeks 82665255 Completed 201810/15/2021 27 weeks gestatio n of pregnanc y;Practi ce ID: 0001 Krupa Suarez [facility], [facility] 2 16:27:39 Clinical finding Completed 201810/15/2021 Edema;Re corded Elsewher e: No Locat ion: [facility] S ource: EHR Tuber Helper concha: N Practi ce ID: 0001 Victor M lable Time: 01:00:00 PM Krupa schwarz, [facility] 2 16:27:20 Gestatio n period, 30 weeks [id number] Completed 201810/15/2021 30 weeks gestatio n of pregnanc y;Practi ce ID: 0001 Krupa Erick chong, [facility] 2 16:27:41 Uterine size for dates discrepa ncy Completed 201810/15/2021 Uterine size-maggie e discrepa ncy, third trimeste r;Record ed Elsewher e: No Locat ion: [facility] S ource: EHR Tuber Helper concha: N Practi ce ID: 0001 Victor M lable Time: 09:30:00 AM Krupa Erick chong, [facility] 2 16:27:03 Gestatio n period, 32 weeks [id number] Completed 201810/15/2021 32 weeks gestatio n of pregnanc y;Practi ce ID: 0001 Krupa Erick schwarz, [facility] 2 16:27:46 Gestatio n period, 36 weeks 04545260 Completed 201810/15/2021 36 weeks gestatio n of pregnanc y;Record ed Elsewher e: No Locat ion: [facility] S ource: EHR Tuber Helper concha: N Practi ce ID: 0001 Victor M lable Time: 11:00:00 AM Krupa Erick chong, [facility] 2 16:27:40 Pregnanc y, childbir th and puerperi um finding Completed 201810/15/2021 Encntr for suprvsn of normal first preg, third trimeste r;Record ed Elsewher e: No Locat ion: [facility] S ource: EHR Tuber Helper concha: N Practi ce ID: 0001 Victor M lable Time: 11:15:00 AM Krupa Erick schwarz, [facility] 2 16:27:30 Lacerati on of female perineum Completed 201810/15/2021 Second degree perineal lacerati on during delivery ;Practic e ID: 0001 Krupa schwarz, [facility] 2 16:27:07 Single live from singleto n pregnanc y 824467295 Completed 201810/14/2021 Single live ;Pr actice ID: 0001 Krupa schwarz, [facility] 2 12:01:14 Gestatio n period, 39 weeks 90181341 Completed 201810/15/2021 39 weeks gestatio n of pregnanc y;Practi ce ID: 0001 Krupa schwarz, [facility] 2 16:27:49 Lochia finding Completed 201810/15/2021 Encounte r for routine postpart um follow-u p;Record ed Elsewher e: No Locat ion: [facility] S ource: EHR Tuber Helper concha: N Shirati ce ID: 0001 Victor M lable Time: 09:30:00 AM [facility] 2 16:27:32 Uses combined oral contrace ption 144536757 Completed 201810/15/2021 Encounte r for initial prescrip tion of contrace ptive pills;Re corded Elsewher e: No Locat ion: [facility] S ource: EHR Tuber Helper concha: N Shirati ce ID: 0001 Victor M lable Time: 09:30:00 AM Krupa schwarz [facility] [address] 16:27:[address] Concept Completed 201810/15/2021 Encntr for general adult medical exam w/o abnormal findings ;Recorde d Elsewher e: No [facility]: EHR Tuber Helper concha: N Practi ce ID: 0001 Victor M lable Time: 08:45:00 AM Krupa Suarez [facility] 2 16:27:25 Screenin g for malignan t neoplasm of cervix Completed 201810/15/2021 Encounte r for screenin g for malignan t neoplasm of cervix;R ecorded Elsewher e: No Locat ion: [facility] S ource: EHR Tuber Helper concha: Ankit Ennis ce ID: 0001 Victor M lable Time: 08:45:00 AM Krupa schwarz, [facility] 2 16:26:55 Breast lump [id number] Completed 201910/15/2021 Mass in breast;R ecorded Elsewher e: No Locat ion: [facility] S ource: EHR Tuber Helper concha: N Raymon ce ID: 0001 Victor M lable Time: 10:30:00 AM Krupa schwarz, [facility] 2 16:27:50 Pregnanc y 13321334 Completed 202105/30/2022 Luz Maria kennedy null, [facility] 2 14:31:30 COVID-19 293296965 Completed 2021 baby asa serial growth Luz Maria Kasia kennedy null, [facility] 2 14:31:25 Low-lyin g placenta 057594755 Completed 2021 RESOLVED Luz Maria kennedy null, [facility] 2 14:31:25 Abnormal ity of heart 602709030 Completed 2021 Fluid around heart. [facility] 04/23. - Level II u/s WNL - just routine care Luz Maria kennedy null, [facility] 2 14:31:25 Problem Notes None recorded. Procedures Surgical History Date Name Laterality Status Provider Name and Address Organization Details Recorded Time 025 SALPINGECTOMY, LAPAROSCOPIC (SURG) completed [place] Gastelum [facility] 05/30/2025 11:51:45 025 Date of Last Pap Smear completed Noelle Boyd [facility] 02/28/2025 12:08:23 019 nerve block completed [facility] 04/23/2022 10:30:59 018 Dilation of urethra completed [facility] 05/13/2022 15:24:53 017 Dilation of urethra completed [facility] 05/13/2022 15:24:50 016 Dilation of urethra completed [facility] 05/13/2022 15:24:46 016 Dilation of urethra completed [facility] 05/13/2022 15:25:14 015 laparoscopy completed [facility] 04/23/2022 10:30:50 015 Dilation of urethra completed [facility] 05/13/2022 15:24:43 015 Dilation of urethra completed [facility] 05/13/2022 15:25:11 014 Cystourethroscopy completed [facility] 04/23/2022 10:32:23 014 dilation of urethra completed [facility] 04/23/2022 10:32:30 Imaging Results None recorded. [...] Elsewher e: No Locat ion: [facility] M odify By: Encount er DateTime : 11/30/19 03:45:00 PM [...] Prescrib ed Elsewher e: No [facility] By: [email or web address] Encount er DateTime : 02/10/20 09:00:00 AM [...] Prescrib ed Elsewher e: No Locat ion: [facility] odify By: [email or web address] Encount er DateTime : 12/24/19 04:13:05 PM [...] Prescrib ed Elsewher e: Yes [facility] By: isadora parrish DateTime : 10/28/19 [...] Elsewher e: No Locat ion: [facility] odify By: apoorva harris DateTime : 01/29/20 18 01:30:00 PM Not Available Not Available Not Available 28 mg-800 mcg tablet 10/14 completed Prescrib ed Elsewher e: Yes Loca tion: [facility] odify By: apoorva harris DateTime : 08/13/20 18 03:15:00 PM Not Available Not Available Not Available Vitals Date Recorded Body height Body mass index (BMI) Body weight Systolic And Diastolic Provider Name and Address Organization Details Last Updated DateTime 12/23/2022 157.48 cm 23.4 kg/m2 39649.82 g 100/55 mm[Hg] [facility] 12/23/2022 16:17:05 Date Recorded Body height Body mass index (BMI) Body weight Systolic And Diastolic Provider Name and Address Organization Details Last Updated DateTime 01/31/2025 157.48 cm 30.5 kg/m2 16618.93 g 115/82 mm[Hg] Princess Lucia [facility] 01/31/2025 11:15:47 Date Recorded Body height Body mass index (BMI) Body weight Systolic And Diastolic Provider Name and Address Organization Details Last Updated DateTime 02/28/2025 157.48 cm 30.4 kg/m2 56552.33 g 108/73 mm[Hg] Noelle [facility] 02/28/2025 12:08:05 Date Recorded Body height Body mass index (BMI) Body weight Systolic And Diastolic Provider Name and Address Organization Details Last Updated DateTime 04/21/2025 157.48 cm 31.1 kg/m2 26725.7 g 117/76 mm[Hg] Noelle [facility] 04/21/2025 16:42:29 Social History Question Answer Notes LastModified by Organizat ion Details LastModified Time Tobacco Smoking Status Former Smoker Nancie schwarz [facility] 12/12/2019 12:03:40 If You Are , What Was Your Level Of Alcohol Consumption Prior To ? Occasional [email or web address] Information not available 04/04/2022 Are You Blind Or Do You Have Difficulty Seeing? No [email or web address] Information not available 04/04/2022 What Is Your Level Of Caffeine Consumption? Occasional [email or web address] Information not available 04/04/2022 In The 14 Days Before Symptom Onset, Have You Had Close Contact With A Laboratory-confir med COVID-19 While That Case Was Ill? No [email or web address] Information not available 04/04/2022 In The 14 Days Before Symptom Onset, Have You Had Close Contact With A Person Who Is Under Investigation For COVID-19 While That Person Was Ill? No [email or web address] Information not available 04/04/2022 Have You Been To An Area Known To Be High Risk For COVID-19? No [email or web address] Information not available 04/04/2022 Are You Deaf Or Do You Have Serious Difficulty Hearing? No [email or web address] Information not available 04/04/2022 What Type Of Diet Are You Following? REGULAR Information not available 04/04/2022 Do You Use Your Seat Belt Or Car Seat Routinely? Yes [email or web address] Information not available 04/04/2022 Do You Have Smoke And Carbon Monoxide Detectors In Your Home? Yes [email or web address] Information not available 04/04/2022 Do You Use Sunscreen Routinely? Yes [email or web address] Information not available 04/04/2022 Has Tobacco Cessation Counseling Been Provided? No [email or web address] Information not available 04/04/2022 Do You Have Difficulty Walking Or Climbing Stairs? No [email or web address] Information not available 04/04/2022 Sex: Unknown Functional Status Question Answer Note LastModified by Organizat ion Details LastModified Time Do you use any illicit or recreational drugs? No [email or web address] Information not available 04/04/2022 Do you or have you ever used any other forms of tobacco or nicotine? No [email or web address] Information not available 04/04/2022 What is your level of alcohol consumption? None Information not available 04/04/2022 Are you able to walk independently without assistance or assistive devices? YESWOREST [email or web address] Information not available 04/04/2022 Are you able to care for yourself independently? Yes [email or web address] Information not available 04/04/2022 Do you have difficulty dressing, bathing, grooming, or toileting? No [email or web address] Information not available 04/04/2022 What is your exercise level? Occasional [email or web address] Information not available 04/04/2022 Mental Status Question Answer Note LastModified by Organization D etails LastModified Time Do you feel stressed (tense, restless, nervous, or anxious, or unable to sleep at night)? [id number] Information not available 04/04/2022 Family History Relationship [...] (Food, seasonal, environmental ) N Other Y Drug/Latex Allergies/Reactions N Blood Transfusion N Breast Cancer N Dermatologic Disorders N Lung Disease N Defects or Inherited Disease N Breast Problem N Gestational Diabetes N Hematologic disorders Y Anesthesia Complications N History of STI N Deep Vein Thrombosis N Polycystic ovary syndrome N Anxiety Disorder Y Autoimmune disease N Arthritis N Polyps N Infertility N Acid Reflux (GERD) N History of abnormal pap N Cancer N Varicosities N Stroke N Neurologic/Epilepsy N Endometriosis N High Cholesterol N Fibromyalgia Y Headaches N Kidney Disease N Heart Problems N Thyroid Problems N Kidney or Bladder Problems Y GI Problems N Eating Disorder N Anemia [...] ICD10 Code Diagnosis IMO Codes Diagnosis Note [id number] Esha Tilley [facility] [address] [address] 04/02/2020 09:16:43 04/02/2020 09:54:44 Mass of left breast [id number] N63.20 Left breast lump still present but [...] counseling and review of plan of care. [id number] Liz Glass CNM [place] [address] [address] 10/15/2021 15:56:23 10/16/2021 18:33:00 Gynecologic examination 69848114 Z01.419 Z11.3 Z11.8 test positive 556816777 Z32.01 Risk factors addressed: Tobacco Cessation, Safe [...] n and address preventati ve healthcare . [id number] MD Jose Gr [address],[place] [address] 10/15/2021 15:53:03 10/15/2021 16:48:52 [id number] Albania Brock MD [facility] [address],[place] [address] 11/26/2021 10:27:57 11/26/2021 13:11:41 [id number] Albania Brock MD [facility] [address],[place] [address] 11/26/2021 10:28:29 11/26/2021 12:21:30 Routine care [id number] Z34.92 [id number] Anna Nguyen [facility] [address],[place] [address] 12/25/2021 16:55:49 12/25/2021 18:49:34 Routine care 502571580 Z34.92 [id number] Lavon Winter MD [facility] [address],[place] [address] 12/25/2021 16:55:30 12/25/2021 18:44:54 screening 337239671 Z36.3 [id number] MD Jose Gr [address],[place] [address] 02/13/2022 14:26:19 02/13/2022 15:07:14 Low-lying placenta 789093509 O44.42 O99.891 U07.1 Z3A.27 [id number] MD Jose Gr [address],[place] [address] 02/13/2022 15:09:40 02/13/2022 16:11:50 Routine care 372409171 Z34.82 [id number] MD Jose Gr [address],[place] [address] 03/10/2022 16:15:10 03/10/2022 17:46:28 Routine care 363885088 Z34.82 [id number] Lavon Winter MD [facility] [address],[place] [address] 03/21/2022 14:59:06 03/21/2022 15:41:36 Routine care 599594194 Z34.82 Calculus o f kidney and ureter 884132475 N20.2 [id number] Albania Brock MD [facility] [address],[place] [address] 03/31/2022 16:54:16 03/31/2022 17:37:20 COVID-19 954941286 U07.1 [id number] [facility] [address],[place] [address] 04/04/2022 14:06:11 04/04/2022 14:32:17 Routine care 642629186 Z34.92 [id number] Lavon Winter MD [facility] [address],[place] [address] 04/23/2022 09:15:22 04/23/2022 11:30:59 COVID-19 948454163 U07.1 O99.891 Z86.16 Z3A.37 [id number] [facility] [address],[place] [address] 04/23/2022 09:17:28 04/23/2022 11:30:12 Routine care 717155741 Z34.92 [id number] Lavon Winter MD [facility] [address],[place] [address] 04/23/2022 11:17:32 04/23/2022 15:30:27 Abnormality of heart 047101161 O36.8999 [id number] Liz Glass [facility] [address],[place] [address] 04/29/2022 10:45:53 04/29/2022 11:48:17 Routine care 861594310 Z34.93 [id number] [facility] [address],[place] [address] 05/07/2022 13:51:32 05/07/2022 14:41:03 Routine care 452956299 Z34.92 [id number] Anna JoyJacquelyn Patrick, [facility] [address],[place] [address] 06/18/2022 15:31:00 06/18/2022 16:19:09 care [id number] Z39.2 [id number] Esha Tilley [facility] [address],[place] [address] 12/23/2022 15:50:34 12/23/2022 17:15:37 Gynecologic examination 97577575 Z01.419 Take Calcium with Vitamin D 1200mg [...] for consult if interested in Tubal ligation [id number] Ruby Jolley [facility] [address],[place] [address] 01/31/2025 10:57:31 01/31/2025 12:10:46 Gynecologic examination 28407497 Z01.132 [id number] [facility] - will schedule with if desires permanent [...] advised. Questions answered. Venereal d isease screening 740392286 Z11.3 [id number] Sexually t ransmitted infectious disease 0927512 A64 Mass of left breast 1224 167271 6582673 N63.20 [id number] order given for left breast u/s [id number] Lavon Winter MD [facility] [address] [address] 02/28/2025 11:40:46 02/28/2025 12:51:16 Sterilization education 948214061 Z30.09 [id number] This patient presents for female sterilizat ion. [...] minutes on the patient's care in total. [id number] Lavon Winter MD [facility] [address] [address] 04/04/2025 08:44:03 04/06/2025 09:15:23 [id number] Lavon Winter MD [facility] [address] [address] 04/21/2025 15:43:24 04/21/2025 16:51:53 Surgical follow-up [id number] Z09 [id number] This patient is a 30-year-ol d female [...] Catalan 04/01/2025 1 [place] Jose Catalan [id number] Jose Catalan 01/31/2025 2 [place] Jose Catalan [id number] Jose Catalan 05/31/2025 2 [place] Jose Catalan [id number] Jose Catalan Notes Date Note Type Note [...] smears. Esha Tilley, [facility]- [address], [place], [address], [facility] 12/23/2022 17:14:46 5 text/html Annual GYNReported [...] since. would like STI testing Princess schwarz, [facility] 01/31/2025 11:51:29 5 text/html This patient [...] be scheduled. spent more than 40 minutes [id number]. More than 50% was counseling. We made a decision to perform surgery. I spent over 30 minutes on the patient's care in total. Lavon Winter MD [address], [place], [address], [facility] 02/28/2025 12:46:50 5 text/html This patient is a 30-year-old female who presents for postop follow-up. She is 1 week postop from a laparoscopic bilatera Salpingectomy. Her incisions are clean dry and intact. She has no complaints. She is recovering normally. She will follow up as needed. Lavon Winter MD [address], [place], [address], [facility] 04/21/2025 16:51:14 OBGyn Episode Ob Episode Information Episode Created Date Number of Fetuses Patient Bloodtype Patient rh Status Prepregnancy Weight lbs Domestic Partner Domestic Partner Phone Father Name Radiographer Status 04/02/20 20 1 CLOSED Fetus Data [...] Domestic Partner Domestic Partner Phone Father Name Radiographer Status 11/27/19 22 1 A Positive 134 CLOSED Fetus Data First Name Last Name Admitted to NICU Weight (g) Sex Living Outcome Pediatric Complications Fetus ID Race Codes Race Delivery Type true 3175.14 4 M true Full Term see nursery notes [id number] Vaginal Delivery Problems Problem Notes 28WK PANEL WNL Problem Name Start Date End Date Resolution Snomed Code Not e COVID-19 01/24/2022 [id number] baby asa serial growth Low-lying placenta 02/13/2022 SELFRESOLVED 1359533 07 RESOLVED Chronic interstitial cystitis 493352740 on disability f or this. did well last without flares. Mixed anxiety and depressive disorder 401899818 no meds for years, stable Ex-smoker 8854923 quit when found out Abnormality of heart 04/23/2022 894479625 Fluid around fe muna heart. M 04/23. - Level II u/s WNL - just routine care Pain in pelvis 48868288 pelvi c girdle pain per Pt. Kidney stone 45117681 Ananda Calculation Initial Ananda Date Initial Exam [...] Date Ultra Sound Latest Days Gestation 0 [id number] 11/26/2021 05/14/20 22 0 Pre- Flowsheet Flowsheet Date 11/26/2021 Varela Score Blood [...] Weight in lbs Pre/Post Dialysis Refused Weight 142.699636492653 BP Diastolic BP Location Tested BP Systolic [...] Weight in lbs Pre/Post Dialysis Refused Weight 146.935849013913 BP Diastolic BP Location Tested BP Systolic [...] Weight in lbs Pre/Post Dialysis Refused Weight 153.023488216000 BP Diastolic BP Location Tested BP Systolic [...] Weight in lbs Pre/Post Dialysis Refused Weight 155.58132136110 BP Diastolic BP Location Tested BP Systolic [...] Weight in lbs Pre/Post Dialysis Refused Weight 158.215618180550 BP Diastolic BP Location Tested BP Systolic [...] Weight in lbs Pre/Post Dialysis Refused Weight 156.203745939822 BP Diastolic BP Location Tested BP Systolic [...] Weight in lbs Pre/Post Dialysis Refused Weight 158.073284762454 BP Diastolic BP Location Tested BP Systolic [...] Weight in lbs Pre/Post Dialysis Refused Weight 159.193786177348 BP Diastolic BP Location Tested BP Systolic [...] Weight in lbs Pre/Post Dialysis Refused Weight 159.256071832107 BP Diastolic BP Location Tested BP Systolic [...] Estim ated Date of Delivery false Thalassemia (Nepali, Kazakh, Mediterranean, Or Background): MCV < 80 false Neural Tube Defect (Meningomyelocele, Spina Bifi da, Or Anencephaly) false Congenital Heart Defect false Down Syndrome false Dougie-Sachs (eg, Samaritan, Cajun, Argentine-Gibraltarian) f alse Man Disease false Sickle Cell [...]
--- NOTE | 2025-07-15 09:48 | ED.LOWEXIN ---
HPI - Extremity Injury (Lower) General Chief Complaint: Extremity Injury, Lower Stated Complaint: RT Foot Injury Time Seen by Provider: 07/15/25 09:50 Source: patient Mode of arrival: ambulatory Limitations: no limitations History of Present Illness HPI Narrative: Filomena is a 30 year old female patient presenting to the clinic today with c/o right ankle pain x1 day. She reports she fell in a dog whole and twisted her ankle last night. Has been resting, icing, and elevating her right ankle. Rates pain 7/10. Has a lot of pain with ambulation/bearing weight. Related Data Home Medications ?Medication ?Instructions ?Recorded ?Confirmed ?Last Taken ?Type No Home Medications 07/15/25 07/15/25 Unknown History Allergies Allergy/AdvReac Type Severity Reaction Status Date / Time Quinolones AdvReac Intermediate Nausea and Verified 07/15/25 10:01 Vomiting Review of Systems Review of Systems: Pertinent positives per HPI. Patient denies any fever, chills, rash, headache, visual changes, dizziness, cough, runny nose, sore throat, shortness of breath, chest pain, palpitations, nausea, vomiting, diarrhea, constipation, abdominal pain, or any urinary issues. [facility] Past Medical History Medical History SARS-CoV-2 positive August 2020 Other urethral stricture, female Interstitial cystitis Surgical History Surgical History History of bladder surgery Family History Family History Grandparent Congestive heart failure Acute rheumatic arthritis Father Acute rheumatic arthritis Mother Acute rheumatic arthritis Social History Social History Smoking packs per day: 0.5 Smoking cigarettes per day: 10.0 Years smoked: 15 Smoking pack-years: 7.50 Smoking status: Former smoker Tobacco type: cigarettes Smoking end date: 08/31/21 Alcohol intake: current Drinks per week: 3 Substance use: never Living arrangements: with family Gender identity (if verbalized by the patient): Female Spiritual care concerns: No Comments At the time of my signature, I reviewed and agree with the nursing past medical, surgical, social, and family history. There is no relevant family history pertinent to the patient complaint. Exam Narrative: General: Well-developed, well nourished, in no apparent distress Head: Normocephalic, atraumatic. Cardio: Regular rate and rhythm, s1 and s2 normal, no murmur appreciated. Resp: Clear to auscultation bilaterally, no rhonchi, rales, wheezing or rubs. Musculoskeletal: No deformity, tender to palpation over the right lateral and medial ankle, limited range of motion, pain with dorsiflexion of the foot, muscle strength strong and equal, peripheral pulse strong, no edema, no cyanosis, sitting in wheel chair. Course Course Emergency Course: Portions of this record may have been created with voice recognition software. Level of Care: Express Care Visit Vital Signs Vital signs: Vital Signs Temperature 36.6 C 07/15/25 09:49 Pulse Rate 72 07/15/25 09:49 Respiratory Rate 18 07/15/25 09:49 Blood Pressure 124/71 07/15/25 09:49 Pulse Oximetry 99 07/15/25 09:49 Oxygen Delivery Room Air 07/15/25 09:49 Temperature 36.6 C 07/15/25 09:49 Pulse Rate 72 07/15/25 09:49 Respiratory Rate 18 07/15/25 09:49 Blood Pressure 124/71 07/15/25 09:49 Pulse Oximetry 99 07/15/25 09:49 Oxygen Delivery Room Air 07/15/25 09:49 Vital signs reviewed MDM - Extremity Injury (Lower) MDM Narrative Medical decision making narrative: At the time of visit patient is resting comfortably on the exam table. Patient appears to be nontoxic. c/o right ankle pain x1 day. She reports she fell in a dog whole and twisted her ankle last night. Has been resting, icing, and elevating her right ankle. Rates pain 7/10. Has a lot of pain with ambulation/bearing weight. On exam patient has tenderness to palpation over the lateral and medial ankle, pain with dorsal flexion, limited range of motion due to pain. X-ray of the right ankle was ordered. Diagnostics: Right ankle x-ray was performed and was negative for any sign of fracture or malalignment. Plan: I suspect patient has right ankle sprain. Myron wrap and crutches was given to the patient. Ortho on-call provider was given to the patient just in case she needs to follow up if symptoms persist or she may follow up with her primary care doctor. Supportive measures were discussed with the patient and they voiced understanding discharge instructions and agrees to treatment plan. Return precautions reviewed Differential Diagnosis Differential diagnosis: Likely ankle sprain and strain and ankle fracture Discharge Plan Discharge Clinical Impression: Right ankle sprain Qualifiers: Encounter type: initial encounter Involved ligament of ankle: unspecified ligament Qualified Code(s): S93.401A - Sprain of unspecified ligament of right ankle, initial encounter Patient Disposition: Home Condition: Stable Instructions: Antibiotic Form, Ankle Sprain (ED), Ankle Stirrup Splint (ED) Additional Instructions: X-ray of the right ankle is negative for any sign of fracture or malalignment Rest, ice, elevate, and wear myron wrap as directed May wear ankle stirrup splint when when trying to bear weight/walk Tylenol/motrin for pain as discussed. Gradually bear weight No running or sports until healed. Follow up with your PCP if symptoms persist more than 1 week. Patient Language: Greek Prescriptions: No Action No Home Medications Follow-up/Referrals: Meg,Amish Rios MD [Primary Care Provider] Jordan Allen MD [Physician, Orthopedics] - 3 Days Referral Note: Acute right ankle sprain Clinical Impression: Right ankle sprain Time of Disposition: 10:32 Quality NIHSS Nursing Documentation ED NIHSS nursing documentation: reviewed/agree
[2025-07-15 09:49] VITALS: BP 124/71; PULSE 72; RESP 18; TEMP 36.6; O2SAT 99
== END 2025-07-15 10:38 | disposition home or self-care (01) ==
PROVIDERS: Emergency Provider Nurse Practitioner Family; PCP Family Medicine
DX: S93.401A Sprain of unspecified ligament of right ankle, initial encounter (principal); W17.2XXA Fall into hole, initial encounter; Z87.891 Personal history of nicotine dependence; Z86.16 Personal history of COVID-19
CPT/HCPCS: 73610; 99213; G0463